=== PATIENT | female | born 1960 | race Caucasian/White ===

== ENCOUNTER 2020-05-12 14:31 | Outpatient (REF) | payer MEDICARE, MEDICAID, SELFPAY ==
[2020-05-12 16:39] LABS: Hematocrit 44.9 % (37-47); Hemoglobin 15.3 g/dl (12.0-16.0); Mean Corpuscular HGB Conc 34.1 g/dl (31.0-35.0); Mean Corpuscular Hemoglobin 32.1 pg (27.0-33.0); Mean Corpuscular Volume 94.1 fL (80-98); Mean Platelet Volume 10.4 fL (9.4-12.3); Platelet Count 352 X10*3/uL (160-400); Red Blood Count 4.77 X10*6/uL (4.20-5.50); Red Cell Distribution Width 11.6 % (11.0-16.0); White Blood Count 9.4 X10*3/uL (4.8-10.8)
[2020-05-12 17:06] LABS: Alanine Aminotransferase 19 U/L (0-31); Albumin Level 4.3 g/dL (3.5-5.0); Alkaline Phosphatase 66 U/L (39-117); Anion Gap 11 (12-20); Aspartate Amino Transferase 22 U/L (5-31); Bilirubin Total 0.7 mg/dL (0.0-1.0); Blood Urea Nitrogen 20 mg/dL (9-16); Calcium 9.2 mg/dL (8.4-10.2); Carbon Dioxide 36 mmol/L (22-29); Chloride 98 mmol/L (96-108); Estimated Glomerular Filt Rate 57; Glucose Random 78 mg/dL (60-115); Magnesium 2.2 mg/dL (1.6-2.6); Potassium 4.1 mmol/l (3.3-5.1); Sodium 141 mmol/L (135-145); Total Protein 6.9 g/dL (6.5-8.0)
[2020-05-12 17:29] LABS: Thyroid Stimulating Hormone 1.99 uIU/mL (0.32-4.0)
== END 2020-05-12 14:32 | disposition home or self-care (01) ==
LOC: HO.HMGCLDS 14:31
PROVIDERS: PCP Internal Medicine; Visit Provider Internal Medicine
DX: K58.2 Mixed irritable bowel syndrome (principal); R33.9 Retention of urine, unspecified; I10 Essential (primary) hypertension; R00.2 Palpitations
CPT/HCPCS: 36415; 80053; 83735; 84443; 85027

== ENCOUNTER → 2020-06-02 14:38 | Outpatient (REF) | payer MEDICARE, MEDICAID, SELFPAY ==
--- NOTE | 2020-06-02 14:43 | ECG_ITS ---
Hook-up date: 2020-06-02 14:51:00 Duration: 47:59:00 Test Indications: PALPITATIONS Medications: 94430 QRS complexes 343 Ventricular ectopics which represent <1 % of total QRS comp. 327 Supraventricular ectopics which represent <1 % of total QRS comp. * Paced QRS complexs which represent % of total QRS comp. VENTRICULAR ECTOPY 343 Isolated 3 Bigeminal Cycles 0 Couplets 0 Runs 0 Beats in Runs * Beats LONGEST at * BPM at :: -- * Beats FASTEST at * BPM at :: -- SUPRAVENTRICULAR ECTOPY 296 Isolated 7 Couplets 3 Runs 17 Beats in Runs 7 Beats LONGEST at 125 BPM at 08:55:06 2020-06-03 7 Beats FASTEST at 125 BPM at 08:55:06 2020-06-03 HEART RATES 41 MIN at 05:03:37 2020-06-03 64 AVG 105 MAX at 13:39:41 2020-06-03 LONGEST RR 1.5280 secs at 07:16:27 2020-06-03 S-T LEVELS Channel 1 - 128 mm at 14:51:00 2020-06-02 - 128 mm at 14:51:00 2020-06-02 Channel 2 - 128 mm at 14:51:00 2020-06-02 - 128 mm at 14:51:00 2020-06-02 Channel 3 - 128 mm at 03:41:01 -- - 128 mm at 03:41:01 Basic rhythm Normal sinus rhythm No long pause or profound bradycardia Occasional Premature ventricular complexes Occasional Premature atrial complexes No sustained arrhythmias Patient did not report any symptoms in the diary Referred By: Sharon Macario Overread By: CARRIE ALTAMIRANO MD
== END ==
LOC: HO.CARD 14:38
PROVIDERS: Visit Provider Internal Medicine
DX: R00.2 Palpitations (principal); I10 Essential (primary) hypertension; K58.2 Mixed irritable bowel syndrome; R33.9 Retention of urine, unspecified
CPT/HCPCS: 93225; 93226

== ENCOUNTER 2020-06-08 13:46 | Outpatient (REF) | payer MEDICARE, MEDICAID, SELFPAY | END 2020-06-08 13:47 | disposition home or self-care (01) | LOC: HO.LAB 13:46 | PROVIDERS: Visit Provider Internal Medicine | DX: Z20.828 Contact with and (suspected) exposure to other viral communicable diseases (principal) | CPT/HCPCS: C9803; U0003 ==

== ENCOUNTER 2020-11-01 11:36 | Outpatient (REF) | payer MEDICARE, MEDICAID, SELFPAY ==
[2020-11-01 14:36] LABS: Alanine Aminotransferase 16 U/L (0-31); Albumin Level 4.5 g/dL (3.5-5.0); Alkaline Phosphatase 68 U/L (39-117); Anion Gap 14 (12-20); Aspartate Amino Transferase 22 U/L (5-31); Bilirubin Direct 0.3 mg/dL (0.0-0.5); Bilirubin Total 0.9 mg/dL (0.0-1.0); Blood Urea Nitrogen 19 mg/dL (9-16); Calcium 9.7 mg/dL (8.4-10.2); Carbon Dioxide 33 mmol/L (22-29); Chloride 101 mmol/L (96-108); Cholesterol 208 mg/dL; Estimated Glomerular Filt Rate > 60; Glucose Fasting 87 mg/dL (60-99); HDL Cholesterol 53 mg/dL; LDL Cholesterol Calculated 127 mg/dl; Potassium 3.9 mmol/L (3.3-5.1); Sodium 144 mmol/L (135-145); Total Protein 7.1 g/dL (6.5-8.0); Triglycerides 140 mg/dL
== END 2020-11-01 11:37 | disposition home or self-care (01) ==
LOC: HO.HMGCLDS 11:36
PROVIDERS: PCP Internal Medicine; Visit Provider Internal Medicine
DX: E78.9 Disorder of lipoprotein metabolism, unspecified (principal); I10 Essential (primary) hypertension
CPT/HCPCS: 36415; 80048; 80061; 80076

== ENCOUNTER 2020-11-08 10:00 | Outpatient (REF) | payer MEDICARE, MEDICAID, SELFPAY ==
[2020-11-08 10:21] LABS: COVID-19 Test Negative (Negative)
== END 2020-11-08 10:01 | disposition home or self-care (01) ==
LOC: HO.LAB 10:00
PROVIDERS: Visit Provider Internal Medicine
DX: Z20.822 Contact with and (suspected) exposure to COVID-19 (principal)
CPT/HCPCS: 36415; 87635; C9803

== ENCOUNTER 2021-01-05 10:51 | Outpatient (REF) | payer MEDICARE, MEDICAID, SELFPAY | END 2021-01-05 10:52 | disposition home or self-care (01) | LOC: HO.HMGCLDS 10:51 | PROVIDERS: PCP Internal Medicine; Visit Provider Internal Medicine | DX: Z20.822 Contact with and (suspected) exposure to COVID-19 (principal) | CPT/HCPCS: C9803; U0003; U0005 ==

== ENCOUNTER 2021-04-04 10:59 | Outpatient (REF) | payer MEDICARE, MEDICAID, SELFPAY ==
[2021-04-04 14:02] LABS: Alanine Aminotransferase 24 U/L (0-31); Albumin Level 4.4 g/dL (3.5-5.0); Alkaline Phosphatase 59 U/L (39-117); Anion Gap 13 (12-20); Aspartate Amino Transferase 24 U/L (5-31); Bilirubin Total 0.8 mg/dL (0.0-1.0); Blood Urea Nitrogen 24 mg/dL (9-16); Calcium 9.7 mg/dL (8.4-10.2); Carbon Dioxide 33 mmol/L (22-29); Chloride 101 mmol/L (96-108); Estimated Glomerular Filt Rate 52; Glucose Random 94 mg/dL (60-115); Potassium 4.2 mmol/L (3.3-5.1); Sodium 143 mmol/L (135-145); Total Protein 7.2 g/dL (6.5-8.0)
== END 2021-04-04 11:00 | disposition home or self-care (01) ==
LOC: HO.HMGCLDS 10:59
PROVIDERS: PCP Internal Medicine; Visit Provider Internal Medicine
DX: E66.09 Other obesity due to excess calories (principal); E78.9 Disorder of lipoprotein metabolism, unspecified; I10 Essential (primary) hypertension
CPT/HCPCS: 36415; 80053

== ENCOUNTER 2021-05-08 08:53 | Outpatient (REF) | payer MEDICARE, MEDICAID, SELFPAY ==
--- NOTE | ~2021-05-08 | MM_ITS ---
EXAMINATION: MM SCREENING DIGITAL BREAST TOMOSYNTHESIS, BILATERAL CLINICAL INFORMATION: Screening. Asymptomatic. The lifetime risk of breast cancer based on the Tyrer-Cuzick Model is 6%. COMPARISON: Mammography: 05/25/2019, 04/01/2018, 11/13/2016 TECHNIQUE: Digital breast tomosynthesis is performed in both the craniocaudal and mediolateral oblique views along with computer-aided detection (CAD). Synthesized 2D images are generated from the tomosynthesis. Additional right MLO view is provided. FINDINGS: The breasts are almost entirely fatty (ACR BI-RADS breast composition Category a). There are no significant masses, abnormal calcifications, or other abnormalities. Background stromal densities are stable. No developing density or architectural abnormality. The axilla are unremarkable. No significant changes. MM/MM tomosynthesis screening BI IMPRESSION: No mammographic evidence of malignancy. ASSESSMENT: BI-RADS 1: Negative RECOMMENDATION: Routine annual mammography screening. This patient's information was entered into a reminder system with a target due date for their next mammogram.
== END 2021-05-08 08:54 | disposition home or self-care (01) ==
LOC: HO.MAMMO 08:53
PROVIDERS: Visit Provider Internal Medicine
DX: Z12.31 Encounter for screening mammogram for malignant neoplasm of breast (principal)
CPT/HCPCS: 77063; 77067

== ENCOUNTER 2021-05-30 14:22 | Outpatient (REF) | payer MEDICARE, MEDICAID, SELFPAY ==
[2021-05-30 17:49] LABS: Urine Cytology See Pathology rpt
== END 2021-05-30 14:23 | disposition home or self-care (01) ==
LOC: HO.LNP 14:22
PROVIDERS: PCP Internal Medicine
DX: R31.9 Hematuria, unspecified (principal)
CPT/HCPCS: 88112; 99212

== ENCOUNTER 2021-07-05 15:19 | Outpatient (REF) | payer MEDICARE, MEDICAID, SELFPAY ==
--- NOTE | ~2021-07-05 | US_ITS ---
EXAMINATION: US RETROPERITONEAL LIMITED (RENAL ONLY) CLINICAL INFORMATION: Hematuria, unspecified. COMPARISON: None TECHNIQUE: Real-time imaging of the kidneys. FINDINGS: RIGHT KIDNEY: 11.0 x 6.1 x 7.2 cm (SAG x AP x TRV). The kidney is normal in size, contour, and echogenicity. Renal cortical thickness is normal. No renal calculi or hydronephrosis. There is an anechoic cyst in the midpole measuring 3.7 x 3.8 x 3.4 cm. LEFT KIDNEY: 10.3 x 6.4 x 6.7 cm (SAG x AP x TRV). The kidney is normal in size, contour, and echogenicity. Renal cortical thickness is normal. No calculi or focal parenchymal lesions. No hydronephrosis. US/US renal BI IMPRESSION: There is an anechoic cyst midpole right kidney measuring 3.7 x 3.8 x 3.4 cm. The left kidney is unremarkable.
== END 2021-07-05 15:20 | disposition home or self-care (01) ==
LOC: HO.HMGCX 15:19
DX: R31.9 Hematuria, unspecified (principal)
CPT/HCPCS: 76775

== ENCOUNTER → 2021-09-18 10:10 | Outpatient (BNVA) | payer MEDICARE, MEDICAID, SELFPAY | PROVIDERS: PCP Internal Medicine | DX: R31.9 Hematuria, unspecified (principal); R35.0 Frequency of micturition; I10 Essential (primary) hypertension; E78.5 Hyperlipidemia, unspecified; F17.210 Nicotine dependence, cigarettes, uncomplicated; Z88.1 Allergy status to other antibiotic agents; Z88.0 Allergy status to penicillin; Z88.8 Allergy status to other drugs, medicaments and biological substances | CPT/HCPCS: 51798; 99212 ==

== ENCOUNTER → 2021-10-30 10:45 | Outpatient (BNVA) | payer MEDICARE, MEDICAID, SELFPAY | PROVIDERS: Visit Provider Advanced Practice Midwife | DX: Z01.419 Encounter for gynecological examination (general) (routine) without abnormal findings (principal) ==

== ENCOUNTER → 2021-11-16 09:49 | Outpatient (BNVA) | payer MEDICARE, MEDICAID, SELFPAY | PROVIDERS: PCP Internal Medicine; Visit Provider Urology | DX: N95.8 Other specified menopausal and perimenopausal disorders (principal); R31.9 Hematuria, unspecified; N36.2 Urethral caruncle; N95.2 Postmenopausal atrophic vaginitis | CPT/HCPCS: 52000; Q3014 ==

== ENCOUNTER 2022-02-22 13:18 | Outpatient (REF) | payer MEDICARE, MEDICAID, SELFPAY ==
[2022-02-22 14:08] LABS: MANUAL DIFF FLAG NO
[2022-02-22 14:21] LABS: Basophils Absolute Auto 0.1 X10*3/uL (0.0-0.2); Basophils Percent Auto 0.5 % (0-2); Eosinophils Absolute Auto 0.1 X10*3/uL (0.0-0.4); Eosinophils Percent Auto 0.5 % (0-4); Hematocrit 42.2 % (37.0-47.0); Hemoglobin 14.7 g/dl (12.0-16.0); Imm Gran Abs Auto 0.04 X10*3/uL (0.00-0.03); Imm Gran Pct Auto 0.4 % (0.0-0.4); Lymphocytes Absolute Auto 3.3 X10*3/uL (1.2-4.9); Mean Corpuscular HGB Conc 34.8 g/dl (31.0-35.0); Mean Corpuscular Hemoglobin 31.8 pg (27.0-33.0); Mean Corpuscular Volume 91.3 fL (80.0-98.0); Mean Platelet Volume 10.5 fL (9.4-12.3); Monocytes Absolute Auto 0.7 X10*3/uL (0.1-1.2); Monocytes Percent Auto 6.4 % (2-11); Neutrophils Absolute Auto 6.8 x10*3/uL (2.0-8.3); Neutrophils Percent Auto 62.2 % (45-73); Platelet Count 325 X10*3/uL (160-400); Red Blood Count 4.62 X10*6/uL (4.20-5.50); White Blood Count 10.9 X10*3/uL (4.8-10.8)
[2022-02-22 14:50] LABS: Alanine Aminotransferase 28 U/L (0-31); Albumin Level 4.5 g/dL (3.5-5.0); Alkaline Phosphatase 65 U/L (39-117); Anion Gap 17 (12-20); Aspartate Amino Transferase 31 U/L (5-31); Bilirubin Total 1.3 mg/dL (0.0-1.0); Blood Urea Nitrogen 17 mg/dL (9-16); Calcium 9.8 mg/dL (8.4-10.2); Carbon Dioxide 32 mmol/L (22-29); Chloride 98 mmol/L (96-108); Estimated Glomerular Filt Rate > 60; Glucose Random 92 mg/dL (60-115); Potassium 3.9 mmol/L (3.3-5.1); Sodium 143 mmol/L (135-145); Total Protein 7.2 g/dL (6.5-8.0)
[2022-02-23 22:07] LABS: LDL Cholesterol Direct 124 mg/dL (<100)
== END 2022-02-22 13:19 | disposition home or self-care (01) ==
LOC: HO.HMGCLDS 13:18
PROVIDERS: Visit Provider Internal Medicine
DX: E78.9 Disorder of lipoprotein metabolism, unspecified (principal); I10 Essential (primary) hypertension
CPT/HCPCS: 36415; 80053; 83721; 85025

== ENCOUNTER 2022-09-12 11:42 | Outpatient (REF) | payer MEDICARE, MEDICAID, SELFPAY ==
[2022-09-12 13:53] LABS: MANUAL DIFF FLAG NO
[2022-09-12 14:03] LABS: Basophils Absolute Auto 0.1 X10*3/uL (0.0-0.2); Basophils Percent Auto 0.7 % (0-2); Eosinophils Absolute Auto 0.1 X10*3/uL (0.0-0.4); Eosinophils Percent Auto 1.2 % (0-4); Hematocrit 42.9 % (37.0-47.0); Hemoglobin 14.7 g/dl (12.0-16.0); Imm Gran Abs Auto 0.03 X10*3/uL (0.00-0.03); Imm Gran Pct Auto 0.3 % (0.0-0.4); Lymphocytes Absolute Auto 3.1 X10*3/uL (1.2-4.9); Lymphocytes Percent Auto 34.8 % (20-40); Mean Corpuscular HGB Conc 34.3 g/dl (31.0-35.0); Mean Corpuscular Hemoglobin 31.2 pg (27.0-33.0); Mean Corpuscular Volume 91.1 fL (80.0-98.0); Mean Platelet Volume 9.9 fL (9.4-12.3); Monocytes Absolute Auto 0.7 X10*3/uL (0.1-1.2); Monocytes Percent Auto 7.7 % (2-11); Neutrophils Percent Auto 55.3 % (45-73); Platelet Count 328 X10*3/uL (160-400); Red Blood Count 4.71 X10*6/uL (4.20-5.50); Red Cell Distribution Width 11.9 % (11.0-16.0)
[2022-09-12 14:21] LABS: Alanine Aminotransferase 25 U/L (0-31); Albumin Level 4.3 g/dL (3.5-5.0); Alkaline Phosphatase 56 U/L (39-117); Anion Gap 16 (12-20); Aspartate Amino Transferase 21 U/L (5-31); Bilirubin Total 0.9 mg/dL (0.0-1.0); Blood Urea Nitrogen 26 mg/dL (9-16); Calcium 9.8 mg/dL (8.4-10.2); Carbon Dioxide 31 mmol/L (22-29); Chloride 101 mmol/L (96-108); Estimated Glomerular Filt Rate > 60; Glucose Random 99 mg/dL (60-115); Potassium 3.8 mmol/L (3.3-5.1); Sodium 144 mmol/L (135-145); Total Protein 6.9 g/dL (6.5-8.0)
[2022-09-13 19:43] LABS: LDL Cholesterol Direct 137 mg/dL (<100)
== END 2022-09-12 11:43 | disposition home or self-care (01) ==
LOC: HO.HMGCLDS 11:42
PROVIDERS: PCP Internal Medicine; Visit Provider Internal Medicine
DX: I10 Essential (primary) hypertension (principal); E78.9 Disorder of lipoprotein metabolism, unspecified
CPT/HCPCS: 36415; 80053; 83721; 85025

== ENCOUNTER 2022-12-01 13:03 | Emergency (ER) | payer MEDICARE, MEDICAID, SELFPAY ==
--- NOTE | ~2022-12-01 | XR_ITS ---
EXAMINATION: XR HAND, LEFT CLINICAL INFORMATION: Dorsal pain status post dog bite COMPARISON: December 26, 2015 TECHNIQUE: PA, lateral, and oblique views of the left hand. FINDINGS: There is no evidence of acute fracture or dislocation of the left hand. No radiopaque foreign bodies identified. There is edema seen about the dorsum of the carpal metacarpal joints with a few foci of air being present. There is degenerative change with spurring about the proximal and distal interphalangeal joints as well as the first carpal metacarpal joint with some subchondral cysts about the first metacarpal head there is mild spurring about the first carpal metacarpal joint. XR/XR hand LT min 3V IMPRESSION: Edema about the dorsum of the hand in region of a few gas densities. No radiopaque foreign body. Changes of osteoarthritis.
[2022-12-01 14:09] VITALS: BP 130/89; PULSE 82; RESP 18; TEMP 37.1; O2SAT 97; BMI 28.4
--- NOTE | 2022-12-01 14:14 | PC.NURSE ---
pt left hand placed in solution of equal parts iodine, NS, and Hydrogen peroxide- tetanus to be updated, and analgesia to be provided
[2022-12-01] MEDS: Acetaminophen 325 MG TABLET 975 MG PO (14:21)
[2022-12-01] MEDS: Diphth,Pertus(ACell),Tet Adult 0.5 ML SYRINGE IM (14:21)
[2022-12-01] MEDS: Ibuprofen 600 MG TABLET PO (14:21)
--- NOTE | 2022-12-01 14:25 | PC.NURSE ---
pt medicated per MAR
--- NOTE | 2022-12-01 14:27 | ED.ANIMALBIT ---
HPI - Animal Bite General Chief Complaint: Animal Bite Stated Complaint: animal bite Time Seen by Provider: 12/01/22 13:39 Source: patient Mode of arrival: ambulatory Limitations: no limitations History of Present Illness HPI narrative: 62-year-old female with history of HTN, HLD, obesity, hypertensive nephropathy, deafness, sciatica who presents to the ER for evaluation of a dog bite to her left hand that happened 09:00 this morning. She reports that it is unknown dog, it is up-to-date on his vaccinations. The dog 0 bit down on her left hand, puncturing the dorsal aspect, she feels like it got down to the bone. She also has some bruising to the palm but no open wounds. No active bleeding on arrival. She states she has pain and limited motion of her digits 2 through 5. She feels like her hand is stiff. She reports severe pain. She is not up-to-date on her tetanus shot. MD complaint: animal bite Onset (ago): hour(s) Animal: dog Description of animal: household pet Mechanism: bite Location - Extremities: left: hand Pain description: sharp Severity scale (1-10): 9 Context: playing with animal Associated symptoms: weakness Treatments prior to arrival: wound dressing(s) Related Data Patient tetanus UTD: No Previous Rx's Medication Instructions Recorded diltiazem HCl 240 mg 240 mg PO DAILY #90 caps 07/11/22 capsule,extended release 24 hr hydrochlorothiazide 12.5 mg capsule 12.5 mg PO DAILY #90 caps 07/11/22 losartan 50 mg tablet 50 mg PO DAILY #90 caps 07/11/22 simvastatin 10 mg tablet 10 mg PO BEDTIME #90 caps 07/11/22 meloxicam 15 mg tablet 15 mg PO DAILY 14 days #14 tabs 07/12/22 cefuroxime axetil 500 mg tablet 500 mg PO BID #14 tabs 12/01/22 hydrocodone 5 mg-acetaminophen 325 1 tab PO Q8H PRN severe pain 12/01/22 mg tablet (scale score 7-10) #6 tabs metronidazole 500 mg tablet 500 mg PO Q8H 7 days #21 tabs 12/01/22 Allergies Allergy/AdvReac Type Severity Reaction Status Date / Time penicillin V Allergy Unknown N/V Verified 07/12/22 10:25 Penicillins [PENICILLINS] Allergy Unknown IN HISTORY Verified 07/12/22 10:25 AND DOESN'T REMEMBER carisoprodol [From [facility]] AdvReac Intermediate VOMITED Verified 07/12/22 10:25 amoxicillin Allergy Unknown GI upset Uncoded 07/12/22 10:25 Review of Systems Review of Systems: Yes all other systems are reviewed and are negative [facility], [facility] Past Medical History Medical History Abscess of breast, right Back pain COPD (chronic obstructive pulmonary disease) Deafness Generalized arthritis Hyperlipidemia Hypertension, essential IBS (irritable bowel syndrome) Incomplete emptying of bladder Lipid disorder Palpitations Thoracic disc herniation Urinary urgency Surgical History History of colonoscopy History of removal of cyst History of surgery Family History Family History Father Dementia Mother No problems noted. Other Mental health disorder Social History Social History Housing: Apartment Alcohol intake: current Alcohol intake frequency: a few times a month Patient Tobacco Use Status: Current everyday Tobacco user Tobacco use type: Cigarette Cigarettes Per Day: 10 e-Cigarette/Vaping Use: Never Used Advance Directives: No Current occupational status: unemployed and retired Sexual orientation: Straight/Heterosexual Gender identity: Female Cognitive needs: No Hearing needs: Yes Vision needs: Yes Physical Exam ED Vital Signs: Vital Signs - 24 hr 12/01/22 14:09 Temperature 98.7 F Pulse Rate 82 Respiratory Rate 18 Blood Pressure 130/89 Pulse Oximetry 97 Oxygen Delivery Method Room Air BMI result Body Mass Index 28.4 Appearance: Alert. Oriented X3. No acute distress. HEENT: normal inspection CVS: Normal heart rate and rhythm. Pulses normal. Respiratory: No respiratory distress. Skin: Skin warm and dry. Normal skin color. Normal skin turgor. No rashes. Extremities: left dorsal hand with 2 small <1 cm superficial abrasions/ Skin tears with mild surrounding edema and early ecchymosis. Pain with hand grasp. Neurovascularly intact distally. 2+ radial pulse. No snuffbox tenderness. The thenar eminence without open wounds but has areas of ecchymosis. Neuro: Oriented X 3. No motor deficit. No sensory deficit. Medications Administered Discontinued Medications Generic Name Dose Route Start Last Admin Trade Name Althea PRN Reason Stop Dose Admin Acetaminophen 975 mg 12/01/22 14:09 12/01/22 14:21 Acetaminophen 325 Mg Tablet PO 12/01/22 14:10 975 mg ONCE ONE Administration Cefuroxime Axetil 500 mg 12/01/22 14:40 12/01/22 14:50 Cefuroxime Axetil 500 Mg Tablet PO 12/01/22 14:41 500 mg ONCE ONE Administration Diphtheria/Tetanus/Acell Pertussis 0.5 ml 12/01/22 14:07 12/01/22 14:21 Diphth,Pertus(Acell),Tet Adult 0.5 Ml Syringe IM 12/01/22 14:08 0.5 ml .ONCE ONE Administration Ibuprofen 600 mg 12/01/22 14:09 12/01/22 14:21 Ibuprofen 600 Mg Tablet PO 12/01/22 14:10 600 mg ONCE ONE Administration Metronidazole 500 mg 12/01/22 14:40 12/01/22 14:51 Metronidazole 500 Mg Tablet PO 12/01/22 14:41 500 mg ONCE ONE Administration Medical Decision Making Medical Decision Making MDM Narrative: 62-year-old female presents to the ER for evaluation of a dog bite to her left hand that occurred this morning. Dog in the household patent is up-to-date on shots. She was given her tetanus shot today. She was started on oral antibiotics, cefuroxime and Flagyl given her penicillin allergy. She has puncture santos on the dorsal aspect of the left hand. X-ray does not seem to have any bony involvement. Area was soaked in solution of saline, Hydrea peroxide, iodine. Area was cleansed and irrigated. Antibiotic ointment was applied and a clean sterile dressing along with a Ken wrap for compression and support. Discussed wound care. She is stable for discharge home. Return precautions were discussed. Differential Diagnosis Differential Diagnoses: The differential diagnosis associated with the presentation includes Dog bite, open fracture, contaminated wound, tetanus, rabies exposure Independent Interpretation I performed an independent interpretation of an: Plain X-Ray Interpretation: No appreciated fracture, agrees radiologist read Radiology Impression Discussion of test interpretation with radiology: I have reviewed the radiologist's reading. Radiologist Impression: ?XR/XR hand LT min 3V IMPRESSION: Edema about the dorsum of the hand in region of a few gas densities. No radiopaque foreign body. ? Changes of osteoarthritis. External Record Review External record reviewed: Prior outpatient labs and Prior outpatient radiology Prescription Management I considered prescription management with: Pain Medication and Antibiotic Chronic Conditions Patient?s care impacted by: Hypertension Critical Care Time Critical Care Time Critical Care Time: No Discharge Plan Discharge Clinical Impression: Dog bite Patient Disposition: Home, Self-Care Instructions: Animal Bite (ED) Additional Instructions: Your x-ray today did not show any evidence of bone involvement from the dog bite. Recommend daily dressing changes. Recommend bacitracin or Neosporin to the cuts once per day. Allow opened air for several hours per day. Use ice to the area to help with pain and swelling. Wear the compression/ Ken wrap as needed for pain and swelling. Take the prescribed antibiotics to help prevent infection. It is important you take the entire course and do not miss any doses. Recommend Tylenol and Motrin for [id number] pain. Take the prescribed narcotic pain medication for severe pain only. Do not drive after taking this medication. Follow-up with your doctor. If you develop signs of infection such as increased pain, swelling, redness, drainage or any other concerning sign or symptom call 911 or come back to the ER for further evaluation. Prescriptions: New cefuroxime axetil 500 mg tablet 500 mg PO BID Qty: 14 0RF metronidazole 500 mg tablet 500 mg PO Q8H 7 Days Qty: 21 0RF hydrocodone-acetaminophen 5-325 mg tablet 1 tab PO Q8H PRN (Reason: severe pain (scale score 7-10)) Qty: 6 0RF Rx Instructions: Partial Fill upon patient request. No Action simvastatin 10 mg tablet 10 mg PO BEDTIME Qty: 90 0RF diltiazem HCl 240 mg capsule,extended release 24hr 240 mg PO DAILY Qty: 90 0RF hydrochlorothiazide 12.5 mg capsule 12.5 mg PO DAILY Qty: 90 0RF losartan 50 mg tablet 50 mg PO DAILY Qty: 90 0RF meloxicam 15 mg tablet 15 mg PO DAILY 14 Days Qty: 14 0RF Referrals: Lupillo Vázquez MD [Primary Care Provider] - (dog bite) Interventions: ED Discharge Assessment Last Done: 12/01/22 15:59 Discharge Date/Time: 12/01/22 16:00
[2022-12-01] MEDS: metroNIDAZOLE 500 MG TABLET PO (14:51)
--- NOTE | 2022-12-01 14:54 | PC.NURSE ---
Pt medicated per AUG- pt given flagyl and vantin, XR pending
== END 2022-12-01 16:00 | disposition home or self-care (01) ==
PROVIDERS: Emergency Provider Emergency Medicine; PCP Internal Medicine
DX: S61.452A Open bite of left hand, initial encounter (principal); S60.512A Abrasion of left hand, initial encounter; F17.210 Nicotine dependence, cigarettes, uncomplicated; W54.0XXA Bitten by dog, initial encounter; Y93.9 Activity, unspecified; Y92.9 Unspecified place or not applicable; Y99.9 Unspecified external cause status; Z79.899 Other long term (current) drug therapy; Z71.6 Tobacco abuse counseling; Z23 Encounter for immunization
CPT/HCPCS: 73130; 90471; 90715; 99283; 99284

== ENCOUNTER 2023-02-27 11:42 | Outpatient (AMB) | payer MEDICARE, MEDICAID, SELFPAY ==
--- NOTE | 2023-02-27 11:45 | MHC.PC.OV ---
Vital Signs 02/27/23 11:48 Height 5 ft 4 in Weight 222 lb BMI 38.1 BP 122/80 Blood Pressure Location Lt brachial Position Sitting Pulse 64 Pulse Source Pulse Oximeter Temp 98.2 F Temp Source Oral Pulse Oximetry (%) 98 Oxygen Delivery Method Room Air Intake Visit Reasons: follow up labs, continuation of care Allergies penicillin V Allergy (Unknown, Verified 02/27/23 11:49) N/V Penicillins [PENICILLINS] Allergy (Unknown, Verified 02/27/23 11:49) IN HISTORY AND DOESN'T REMEMBER carisoprodol [From [facility]] Adverse Reaction (Intermediate, Verified 02/27/23 11:49) VOMITED amoxicillin Allergy (Unknown, Uncoded 02/27/23 11:49) GI upset Medication List - Last Reconciled 02/27/23 by Lupillo Vázquez MD cefuroxime axetil 500 mg PO BID diltiazem HCl 240 mg PO DAILY hydrochlorothiazide 12.5 mg PO DAILY losartan 50 mg PO DAILY metronidazole 500 mg PO Q8H 7 days simvastatin 10 mg PO BEDTIME Tobacco use date assessed: 02/27/23 HPI follow up labs, continuation of care HPI Details Patient is a 63-year-old female who is hearing impaired came in today for a follow-up appointment Patient is able to read lips and is able to communicate Tells me that she has been having pain left lower quadrant for few days now finally she got through with 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 She is also in need of other refills which I have sent for her. She look non toxic and is comfortable, we talked about diet restrictions in diverticulitis as patient is hungry and was going to get something to eat. Due for labs to be done today Blood pressure is stable with diltiazem 240 mg once a day hydrochlorothiazide 12.5 mg once a day and losartan 50 mg once a day, patient is tolerating medications no side effects Lipids controlled with simvastatin 10 mg once a day, Showing me a skin growth on left shoulder which looks like a wart, I offered her a dermatology appointment she said that she is going to treated herself. BMI is elevated patient need to lose weight Follow-up 3 months [facility] Medical History Abscess of breast, right Back pain COPD (chronic obstructive pulmonary disease) Deafness Generalized arthritis Hyperlipidemia Hypertension, essential IBS (irritable bowel syndrome) Incomplete emptying of bladder Lipid disorder Palpitations Thoracic disc herniation Urinary urgency Surgical History History of colonoscopy History of removal of cyst History of surgery Family History Father Dementia Mother No problems noted. Other Mental health disorder Social History Housing: Apartment Alcohol intake: current Alcohol intake frequency: a few times a month Patient Tobacco Use Status: Current everyday Tobacco user Tobacco use type: Cigarette Cigarettes Per Day: 10 e-Cigarette/Vaping Use: Never Used Current occupational status: unemployed and retired Sexual orientation: Straight/Heterosexual Gender identity: Female Cognitive needs: No Hearing needs: Yes Vision needs: Yes Questionnaire PHQ-9 Over the last 2 weeks, how often have you been bothered by any of the following problems? 1. Little interest or pleasure in doing things: not at all 2. Feeling down, depressed, or hopeless: not at all 3. Trouble falling or staying asleep, or sleeping too much: not at all 4. Feeling tired or having little energy: several days 5. Poor appetite or overeating: not at all 6. Feeling bad about yourself - or that you are a failure or have let yourself or your family down: not at all 7. Trouble concentrating on things, such as reading the newspaper or watching television: not at all 8. Moving or speaking so slowly that other people could have noticed. Or the opposite - being so fidgety or restless that you have been moving around a lot more than usual: not at all 9. Thoughts that you would be better off or of hurting yourself in some way: not at all Total score: 1 Depression Screening Interpretation: Negative 63298 - PHQ-9 Billing: Yes Source: Developed by Drs. Dejan Cruz, Louise Gomez, Leodan Harrison and colleagues, with an educational maria eugenia from [employer]. Thrive Questionnaire Date Thrive assessed: 02/28/22 MARK ANTHONY-7 AMB Questionnaire MARK ANTHONY-7 Date MARK ANTHONY - 7 assessed: 02/28/22 Source: Developed by Drs. Dejan Cruz, Louise Gomez, Leodan Harrison and colleagues, with an educational maria eugenia from [employer]. Review of Systems Const Denies chills and Denies fever(s) ENT Denies epistaxis and Denies nasal discharge Card Denies chest pain Resp Denies chest congestion, Denies cough and Denies hemoptysis Skin/Breast Denies rash Neuro Reports no additional complaints Psych Reports no additional complaints Endo Reports no additional complaints Physical exam (Primary Care) Vital Signs: Last Vital Signs Temp 98.2 F 02/27/23 11:48 Pulse 64 02/27/23 11:48 BP 122/80 02/27/23 11:48 Pulse Ox 98 02/27/23 11:48 Oxygen Delivery Method Room Air 02/27/23 11:48 BMI result Body Mass Index 38.1 Tobacco/Smoking Status: Tobacco use Status Tobacco use date assessed 02/27/23 02/27/23 11:52 Patient Tobacco Use Status Current everyday Tobacco 02/27/23 11:52 Tobacco use type Cigarette 02/27/23 11:52 e-Cigarette/Vaping Use Never Used 02/27/23 11:52 Depression Screening Interpretation: Negative Thrive Assessment: Date of Thrive Assessment Date Thrive assessed 02/28/22 02/27/23 11:52 Const General: cooperative, comfortable and no acute distress Orientation/consciousness: patient oriented x3 HENMT Head: Yes normocephalic Eyes General: appearance normal, both eyes and all related structures Neck Neck: Yes supple Resp Effort & Inspection: normal respiratory effort, no cough and no stridor Cardio Rhythm: regular rhythm Heart sounds: S1 normal heart sound present and S2 normal heart sound present Skin General skin exam: turgor normal Neuro General: patient oriented x3, tone normal and moves all extremities Extrem Right lower extremity: no edema Left lower extremity: no edema Assessment and Plan Assessment & Plan (1) Hypertension, essential: Code(s): I10 - Essential (primary) hypertension (2) Lipid disorder: Code(s): E78.9 - Disorder of lipoprotein metabolism, unspecified (3) Obesity due to excess calories: Code(s): E66.09 - Other obesity due to excess calories Qualifiers: Obesity classification: adult class 2 (BMI 35 - 39.9) Serious obesity comorbidity presence: with serious comorbidity Body mass index: BMI 38.0-38.9 Qualified Code(s): E66.01 - Morbid (severe) obesity due to excess calories; Z68.38 - Body mass index [BMI] 38.0-38.9, adult (4) Hypertensive nephropathy: Code(s): I12.9 - Hypertensive chronic kidney disease with stage 1 through stage 4 chronic kidney disease, or unspecified chronic kidney disease (5) Acute diverticulitis: Code(s): K57.92 - Diverticulitis of intestine, part unspecified, without perforation or abscess without bleeding (6) Abnormal skin growth: Code(s): D49.2 - Neoplasm of unspecified behavior of bone, soft tissue, and skin Plan Patient is a 63-year-old female who is hearing impaired came in today for a follow-up appointment Patient is able to read lips and is able to communicate Tells me that she has been having pain left lower quadrant for few days now finally she got through with 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 She is also in need of other refills which I have sent for her. She look non toxic and is comfortable, we talked about diet restrictions in diverticulitis as patient is hungry and was going to get something to eat. Due for labs to be done today Blood pressure is stable with diltiazem 240 mg once a day hydrochlorothiazide 12.5 mg once a day and losartan 50 mg once a day, patient is tolerating medications no side effects Lipids controlled with simvastatin 10 mg once a day, Showing me a skin growth on left shoulder which looks like a wart, I offered her a dermatology appointment she said that she is going to treated herself. Nephropathy: Kidney functions are stable BMI is elevated patient need to lose weight Follow-up 3 months Orders: Orders Comprehensive Met. Panel Today E66.09 - Other obesity due to excess calories, E78.9 - Disorder of lipoprotein metabolism, unspecified, I10 - Essential (primary) hypertension, K58.9 - Irritable bowel syndrome without diarrhea LDL Cholesterol Direct Today E66.09 - Other obesity due to excess calories, E78.9 - Disorder of lipoprotein metabolism, unspecified, I10 - Essential (primary) hypertension, K58.9 - Irritable bowel syndrome without diarrhea Complete Blood Count Auto Diff Today E66.09 - Other obesity due to excess calories, E78.9 - Disorder of lipoprotein metabolism, unspecified, I10 - Essential (primary) hypertension, K58.9 - Irritable bowel syndrome without diarrhea Medications: Refilled diltiazem HCl 240 mg PO DAILY 90 caps 0RF hydrochlorothiazide 12.5 mg PO DAILY 90 caps 0RF losartan 50 mg PO DAILY 90 caps 0RF simvastatin 10 mg PO BEDTIME 90 caps 0RF Coding Level of Care Code Est Pt Level 4 (39975) Diagnoses Hypertension, essential I10 Lipid disorder E78.9 Obesity due to excess calories E66.01; Z68.38 Obesity classification: adult class 2 (BMI 35 - 39.9) Serious obesity comorbidity presence: with serious comorbidity Body mass index: BMI 38.0-38.9 Hypertensive nephropathy I12.9 Acute diverticulitis K57.92 Abnormal skin growth D49.2
[2023-02-27 11:48] VITALS: BP 122/80; PULSE 64; TEMP 36.8; O2SAT 98; BMI 38.1
== END 2023-02-27 12:20 | disposition home or self-care (01) ==
PROVIDERS: PCP Internal Medicine; Visit Provider Internal Medicine
DX: I10 Essential (primary) hypertension (principal); E66.01 Morbid (severe) obesity due to excess calories; Z68.38 Body mass index [BMI] 38.0-38.9, adult; K57.92 Diverticulitis of intestine, part unspecified, without perforation or abscess without bleeding; E78.9 Disorder of lipoprotein metabolism, unspecified; I12.9 Hypertensive chronic kidney disease with stage 1 through stage 4 chronic kidney disease, or unspecified chronic kidney disease; D49.2 Neoplasm of unspecified behavior of bone, soft tissue, and skin
CPT/HCPCS: 99214

== ENCOUNTER 2023-02-27 12:08 | Outpatient (REF) | payer MEDICARE, MEDICAID, SELFPAY ==
[2023-02-27 13:32] LABS: MANUAL DIFF FLAG NO
[2023-02-27 13:45] LABS: Basophils Percent Auto 0.4 % (0-2); Eosinophils Absolute Auto 0.1 X10*3/uL (0.0-0.4); Eosinophils Percent Auto 0.7 % (0-4); Hematocrit 42.2 % (37.0-47.0); Hemoglobin 14.6 g/dl (12.0-16.0); Imm Gran Abs Auto 0.04 X10*3/uL (0.00-0.03); Imm Gran Pct Auto 0.4 % (0.0-0.4); Lymphocytes Absolute Auto 2.7 X10*3/uL (1.2-4.9); Lymphocytes Percent Auto 28.5 % (20-40); Mean Corpuscular HGB Conc 34.6 g/dl (31.0-35.0); Mean Corpuscular Hemoglobin 32.2 pg (27.0-33.0); Mean Platelet Volume 10.1 fL (9.4-12.3); Monocytes Absolute Auto 0.6 X10*3/uL (0.1-1.2); Monocytes Percent Auto 6.4 % (2-11); Neutrophils Absolute Auto 5.9 x10*3/uL (2.0-8.3); Neutrophils Percent Auto 63.6 % (45-73); Platelet Count 335 X10*3/uL (160-400); Red Blood Count 4.54 X10*6/uL (4.20-5.50); Red Cell Distribution Width 11.9 % (11.0-16.0); White Blood Count 9.3 X10*3/uL (4.8-10.8)
[2023-02-27 14:24] LABS: Alanine Aminotransferase 25 U/L (0-31); Albumin Level 4.3 g/dL (3.5-5.0); Alkaline Phosphatase 59 U/L (39-117); Anion Gap 15 (12-20); Aspartate Amino Transferase 26 U/L (5-31); Bilirubin Total 0.8 mg/dL (0.0-1.0); Blood Urea Nitrogen 17 mg/dL (9-16); Calcium 9.5 mg/dL (8.4-10.2); Carbon Dioxide 32 mmol/L (22-29); Chloride 99 mmol/L (96-108); Estimated Glomerular Filt Rate > 60; Glucose Random 84 mg/dL (60-115); Potassium 3.1 mmol/L (3.3-5.1); Sodium 143 mmol/L (135-145); Total Protein 7.2 g/dL (6.5-8.0)
[2023-02-28 15:47] LABS: LDL Cholesterol Direct 113 mg/dL (<100)
== END 2023-02-27 12:09 | disposition home or self-care (01) ==
LOC: HO.HMGCLDS 12:08
PROVIDERS: PCP Internal Medicine; Visit Provider Internal Medicine
DX: E66.09 Other obesity due to excess calories (principal); I10 Essential (primary) hypertension; K58.9 Irritable bowel syndrome, unspecified; E78.9 Disorder of lipoprotein metabolism, unspecified
CPT/HCPCS: 36415; 80053; 83721; 85025

== ENCOUNTER 2023-03-06 10:47 | Outpatient (REF) | payer MEDICARE, MEDICAID, SELFPAY ==
[2023-03-06 13:36] LABS: Anion Gap 13 (12-20); Carbon Dioxide 32 mmol/L (22-29); Chloride 101 mmol/L (96-108); Potassium 3.1 mmol/L (3.3-5.1); Sodium 143 mmol/L (135-145)
== END 2023-03-06 10:48 | disposition home or self-care (01) ==
LOC: HO.HMGCLDS 10:47
PROVIDERS: PCP Internal Medicine; Visit Provider Internal Medicine
DX: E87.6 Hypokalemia (principal)
CPT/HCPCS: 36415; 80051

== ENCOUNTER 2023-03-28 12:53 | Emergency (ER) | payer MEDICARE, MEDICAID, SELFPAY ==
--- NOTE | ~2023-03-28 | CT_ITS ---
EXAMINATION: CT ABDOMEN AND PELVIS WITHOUT CONTRAST CLINICAL INFORMATION: Left-sided abdominal pain. COMPARISON: No similar priors. TECHNIQUE: Multidetector volumetric imaging was performed from the superior aspect of the liver through the pubic symphysis. Sagittal and coronal reformatted images were obtained on the technologist's workstation. This CT examination was performed using dose optimization techniques as appropriate, variously including the following: *Automated exposure control *Adjustment of mA and/or kV according to patient size (this includes techniques or standardized protocols for targeted exams where dose is matched to indication/reason for exam; i.e. extremities or head) *Use of iterative reconstruction technique DLP: 881 mGy-cm FINDINGS: The lack of intravenous contrast limits evaluation of the solid visceral organs including the liver, spleen, pancreas, and kidneys. LUNG BASES: No focal consolidation or pleural effusion. Solid 3 mm nodule in the left lower lobe. LIVER, GALLBLADDER, AND BILIARY TREE: Decreased attenuation liver parenchyma suggesting hepatic steatosis, otherwise the liver is normal in size and shape. Too small to characterize hypodensity adjacent to the gallbladder in the inferior liver, image 34 series 3. No biliary ductal dilatation. The gallbladder is unremarkable with no evidence of radiopaque gallstones, gallbladder wall thickening, or obvious pericholecystic inflammatory changes. PANCREAS: No significant peripancreatic fat stranding or free fluid. SPLEEN: Unremarkable. ADRENAL GLANDS: Unremarkable. KIDNEYS AND URETERS: No hydronephrosis or nephrolithiasis. No perinephric fat stranding. There is a 3.5 cm cystic appearing lesion in the upper pole of the right kidney with suggestion of some minimal heterogeneity and hyperdensity along the anterior margin (coronal image 64 series 6). BLADDER: Unremarkable. GASTROINTESTINAL TRACT: The stomach and the small bowel are nondilated. Normal appendix. Colonic diverticulosis with some pericolonic fat stranding in the sigmoid on image 64 series 3. No bowel obstruction. ABDOMINAL WALL: No significant hernia is appreciated. LYMPH NODES: No lymphadenopathy. VASCULAR: Atherosclerotic disease. Abdominal aorta is normal in caliber. PELVIC VISCERA: Unremarkable. OSSEOUS STRUCTURES: No aggressive appearing osseous abnormalities. Degenerative changes of the spine. CT/CT abdomen pelvis wo IV con IMPRESSION: 1. Findings are most suggestive of mild acute uncomplicated sigmoid diverticulitis. 2. Hepatic steatosis. 3. A 3.5 cm cystic appearing observation in the upper right kidney, likely represents a simple cyst, however there is some questionable minimal heterogeneity along the anterior surface of this cyst. Therefore, further evaluation with an outpatient renal ultrasound or abdominal MRI is recommended to ensure the absence of solid components. 4. A too small to characterize hypodensity in the right hepatic lobe is statistically favored to represent a simple cyst.
[2023-03-28 14:24] VITALS: BP 136/70; PULSE 60; RESP 18; TEMP 36.6; O2SAT 95; BMI 37.5
--- NOTE | 2023-03-28 14:28 | ED.GENADULT ---
HPI - General Adult General Chief complaint: Abdominal Pain Stated complaint: diverticulitis Time Seen by Provider: 03/28/23 17:37 Source: patient, RN notes reviewed and old records reviewed Mode of arrival: ambulatory Limitations: language barrier (Patient is deaf but reads lips. Declined video interpreting services) History of Present Illness HPI narrative: 63-year-old female presents for evaluation of left-sided abdominal pain. Patient reports that she has a long history of diverticulitis. She reports that she had an episode about 3 weeks ago. She was treated with which she believes was level floxacillin and metronidazole. She states her symptoms improved for about a week. Five days ago her pain returned. She has associated nausea and diarrhea. Denies any black or bloody stool. Denies any fevers, chills Patient denies any history abdominal surgeries. She describes her pain as 10/10 and stabbing Related Data Previous Rx's Medication Instructions Recorded cefuroxime axetil 500 mg tablet 500 mg PO BID #14 tabs 12/01/22 metronidazole 500 mg tablet 500 mg PO Q8H 7 days #21 tabs 12/01/22 potassium chloride 40 mEq/15 mL 40 meq (15 mL) PO ONCE Potassium 02/27/23 oral liquid supplement 5 days #75 mL diltiazem HCl 240 mg 240 mg PO DAILY #90 caps 03/18/23 capsule,extended release 24 hr hydrochlorothiazide 12.5 mg capsule 12.5 mg PO DAILY #90 caps 03/18/23 losartan 50 mg tablet 50 mg PO DAILY #90 caps 03/18/23 simvastatin 10 mg tablet 10 mg PO BEDTIME #90 caps 03/18/23 levofloxacin 750 mg tablet 750 mg PO DAILY #14 tabs 03/28/23 metronidazole 500 mg tablet 500 mg PO BID #28 tabs 03/28/23 tramadol 50 mg tablet 50 mg PO TID PRN severe pain 03/28/23 (scale score 7-10) #12 tabs Allergies Allergy/AdvReac Type Severity Reaction Status Date / Time penicillin V Allergy Unknown N/V Verified 03/28/23 14:24 Penicillins [PENICILLINS] Allergy Unknown IN HISTORY Verified 03/28/23 14:24 AND DOESN'T REMEMBER carisoprodol [From [facility]] AdvReac Intermediate VOMITED Verified 03/28/23 14:24 amoxicillin Allergy Unknown GI upset Uncoded 02/27/23 11:49 Review of Systems Constitutional: Constitutional: Denies chills and Denies fever(s) Eyes: Eyes: Denies blurry vision Cardiovascular: Cardiovascular: Denies chest pain and Denies dyspnea Respiratory: Respiratory: Denies cough and Denies dyspnea Gastrointestinal: Gastrointestinal: Reports abdominal pain, Denies melena, Denies hematochezia, Reports diarrhea, Reports loose stools, Reports nausea and Reports vomiting Musculoskeletal: Musculoskeletal: Denies back pain Integumentary/Breasts: Skin/Breast: Denies rash PMFSH Past Medical History Medical History Abscess of breast, right Back pain COPD (chronic obstructive pulmonary disease) Deafness Generalized arthritis Hyperlipidemia Hypertension, essential IBS (irritable bowel syndrome) Incomplete emptying of bladder Lipid disorder Palpitations Thoracic disc herniation Urinary urgency Surgical History History of colonoscopy History of removal of cyst History of surgery Family History Family History Father Dementia Mother No problems noted. Other Mental health disorder Social History Social History Housing: Apartment Alcohol intake: current Alcohol intake frequency: 0-2 drinks per day Patient Tobacco Use Status: Current everyday Tobacco user Tobacco use type: Cigarette Cigarettes Per Day: 10 e-Cigarette/Vaping Use: Never Used Substance Use Type: Marijuana Advance Directives Date on File: 09/13/22 Current occupational status: unemployed and retired Sexual orientation: Straight/Heterosexual Gender identity: Female Cognitive needs: No Hearing needs: Yes Vision needs: Yes Physical Exam ED Vital Signs: Vital Signs - 24 hr 03/28/23 14:24 03/28/23 19:14 Temperature 97.8 F 98.1 F Pulse Rate 60 58 Respiratory Rate 18 18 Blood Pressure 136/70 115/97 H Pulse Oximetry 95 97 Oxygen Delivery Method Room Air BMI result Body Mass Index 37.5 Const General: healthy appearing, comfortable, no acute distress, alert and awake Nutritional Appearance: well nourished Orientation/consciousness: patient oriented x3 HENMT Head: Yes normocephalic and Yes atraumatic Eyes Eyelids: Yes eyelids normal Conjunctivae: conjunctivae normal Sclerae: sclerae normal Corneas: corneas normal Pupils: Equal, round and reactive pupils present EOM: EOMs intact bilaterally Neck Neck: Yes full ROM Resp Effort & Inspection: normal respiratory effort, able to speak in complete sentences and not labored GI Inspection: No distended Palpation (GI): Soft to palpation, not firm, Tenderness to palpation present (GI) in the LLQ and in the LUQ, Guarding due to palpation present (GI) in the LLQ and not rigid Auscultation: normoactive bowel sounds Skin General skin exam: elasticity normal Neuro General: patient oriented x3 Cranial nerves: Yes Equal, round and reactive pupils present and Yes Bilaterally intact EOM present Cognition (Neuro): normal cognition Extrem Other: Moving all extremities well without any obvious deformities Course Course Course Narrative: RME: 63 yold female presents to the ED for left lower quadrant abdominal pain. patient recently diagnosed with diverticulitis 3 weeks ago and finished antiboitcs ( levquin and lovenonx) and still having pain. Repeat labs ordered. patient to be evaluated Reevaluation(s) Reevaluation #1: CT scan shows mild, acute, uncomplicated diverticulitis. The patient has a penicillin allergy so will avoid Augmentin. She will be treated with Levaquin and metronidazole. She will be referred to a general surgeon as she reports this is her 6th episode of diverticulitis Medications Administered Discontinued Medications Generic Name Dose Route Start Last Admin Trade Name Freq PRN Reason Stop Dose Admin Sodium Chloride 1,000 mls @ 999 mls/hr 03/28/23 17:45 03/28/23 18:51 Ns IV 03/28/23 18:45 999 mls/hr .Q1H1M IVETTE Administration Ketorolac Tromethamine 30 mg 03/28/23 17:45 03/28/23 18:58 Ketorolac Tromethamine 30 Mg/Ml Vial IVPUSH 03/28/23 17:46 30 mg ONCE ONE Administration Levofloxacin 750 mg 03/28/23 19:20 03/28/23 19:42 Levofloxacin 750 Mg Tablet PO 03/28/23 19:21 750 mg ONCE ONE Administration Metronidazole 500 mg 03/28/23 19:20 03/28/23 19:42 Metronidazole 500 Mg Tablet PO 03/28/23 19:21 500 mg ONCE ONE Administration Ondansetron HCl 4 mg 03/28/23 17:45 03/28/23 18:58 Ondansetron Hcl 4 Mg/2 Ml Vial IVPUSH 03/28/23 17:46 4 mg ONCE ONE Administration Potassium Chloride 40 meq 03/28/23 18:05 03/28/23 18:58 Potassium Chloride Er 20 Meq Tab.Er.Prt PO 03/28/23 18:06 40 meq ONCE ONE Administration Medical Decision Making Medical Decision Making [facility] Narrative: 63-year-old female presents for evaluation abdominal pain with diarrhea and vomiting. She reports a long history of diverticulitis and this is the most likely diagnosis at this time. She reports that she was recently treated for similar about 3 weeks ago. She has an allergy to penicillin therefore was given Levaquin and metronidazole. Given the recurrent symptoms will get a CT scan to rule out perforation versus diverticular abscess. Patient has no evidence of sepsis. Differential Diagnosis Differential Diagnoses: The differential diagnosis associated with the presentation includes Acute diverticulitis Diverticular abscess Microperforation Pancreatitis Peptic ulcer disease Colitis Lab Data MDM Lab Attestation statement: I reviewed the patient's lab results. No leukocytosis, no anemia, normal platelet count. Patient's potassium is just below normal at 3.2. This could be replaced orally and she is not actively vomiting. No other significant electrolyte abnormalities. Total bilirubin is just barely above normal at 1.2, otherwise no significant liver enzyme changes 03/28/23 14:36 03/28/23 14:36 Labs: Lab Results 03/28/23 03/28/23 Range/Units 14:36 14:44 WBC 10.3 (4.8-10.8) X10*3/uL RBC 4.92 (4.20-5.50) X10*6/uL Hgb 15.7 (12.0-16.0) g/dl Hct 45.1 (37.0-47.0) % MCV 91.7 (80.0-98.0) fL MCH 31.9 (27.0-33.0) pg MCHC 34.8 (31.0-35.0) g/dl RDW 11.9 (11.0-16.0) % Plt Count 335 (160-400) X10*3/uL MPV 9.9 (9.4-12.3) fL Immature Gran % (Auto) 0.3 (0.0-0.4) % Neut % (Auto) 60.9 (45-73) % Lymph % (Auto) 31.7 (20-40) % [place] % (Auto) 6.0 (2-11) % Eos % (Auto) 0.7 (0-4) % Baso % (Auto) 0.4 (0-2) % Lymph # (Auto) 3.3 (1.2-4.9) X10*3/uL [place] # (Auto) 0.6 (0.1-1.2) X10*3/uL Eos # (Auto) 0.1 (0.0-0.4) X10*3/uL Baso # (Auto) 0.0 (0.0-0.2) X10*3/uL Abs Immat Gran (auto) 0.03 (0.00-0.03) X10*3/uL Absolute Neuts (auto) 6.3 (2.0-8.3) x10*3/uL Absolute Nucleated RBC 0.000 (0.0-0.012) X10*3/uL Nucleated RBC % (auto) 0.0 (0.0-0.2) /100WBC Sodium 142 (135-145) mmol/L Potassium 3.2 L (3.3-5.1) mmol/L Chloride 99 (96-108) mmol/L Carbon Dioxide 29 (22-29) mmol/L Anion Gap 17 (12-20) BUN 14 (9-16) mg/dL Creatinine 0.87 (0.5-1.4) mg/dL Estim Creat Clear Calc 75.9 Estimated GFR > 60 Random Glucose 96 (60-115) mg/dL Calcium 10.4 H D (8.4-10.2) mg/dL Total Bilirubin 1.2 H (0.0-1.0) mg/dL AST 27 (5-31) U/L ALT 23 (0-31) U/L Alkaline Phosphatase 64 (39-117) U/L Total Protein 7.8 (6.5-8.0) g/dL Albumin 4.5 (3.5-5.0) g/dL Lipase 18 (8-78) U/L Urine Color Yellow Urine Appearance Clear Urine pH 5.5 (5.0-9.0) Ur Specific [place] 1.010 (1.005-1.025) Urine Protein Negative (Neg-Trace) mg/dL Urine Glucose (UA) Negative (Negative) mg/dL Urine Ketones Negative (Negative) mg/dL Urine Blood Small (1+) H (Negative) Urine Nitrite Negative (Negative) Ur Leukocyte Esterase Moderate (2+) H (Negative) Urine RBC 0-2 (0-2) /HPF Urine WBC 11-20 H (0-5) /HPF Ur Squamous Epith Cells 6-10 (0-2) /HPF Urine Bacteria Trace (None Seen) Hyaline Casts 0-2 (0-2) /LPF Radiology Impression Discussion of test interpretation with radiology: I have reviewed the radiologist's reading. (Mild uncomplicated diverticulitis) Discharge Plan Discharge Clinical Impression: Acute diverticulitis, Acute hypokalemia Patient Disposition: Home, Self-Care Instructions: Diverticulitis (ED) Additional Instructions: Your CT scan shows another episode of diverticulitis. Take both antibiotics as prescribed Given that this is your 6 episode of diverticulitis, I think you should follow-up with a general surgeon. Occasionally patients with recurrent diverticulitis may have part of their colon removed to prevent further episodes Prescriptions: New levofloxacin 750 mg tablet 750 mg PO DAILY Qty: 14 0RF metronidazole 500 mg tablet 500 mg PO BID Qty: 28 0RF tramadol 50 mg tablet 50 mg PO TID PRN (Reason: severe pain (scale score 7-10)) Qty: 12 0RF No Action potassium chloride 40 mEq/15 mL liquid 40 meq PO ONCE 5 Days Qty: 75 0RF simvastatin 10 mg tablet 10 mg PO BEDTIME Qty: 90 0RF diltiazem HCl 240 mg capsule,extended release 24hr 240 mg PO DAILY Qty: 90 0RF hydrochlorothiazide 12.5 mg capsule 12.5 mg PO DAILY Qty: 90 0RF losartan 50 mg tablet 50 mg PO DAILY Qty: 90 0RF cefuroxime axetil 500 mg tablet 500 mg PO BID Qty: 14 0RF metronidazole 500 mg tablet 500 mg PO Q8H 7 Days Qty: 21 0RF Referrals: Kenny Coffey MD [Physician] - (recurrent diverticulitis) Interventions: ED Discharge Assessment Last Done: 03/28/23 20:35 Discharge Date/Time: 03/28/23 20:05
[2023-03-28 14:39] LABS: MANUAL DIFF FLAG NO
[2023-03-28 14:40] LABS: Basophils Percent Auto 0.4 % (0-2); Eosinophils Absolute Auto 0.1 X10*3/uL (0.0-0.4); Eosinophils Percent Auto 0.7 % (0-4); Hematocrit 45.1 % (37.0-47.0); Hemoglobin 15.7 g/dl (12.0-16.0); Imm Gran Abs Auto 0.03 X10*3/uL (0.00-0.03); Imm Gran Pct Auto 0.3 % (0.0-0.4); Lymphocytes Absolute Auto 3.3 X10*3/uL (1.2-4.9); Lymphocytes Percent Auto 31.7 % (20-40); Mean Corpuscular HGB Conc 34.8 g/dl (31.0-35.0); Mean Corpuscular Hemoglobin 31.9 pg (27.0-33.0); Mean Corpuscular Volume 91.7 fL (80.0-98.0); Mean Platelet Volume 9.9 fL (9.4-12.3); Monocytes Absolute Auto 0.6 X10*3/uL (0.1-1.2); Neutrophils Absolute Auto 6.3 x10*3/uL (2.0-8.3); Neutrophils Percent Auto 60.9 % (45-73); Platelet Count 335 X10*3/uL (160-400); Red Blood Count 4.92 X10*6/uL (4.20-5.50); Red Cell Distribution Width 11.9 % (11.0-16.0); White Blood Count 10.3 X10*3/uL (4.8-10.8)
[2023-03-28 14:53] LABS: Appearance Urine Clear; Color Urine Yellow; Glucose Urine UA Negative (Negative); Leukocyte Esterase Urine Moderate (2+) (Negative); Nitrite Urine Negative (Negative); PH 5.5 (5.0-9.0); UMIC TRIGGER UACC YES; Urine Blood Small (1+) (Negative); Urine Ketones Negative (Negative); Urine Protein Negative (Neg-Trace)
[2023-03-28 14:54] LABS: Alanine Aminotransferase 23 U/L (0-31); Albumin Level 4.5 g/dL (3.5-5.0); Alkaline Phosphatase 64 U/L (39-117); Anion Gap 17 (12-20); Aspartate Amino Transferase 27 U/L (5-31); Bilirubin Total 1.2 mg/dL (0.0-1.0); Blood Urea Nitrogen 14 mg/dL (9-16); Calcium 10.4 mg/dL (8.4-10.2); Carbon Dioxide 29 mmol/L (22-29); Chloride 99 mmol/L (96-108); Creatinine Clr Calc Pharmacy 75.9; Estimated Glomerular Filt Rate > 60; Glucose Random 96 mg/dL (60-115); Lipase 18 U/L (8-78); Potassium 3.2 mmol/L (3.3-5.1); Sodium 142 mmol/L (135-145); Total Protein 7.8 g/dL (6.5-8.0)
[2023-03-28 15:05] LABS: Bacteria Urine Trace (None Seen); Hyaline Casts Urine 0-2 /LPF (0-2); RBC Urine 0-2 /HPF (0-2); UACC Culture Trigger YES
[2023-03-28] MEDS: 0.9 % Sodium Chloride 1,000 ML 999 ML IV (18:51)
[2023-03-28] MEDS: Ketorolac Tromethamine 30 MG/ML VIAL IVPUSH (18:58)
[2023-03-28] MEDS: ondansetron HCL 4 MG/2 ML VIAL IVPUSH (18:58)
[2023-03-28] MEDS: Potassium Chloride ER 20 MEQ TAB.ER.PRT 40 MEQ PO (18:58)
[2023-03-28 19:14] VITALS: BP 115/97; PULSE 58; RESP 18; TEMP 36.7; O2SAT 97
[2023-03-28] MEDS: levoFLOXacin 750 MG TABLET PO (19:42)
[2023-03-28] MEDS: metroNIDAZOLE 500 MG TABLET PO (19:42)
== END 2023-03-28 20:05 | disposition home or self-care (01) ==
PROVIDERS: Physician Assistant; Emergency Provider Emergency Medicine; PCP Internal Medicine
DX: K57.32 Diverticulitis of large intestine without perforation or abscess without bleeding (principal); E87.6 Hypokalemia; I10 Essential (primary) hypertension; E78.5 Hyperlipidemia, unspecified; F17.210 Nicotine dependence, cigarettes, uncomplicated; Z79.899 Other long term (current) drug therapy
CPT/HCPCS: 36415; 74176; 80053; 81001; 83690; 85025; 87086; 96374; 96375; 99284; 99285; J1885; J2405

== ENCOUNTER 2023-04-10 12:51 | Outpatient (AMB) | payer MEDICARE, MEDICAID, SELFPAY ==
--- NOTE | 2023-04-10 13:03 | A.OFFPC_ITS ---
Vital Signs 04/10/23 13:08 Height 5 ft 4 in Weight 212 lb BMI 36.4 BP 118/82 Blood Pressure Location Lt brachial Position Sitting Pulse 65 Pulse Source Pulse Oximeter Pulse Oximetry (%) 98 Oxygen Delivery Method Room Air Intake Visit Reasons: ED Follow up diverticulitis Allergies penicillin V Allergy (Unknown, Verified 04/10/23 13:09) N/V Penicillins [PENICILLINS] Allergy (Unknown, Verified 04/10/23 13:09) IN HISTORY AND DOESN'T REMEMBER carisoprodol [From [facility]] Adverse Reaction (Intermediate, Verified 04/10/23 13:09) VOMITED amoxicillin Allergy (Unknown, Uncoded 02/27/23 11:49) GI upset Medication List - Last Reconciled 04/10/23 by Lupillo Vázquez MD cefuroxime axetil 500 mg PO BID diltiazem HCl 240 mg PO DAILY hydrochlorothiazide 12.5 mg PO DAILY levofloxacin 750 mg PO DAILY losartan 50 mg PO DAILY potassium chloride 40 mEq (15 mL) PO ONCE 5 days simvastatin 10 mg PO BEDTIME Tobacco use date assessed: 04/10/23 Dental Screening Dental Screen Date: 04/10/23 Did you have a dental visit in the last 12 months?: No Did you have a dental problem in the last 6 months where you did not have access to dental care?: No Was dental information given to patient?: Patient has dentist HPI ED Follow up diverticulitis HPI Details Patient is a 63-year-old female came in today for hospital discharge follow-up from 03/28/2023 [facility] Patient continued to have recurrent diverticulitis she has already had 6 episodes in a very short interval of time Patient had CT scan which showed a mild diverticulitis in emergency room She was started on antibiotics She has already seen a customer program manager Dr. Leblanc at [facility] and was given more antibiotics and instructed to eat liquid diet only until pain subsides. I am looking her appointment with the dietitian so we can further assist patient in for choices. She was also recommended to see a surgeon she will address that through her customer program manager. She does have a family history of Crohn's disease in sister. Patient is also having lower back pain and having difficulty walking she is requesting a cane with prongs Script sent to [facility]. She also had hypokalemia in emergency room with potassium was 3.2 I have ordered labs to recheck that today. Blood pressure is 118/82 patient is taking diltiazem 240 mg, hydrochlorothiazide 12.5 mg, losartan 50 mg blood pressure control. She has her regular follow-up appointment end of next month [facility] Medical History Thoracic disc herniation Generalized arthritis Back pain Urinary urgency Incomplete emptying of bladder Abscess of breast, right COPD (chronic obstructive pulmonary disease) Deafness Hyperlipidemia Palpitations IBS (irritable bowel syndrome) Lipid disorder Hypertension, essential Surgical History History of surgery History of removal of cyst History of colonoscopy Family History Father Dementia Mother No problems noted. Other Mental health disorder Social History Housing: Apartment Alcohol intake: current Alcohol intake frequency: 0-2 drinks per day Patient Tobacco Use Status: Current everyday Tobacco user Tobacco use type: Cigarette Cigarettes Per Day: 10 e-Cigarette/Vaping Use: Never Used Substance Use Type: Marijuana Advance Directives Date on File: 09/13/22 Current occupational status: unemployed and retired Sexual orientation: Straight/Heterosexual Gender identity: Female Cognitive needs: No Hearing needs: Yes Vision needs: Yes Questionnaire Thrive Questionnaire Date Thrive assessed: 02/28/22 AUDIT C Alcohol Use Questionnaire (AUDIT-C) 1. How often do you have a drink containing alcohol?: Never 3. How often do you have six or more drinks on one occasion?: Never Total Score: 0 Score Reviewed/Action Taken: Yes MARK ANTHONY-7 AMB Questionnaire MARK ANTHONY-7 Date MARK ANTHONY - 7 assessed: 02/28/22 Source: Developed by Drs. Dejan Cruz, Louise Gomez, Leodan Harrison and colleagues, with an educational maria eugenia from [employer]. Review of Systems Const Denies chills and Denies fever(s) ENT Denies epistaxis and Denies nasal discharge Card Denies chest pain Resp Denies chest congestion, Denies cough and Denies hemoptysis GI Denies diarrhea and Denies nausea Skin/Breast Denies rash Neuro Reports no additional complaints Psych Reports no additional complaints Endo Reports no additional complaints Physical exam (Primary Care) Vital Signs: Last Vital Signs Pulse 65 04/10/23 13:08 BP 118/82 04/10/23 13:08 Pulse Ox 98 04/10/23 13:08 Oxygen Delivery Method Room Air 04/10/23 13:08 BMI result Body Mass Index 36.4 Tobacco/Smoking Status: Tobacco use Status Tobacco use date assessed 04/10/23 04/10/23 13:12 Patient Tobacco Use Status Current everyday Tobacco 04/10/23 13:03 Tobacco use type Cigarette 04/10/23 13:03 e-Cigarette/Vaping Use Never Used 04/10/23 13:03 Thrive Assessment: Date of Thrive Assessment Date Thrive assessed 02/28/22 04/10/23 13:03 Const General: cooperative, comfortable and no acute distress Orientation/consciousness: patient oriented x3 HENMT Head: Yes normocephalic Eyes General: appearance normal, both eyes and all related structures Neck Neck: Yes supple Resp Effort & Inspection: normal respiratory effort, no cough and no stridor Cardio Rhythm: regular rhythm Heart sounds: S1 normal heart sound present and S2 normal heart sound present GI Other: Abdomen is soft mild discomfort left lower quadrant bowel sounds positive no guarding no rebound Skin General skin exam: turgor normal Neuro General: patient oriented x3, tone normal and moves all extremities Extrem Right lower extremity: no edema Left lower extremity: no edema Assessment and Plan Assessment & Plan (1) Hypokalemia: Code(s): E87.6 - Hypokalemia (2) Lower back pain: Code(s): M54.50 - Low back pain, unspecified Qualifiers: Back pain laterality: bilateral Chronicity: acute Sciatica presence: without sciatica Qualified Code(s): M54.50 - Low back pain, unspecified (3) Gait instability: Code(s): R26.81 - Unsteadiness on feet (4) Hospital discharge follow-up: Code(s): Z09 - Encounter for follow-up examination after completed treatment for conditions other than malignant neoplasm (5) Acute diverticulitis: Code(s): K57.92 - Diverticulitis of intestine, part unspecified, without perforation or abscess without bleeding (6) Hearing impaired: Code(s): H91.90 - Unspecified hearing loss, unspecified ear Plan Patient is a 63-year-old female came in today for hospital discharge follow-up from 03/28/2023 [facility] Patient continued to have recurrent diverticulitis she has already had 6 episodes in a very short interval of time Patient had CT scan which showed a mild diverticulitis in emergency room She was started on antibiotics She has already seen a customer program manager Dr. Leblanc at [facility] and was given more antibiotics and instructed to eat liquid diet only until pain subsides. I am looking her appointment with the dietitian so we can further assist patient in for choices. She was also recommended to see a surgeon she will address that through her customer program manager. She does have a family history of Crohn's disease in sister. Patient is also having lower back pain and having difficulty walking she is requesting a cane with prongs Script sent to [facility]. She also had hypokalemia in emergency room with potassium was 3.2 I have ordered labs to recheck that today. Blood pressure is 118/82 patient is taking diltiazem 240 mg, hydrochlorothiazide 12.5 mg, losartan 50 mg blood pressure control. She has her regular follow-up appointment end of next month Orders: Orders Comprehensive Met. Panel Today E87.6 - Hypokalemia Medications: New [Cane with 4 prongs] As directed 1 ea 0RF M54.50 - Low back pain, unspecified, R26.81 - Unsteadiness on feet Coding Level of Care Code Est Pt Level 4 (93285) Diagnoses Hypokalemia E87.6 Acute bilateral low back pain without sciatica M54.50 Back pain laterality: bilateral Chronicity: acute Sciatica presence: without sciatica Gait instability R26.81 Hospital discharge follow-up Z09 Acute diverticulitis K57.92 Hearing impaired H91.90
[2023-04-10 13:08] VITALS: BP 118/82; PULSE 65; O2SAT 98; BMI 36.4
== END 2023-04-10 13:34 | disposition home or self-care (01) ==
PROVIDERS: PCP Internal Medicine; Visit Provider Internal Medicine
DX: E87.6 Hypokalemia (principal); M54.50 Low back pain, unspecified; R26.81 Unsteadiness on feet; Z09 Encounter for follow-up examination after completed treatment for conditions other than malignant neoplasm; K57.92 Diverticulitis of intestine, part unspecified, without perforation or abscess without bleeding; H91.90 Unspecified hearing loss, unspecified ear
CPT/HCPCS: 99214

== ENCOUNTER 2023-04-10 13:32 | Outpatient (REF) | payer MEDICARE, MEDICAID, SELFPAY ==
[2023-04-10 17:37] LABS: Alanine Aminotransferase 29 U/L (0-31); Albumin Level 4.4 g/dL (3.5-5.0); Alkaline Phosphatase 54 U/L (39-117); Anion Gap 18 (12-20); Aspartate Amino Transferase 34 U/L (5-31); Blood Urea Nitrogen 11 mg/dL (9-16); Calcium 10.3 mg/dL (8.4-10.2); Carbon Dioxide 31 mmol/L (22-29); Chloride 94 mmol/L (96-108); Estimated Glomerular Filt Rate > 60; Glucose Random 95 mg/dL (60-115); Potassium 3.3 mmol/L (3.3-5.1); Sodium 140 mmol/L (135-145); Total Protein 7.8 g/dL (6.5-8.0)
== END 2023-04-10 13:33 | disposition home or self-care (01) ==
LOC: HO.HMGCLDS 13:32
PROVIDERS: PCP Internal Medicine; Visit Provider Internal Medicine
DX: E87.6 Hypokalemia (principal)
CPT/HCPCS: 36415; 80053

== ENCOUNTER 2023-07-24 13:57 | Outpatient (AMB) | payer MEDICARE, MEDICAID, SELFPAY ==
--- NOTE | 2023-07-24 14:03 | MHC.PC.OV ---
Vital Signs 07/24/23 14:05 Height 5 ft 4 in Weight 206 lb 8 oz BMI 35.4 BP 138/72 Blood Pressure Location Lt brachial Position Sitting Pulse 75 Pulse Source Pulse Oximeter Pulse Oximetry (%) 98 Oxygen Delivery Method Room Air Intake Visit Reasons: 3 month follow up Allergies penicillin V Allergy (Unknown, Verified 07/24/23 14:09) N/V Penicillins [PENICILLINS] Allergy (Unknown, Verified 07/24/23 14:09) IN HISTORY AND DOESN'T REMEMBER carisoprodol [From [facility]] Adverse Reaction (Intermediate, Verified 07/24/23 14:09) VOMITED amoxicillin Allergy (Unknown, Uncoded 02/27/23 11:49) GI upset Tobacco use date assessed: 07/24/23 Dental Screening Dental Screen Date: 07/24/23 Did you have a dental visit in the last 12 months?: No Did you have a dental problem in the last 6 months where you did not have access to dental care?: No Was dental information given to patient?: No HPI 3 month follow up HPI Details Patient is a 63-year-old female who is hearing impaired came in today for a follow-up appointment Patient is able to read lips and is able to communicate Patient have a history of recurrent diverticulitis She has been evaluated by Gastroenterology She has modified her diet and is doing much better now Tells me that it does hurt off and on but not as bad as before. Due for labs to be done today Blood pressure is stable with diltiazem 240 mg once a day hydrochlorothiazide 12.5 mg once a day and losartan 50 mg once a day, patient is tolerating medications no side effects Lipids controlled with simvastatin 10 mg once a day, Nephropathy: Kidney functions are stable BMI is elevated patient need to lose weight Follow-up 3 months [facility] Medical History (Updated 07/24/23 @ 14:31 by Lupillo Vázquez MD) Thoracic disc herniation Generalized arthritis Back pain Urinary urgency Incomplete emptying of bladder Abscess of breast, right COPD (chronic obstructive pulmonary disease) Deafness Hyperlipidemia Palpitations IBS (irritable bowel syndrome) Lipid disorder Hypertension, essential Surgical History History of surgery History of removal of cyst History of colonoscopy Family History Father Dementia Mother No problems noted. Other Mental health disorder Social History Housing: Apartment Alcohol intake: current Alcohol intake frequency: 0-2 drinks per day Patient Tobacco Use Status: Current everyday Tobacco user Tobacco use type: Cigarette Cigarettes Per Day: 10 e-Cigarette/Vaping Use: Never Used Substance Use Type: Marijuana Advance Directives Date on File: 09/13/22 Current occupational status: unemployed and retired Sexual orientation: Straight/Heterosexual Gender identity: Female Cognitive needs: No Hearing needs: Yes Vision needs: Yes Questionnaire PHQ-9 Over the last 2 weeks, how often have you been bothered by any of the following problems? 1. Little interest or pleasure in doing things: not at all 2. Feeling down, depressed, or hopeless: not at all 3. Trouble falling or staying asleep, or sleeping too much: not at all 4. Feeling tired or having little energy: several days 5. Poor appetite or overeating: not at all 6. Feeling bad about yourself - or that you are a failure or have let yourself or your family down: not at all 7. Trouble concentrating on things, such as reading the newspaper or watching television: not at all 8. Moving or speaking so slowly that other people could have noticed. Or the opposite - being so fidgety or restless that you have been moving around a lot more than usual: not at all 9. Thoughts that you would be better off or of hurting yourself in some way: not at all Total score: 1 Depression Screening Interpretation: Negative Depression Screening Done: Yes 31836 - PHQ-9 Billing: Yes Source: Developed by Drs. Dejan Cruz, Louise Gomez, Leodan Harrison and colleagues, with an educational maria eugenia from [employer] ([place]). Thrive Questionnaire Date Thrive assessed: 02/28/22 AUDIT C Alcohol Use Questionnaire (AUDIT-C) 1. How often do you have a drink containing alcohol?: Never 3. How often do you have six or more drinks on one occasion?: Never Total Score: 0 Score Reviewed/Action Taken: Yes MARK ANTHONY-7 AMB Questionnaire MARK ANTHONY-7 Date MARK ANTHONY - 7 assessed: 02/28/22 Source: Developed by Drs. Dejan Cruz, Leodan Rajan Kroenke and colleagues, with an educational maria eugenia from [employer] ([place]). Review of Systems Const Denies chills and Denies fever(s) ENT Denies epistaxis and Denies nasal discharge Card Denies chest pain Resp Denies chest congestion, Denies cough and Denies hemoptysis GI Denies diarrhea and Denies nausea Skin/Breast Denies rash Neuro Reports no additional complaints Psych Reports no additional complaints Endo Reports no additional complaints Physical exam (Primary Care) Vital Signs: Last Vital Signs Pulse 75 07/24/23 14:05 BP 138/72 07/24/23 14:05 Pulse Ox 98 07/24/23 14:05 Oxygen Delivery Method Room Air 07/24/23 14:05 BMI result Body Mass Index 35.4 Tobacco/Smoking Status: Tobacco use Status Tobacco use date assessed 07/24/23 07/24/23 14:09 Patient Tobacco Use Status Current everyday Tobacco 07/24/23 14:09 Tobacco use type Cigarette 07/24/23 14:09 e-Cigarette/Vaping Use Never Used 07/24/23 14:09 Depression Screening Interpretation: Negative Thrive Assessment: Date of Thrive Assessment Date Thrive assessed 02/28/22 07/24/23 14:09 Const General: cooperative, comfortable and no acute distress Orientation/consciousness: patient oriented x3 HENMT Head: Yes normocephalic Eyes General: appearance normal, both eyes and all related structures Neck Neck: Yes supple Resp Effort & Inspection: normal respiratory effort, no cough and no stridor Cardio Rhythm: regular rhythm Heart sounds: S1 normal heart sound present and S2 normal heart sound present Skin General skin exam: turgor normal Neuro General: patient oriented x3, tone normal and moves all extremities Extrem Right lower extremity: no edema Left lower extremity: no edema Assessment and Plan Assessment & Plan (1) Hypertension, essential: Code(s): I10 - Essential (primary) hypertension (2) Lipid disorder: Code(s): E78.9 - Disorder of lipoprotein metabolism, unspecified (3) Obesity due to excess calories: Code(s): E66.09 - Other obesity due to excess calories Qualifiers: Body mass index: BMI 38.0-38.9 Obesity classification: adult class 2 (BMI 35 - 39.9) Serious obesity comorbidity presence: with serious comorbidity Qualified Code(s): E66.01 - Morbid (severe) obesity due to excess calories; Z68.38 - Body mass index [BMI] 38.0-38.9, adult (4) Hypertensive nephropathy: Code(s): I12.9 - Hypertensive chronic kidney disease with stage 1 through stage 4 chronic kidney disease, or unspecified chronic kidney disease (5) COPD (chronic obstructive pulmonary disease): Code(s): J44.9 - Chronic obstructive pulmonary disease, unspecified Qualifiers: COPD type: emphysema Emphysema type: panlobular Qualified Code(s): J43.1 - Panlobular emphysema Plan Patient is a 63-year-old female who is hearing impaired came in today for a follow-up appointment, history of smoking for years, history of COPD, however doing well without any inhalers Patient is able to read lips and is able to communicate Patient have a history of recurrent diverticulitis She has been evaluated by Gastroenterology She has modified her diet and is doing much better now Tells me that it does hurt off and on but not as bad as before. Due for labs to be done today Blood pressure is stable with diltiazem 240 mg once a day hydrochlorothiazide 12.5 mg once a day and losartan 50 mg once a day, patient is tolerating medications no side effects Lipids controlled with simvastatin 10 mg once a day, Nephropathy: Kidney functions are stable BMI is elevated patient need to lose weight Follow-up 3 months Orders: Orders Comprehensive Met. Panel Today E78.9 - Disorder of lipoprotein metabolism, unspecified, I10 - Essential (primary) hypertension Complete Blood Count Auto Diff Today E78.9 - Disorder of lipoprotein metabolism, unspecified, I10 - Essential (primary) hypertension TSH reflex Free T4 Today E78.9 - Disorder of lipoprotein metabolism, unspecified, I10 - Essential (primary) hypertension Coding Level of Care Code Est Pt Level 4 (20657) Diagnoses Hypertension, essential I10 Lipid disorder E78.9 Class 2 severe obesity due to excess calories with serious comorbidity and body mass index (BMI) of 38.0 to 38.9 in adult E66.01; Z68.38 Body mass index: BMI 38.0-38.9 Obesity classification: adult class 2 (BMI 35 - 39.9) Serious obesity comorbidity presence: with serious comorbidity Hypertensive nephropathy I12.9 Panlobular emphysema J43.1 COPD type: emphysema Emphysema type: panlobular
[2023-07-24 14:05] VITALS: BP 138/72; PULSE 75; O2SAT 98; BMI 35.4
== END 2023-07-24 15:10 | disposition home or self-care (01) ==
PROVIDERS: PCP Internal Medicine; Visit Provider Internal Medicine
DX: J43.1 Panlobular emphysema (principal); E66.01 Morbid (severe) obesity due to excess calories; Z68.38 Body mass index [BMI] 38.0-38.9, adult; I10 Essential (primary) hypertension; E78.9 Disorder of lipoprotein metabolism, unspecified; I12.9 Hypertensive chronic kidney disease with stage 1 through stage 4 chronic kidney disease, or unspecified chronic kidney disease
CPT/HCPCS: 99214

== ENCOUNTER 2023-07-24 14:29 | Outpatient (REF) | payer MEDICARE, MEDICAID, SELFPAY ==
[2023-07-24 16:16] LABS: MANUAL DIFF FLAG NO
[2023-07-24 16:32] LABS: Basophils Absolute Auto 0.1 X10*3/uL (0.0-0.2); Basophils Percent Auto 0.7 % (0-2); Eosinophils Absolute Auto 0.1 X10*3/uL (0.0-0.4); Eosinophils Percent Auto 0.8 % (0-4); Hematocrit 40.7 % (37.0-47.0); Hemoglobin 14.2 g/dl (12.0-16.0); Imm Gran Abs Auto 0.02 X10*3/uL (0.00-0.03); Imm Gran Pct Auto 0.2 % (0.0-0.4); Lymphocytes Absolute Auto 2.8 X10*3/uL (1.2-4.9); Lymphocytes Percent Auto 32.3 % (20-40); Mean Corpuscular HGB Conc 34.9 g/dl (31.0-35.0); Mean Corpuscular Hemoglobin 32.5 pg (27.0-33.0); Mean Corpuscular Volume 93.1 fL (80.0-98.0); Mean Platelet Volume 10.7 fL (9.4-12.3); Monocytes Absolute Auto 0.6 X10*3/uL (0.1-1.2); Monocytes Percent Auto 6.5 % (2-11); Neutrophils Absolute Auto 5.2 x10*3/uL (2.0-8.3); Neutrophils Percent Auto 59.5 % (45-73); Platelet Count 304 X10*3/uL (160-400); Red Blood Count 4.37 X10*6/uL (4.20-5.50); Red Cell Distribution Width 12.2 % (11.0-16.0); White Blood Count 8.7 X10*3/uL (4.8-10.8)
[2023-07-24 17:17] LABS: Alanine Aminotransferase 23 U/L (0-31); Albumin Level 4.2 g/dL (3.5-5.0); Alkaline Phosphatase 53 U/L (39-117); Anion Gap 13 (12-20); Aspartate Amino Transferase 22 U/L (5-31); Bilirubin Total 0.5 mg/dL (0.0-1.0); Blood Urea Nitrogen 18 mg/dL (9-16); Calcium 9.8 mg/dL (8.4-10.2); Carbon Dioxide 31 mmol/L (22-29); Chloride 103 mmol/L (96-108); Estimated Glomerular Filt Rate > 60; Glucose Random 90 mg/dL (60-115); Potassium 3.7 mmol/L (3.3-5.1); Sodium 143 mmol/L (135-145); Total Protein 7.2 g/dL (6.5-8.0)
== END 2023-07-24 14:30 | disposition home or self-care (01) ==
LOC: HO.HMGCLDS 14:29
PROVIDERS: PCP Internal Medicine; Visit Provider Internal Medicine
DX: I10 Essential (primary) hypertension (principal); E78.9 Disorder of lipoprotein metabolism, unspecified
CPT/HCPCS: 36415; 80053; 84443; 85025

== ENCOUNTER 2024-01-14 10:08 | Outpatient (AMB) | payer MEDICARE, MEDICAID, SELFPAY ==
--- NOTE | 2024-01-14 10:13 | MHC.PC.OV ---
Vital Signs 01/14/24 10:14 Height 5 ft 4 in Weight 199 lb BMI 34.2 BP 128/82 Blood Pressure Location Lt brachial Position Sitting Pulse 49 L Pulse Source Pulse Oximeter Pulse Oximetry (%) 97 Oxygen Delivery Method Room Air Intake Visit Reasons: Office visit Allergies penicillin V Allergy (Unknown, Verified 01/14/24 10:13) N/V Penicillins [PENICILLINS] Allergy (Unknown, Verified 01/14/24 10:13) IN HISTORY AND DOESN'T REMEMBER carisoprodol [From [facility]] Adverse Reaction (Intermediate, Verified 01/14/24 10:13) VOMITED amoxicillin Allergy (Unknown, Uncoded 01/14/24 10:13) GI upset Medication List - Last Reconciled 01/14/24 by Lupillo Vázquez MD blood pressure monitor As directed [Cane with 4 prongs As directed] diltiazem HCl CD 240 mg PO DAILY hydrochlorothiazide 12.5 mg PO DAILY losartan 50 mg PO DAILY potassium chloride 40 mEq (15 mL) PO ONCE 5 days simvastatin 10 mg PO BEDTIME Tobacco use date assessed: 01/14/24 Dental Screening Dental Screen Date: 07/24/23 HPI Office visit HPI Details Patient is a 63-year-old female who is hearing impaired came in today for a follow-up appointment, Missed her regular follow-up appointment, she tells me that she was on vacation and could not cancel history of smoking for years, history of COPD, continued to smoke, once again patient was advised to stop as soon as possible Due for labs to be done today Blood pressure is stable with diltiazem 240 mg once a day hydrochlorothiazide 12.5 mg once a day and losartan 50 mg once a day, patient is tolerating medications no side effects Lipids controlled with simvastatin 10 mg once a day, Nephropathy: Kidney functions are stable BMI is elevated patient need to lose weight She has appointment in March as a preop for cataract surgery [facility] Medical History Thoracic disc herniation Generalized arthritis Back pain Urinary urgency Incomplete emptying of bladder Abscess of breast, right COPD (chronic obstructive pulmonary disease) Deafness Hyperlipidemia Palpitations IBS (irritable bowel syndrome) Lipid disorder Hypertension, essential Surgical History History of surgery History of removal of cyst History of colonoscopy Family History Father Dementia Mother No problems noted. Other Mental health disorder Social History Housing: Apartment Alcohol intake: current Alcohol intake frequency: 0-2 drinks per day Patient Tobacco Use Status: Current everyday Tobacco user Tobacco use type: Cigarette Cigarettes Per Day: 10 e-Cigarette/Vaping Use: Never Used Substance Use Type: Marijuana Advance Directives Date on File: 09/13/22 Current occupational status: unemployed and retired Sexual orientation: Straight/Heterosexual Gender identity: Female Cognitive needs: No Hearing needs: Yes Vision needs: Yes Questionnaire Thrive Questionnaire Date Thrive assessed: 01/14/24 I am a: Patient MARK ANTHONY-7 AMB Questionnaire MARK ANTHONY-7 Date MARK ANTHONY - 7 assessed: 02/28/22 Source: Developed by Drs. Dejan Cruz, Louise Gomez, Leodan Harrison and colleagues, with an educational maria eugenia from [employer]. Review of Systems Const Denies chills and Denies fever(s) ENT Denies epistaxis and Denies nasal discharge Card Denies chest pain Resp Denies chest congestion, Denies cough and Denies hemoptysis GI Denies diarrhea and Denies nausea Skin/Breast Denies rash Neuro Reports no additional complaints Psych Reports no additional complaints Endo Reports no additional complaints Physical exam (Primary Care) Vital Signs: Last Vital Signs Pulse 49 L 01/14/24 10:14 BP 128/82 01/14/24 10:14 Pulse Ox 97 01/14/24 10:14 Oxygen Delivery Method Room Air 01/14/24 10:14 BMI result Body Mass Index 34.2 Tobacco/Smoking Status: Tobacco use Status Tobacco use date assessed 01/14/24 01/14/24 10:18 Patient Tobacco Use Status Current everyday Tobacco 01/14/24 10:18 Tobacco use type Cigarette 01/14/24 10:18 e-Cigarette/Vaping Use Never Used 01/14/24 10:18 Thrive Assessment: Date of Thrive Assessment Date Thrive assessed 01/14/24 01/14/24 10:18 Const General: cooperative, comfortable and no acute distress Orientation/consciousness: patient oriented x3 HENMT Head: Yes normocephalic Eyes General: appearance normal, both eyes and all related structures Neck Neck: Yes supple Resp Effort & Inspection: normal respiratory effort, no cough and no stridor Cardio Rhythm: regular rhythm Heart sounds: S1 normal heart sound present and S2 normal heart sound present Skin General skin exam: turgor normal Neuro General: patient oriented x3, tone normal and moves all extremities Extrem Right lower extremity: no edema Left lower extremity: no edema Assessment and Plan Assessment & Plan (1) Hypertension, essential: Code(s): I10 - Essential (primary) hypertension (2) Lipid disorder: Code(s): E78.9 - Disorder of lipoprotein metabolism, unspecified (3) Obesity due to excess calories: Code(s): E66.09 - Other obesity due to excess calories Qualifiers: Body mass index: BMI 38.0-38.9 Obesity classification: adult class 2 (BMI 35 - 39.9) Serious obesity comorbidity presence: with serious comorbidity Qualified Code(s): E66.01 - Morbid (severe) obesity due to excess calories; Z68.38 - Body mass index [BMI] 38.0-38.9, adult (4) Hypertensive nephropathy: Code(s): I12.9 - Hypertensive chronic kidney disease with stage 1 through stage 4 chronic kidney disease, or unspecified chronic kidney disease (5) COPD (chronic obstructive pulmonary disease): Code(s): J44.9 - Chronic obstructive pulmonary disease, unspecified Qualifiers: COPD type: emphysema Emphysema type: panlobular Qualified Code(s): J43.1 - Panlobular emphysema Plan Patient is a 63-year-old female who is hearing impaired came in today for a follow-up appointment, Missed her regular follow-up appointment, she tells me that she was on vacation and could not cancel history of smoking for years, history of COPD, continued to smoke, once again patient was advised to stop as soon as possible Due for labs to be done today Blood pressure is stable with diltiazem 240 mg once a day hydrochlorothiazide 12.5 mg once a day and losartan 50 mg once a day, patient is tolerating medications no side effects Lipids controlled with simvastatin 10 mg once a day, Nephropathy: Kidney functions are stable BMI is elevated patient need to lose weight She has appointment in March as a preop for cataract surgery Orders: Orders Complete Blood Count Auto Diff Today E66.01 - Morbid (severe) obesity due to excess calories, E78.9 - Disorder of lipoprotein metabolism, unspecified, I10 - Essential (primary) hypertension, Z68.38 - Body mass index [BMI] 38.0-38.9, adult LDL Cholesterol Direct Today E66.01 - Morbid (severe) obesity due to excess calories, E78.9 - Disorder of lipoprotein metabolism, unspecified, I10 - Essential (primary) hypertension, Z68.38 - Body mass index [BMI] 38.0-38.9, adult Comprehensive Met. Panel Today E66.01 - Morbid (severe) obesity due to excess calories, E78.9 - Disorder of lipoprotein metabolism, unspecified, I10 - Essential (primary) hypertension, Z68.38 - Body mass index [BMI] 38.0-38.9, adult Coding Level of Care Code Est Pt Level 4 (15015) Complex EM visit Add On G2211 Diagnoses Hypertension, essential I10 Lipid disorder E78.9 Class 2 severe obesity due to excess calories with serious comorbidity and body mass index (BMI) of 38.0 to 38.9 in adult E66.01; Z68.38 Body mass index: BMI 38.0-38.9 Obesity classification: adult class 2 (BMI 35 - 39.9) Serious obesity comorbidity presence: with serious comorbidity Hypertensive nephropathy I12.9 Panlobular emphysema J43.1 COPD type: emphysema Emphysema type: panlobular
[2024-01-14 10:14] VITALS: BP 128/82; PULSE 49; O2SAT 97; BMI 34.2
== END 2024-01-14 10:47 | disposition home or self-care (01) ==
PROVIDERS: PCP Internal Medicine; Visit Provider Internal Medicine
DX: I10 Essential (primary) hypertension (principal); E66.01 Morbid (severe) obesity due to excess calories; J43.1 Panlobular emphysema; Z68.38 Body mass index [BMI] 38.0-38.9, adult; E78.9 Disorder of lipoprotein metabolism, unspecified
CPT/HCPCS: 99214; G2211

== ENCOUNTER 2024-01-14 10:37 | Outpatient (REF) | payer MEDICARE, MEDICAID, SELFPAY ==
[2024-01-14 12:59] LABS: MANUAL DIFF FLAG NO
[2024-01-14 13:08] LABS: Basophils Percent Auto 0.4 % (0-2); Eosinophils Absolute Auto 0.1 X10*3/uL (0.0-0.4); Eosinophils Percent Auto 1.1 % (0-4); Hematocrit 44.7 % (37.0-47.0); Hemoglobin 15.2 g/dl (12.0-16.0); Imm Gran Abs Auto 0.02 X10*3/uL (0.00-0.03); Imm Gran Pct Auto 0.2 % (0.0-0.4); Lymphocytes Absolute Auto 2.8 X10*3/uL (1.2-4.9); Lymphocytes Percent Auto 31.1 % (20-40); Mean Corpuscular Hemoglobin 32.5 pg (27.0-33.0); Mean Corpuscular Volume 95.7 fL (80.0-98.0); Mean Platelet Volume 10.1 fL (9.4-12.3); Monocytes Absolute Auto 0.6 X10*3/uL (0.1-1.2); Monocytes Percent Auto 6.7 % (2-11); Neutrophils Absolute Auto 5.5 x10*3/uL (2.0-8.3); Neutrophils Percent Auto 60.5 % (45-73); Platelet Count 288 X10*3/uL (160-400); Red Blood Count 4.67 X10*6/uL (4.20-5.50); Red Cell Distribution Width 12.6 % (11.0-16.0); White Blood Count 9.1 X10*3/uL (4.8-10.8)
[2024-01-14 13:23] LABS: Alanine Aminotransferase 20 U/L (0-31); Albumin Level 4.4 g/dL (3.5-5.0); Alkaline Phosphatase 57 U/L (39-117); Anion Gap 14 (12-20); Aspartate Amino Transferase 25 U/L (5-31); Blood Urea Nitrogen 18 mg/dL (9-16); Calcium 10.2 mg/dL (8.4-10.2); Carbon Dioxide 36 mmol/L (22-29); Chloride 98 mmol/L (96-108); Estimated Glomerular Filt Rate 56; Glucose Random 87 mg/dL (60-115); Potassium 3.9 mmol/L (3.3-5.1); Sodium 144 mmol/L (135-145); Total Protein 7.3 g/dL (6.5-8.0)
[2024-01-17 06:09] LABS: LDL Cholesterol Direct 115 mg/dL (<100)
== END 2024-01-14 10:38 | disposition home or self-care (01) ==
LOC: HO.HMGCLDS 10:37
PROVIDERS: PCP Internal Medicine; Visit Provider Internal Medicine
DX: I10 Essential (primary) hypertension (principal); E78.9 Disorder of lipoprotein metabolism, unspecified; E66.01 Morbid (severe) obesity due to excess calories; Z68.38 Body mass index [BMI] 38.0-38.9, adult
CPT/HCPCS: 36415; 80053; 83721; 85025

== ENCOUNTER 2024-03-11 12:35 | Outpatient (AMB) | payer MEDICARE, MEDICAID, SELFPAY ==
[2024-03-11 12:38] VITALS: BP 120/70; PULSE 62; O2SAT 97; BMI 35.2
--- NOTE | 2024-03-11 12:38 | A.OFFPC_ITS ---
Vital Signs 03/11/24 12:38 Height 5 ft 4 in Weight 205 lb BMI 35.2 BP 120/70 Blood Pressure Location Rt brachial Position Sitting Pulse 62 Pulse Source Pulse Oximeter Pulse Oximetry (%) 97 Intake Visit Reasons: Cataract surgery Rt Eye 03/31/24 Allergies penicillin V Allergy (Unknown, Verified 03/11/24 12:41) N/V Penicillins [PENICILLINS] Allergy (Unknown, Verified 03/11/24 12:41) IN HISTORY AND DOESN'T REMEMBER carisoprodol [From [facility]] Adverse Reaction (Intermediate, Verified 03/11/24 12:41) VOMITED amoxicillin Allergy (Unknown, Uncoded 01/14/24 10:13) GI upset Medication List - Last Reconciled 03/11/24 by Lupillo Vázquez MD blood pressure monitor As directed [Cane with 4 prongs As directed] diltiazem HCl CD 240 mg PO DAILY hydrochlorothiazide 12.5 mg PO DAILY losartan 50 mg PO DAILY potassium chloride 40 mEq (15 mL) PO ONCE 5 days simvastatin 10 mg PO BEDTIME Tobacco use date assessed: 01/14/24 Fall risk assessment: No Falls in past year Last assessed Fall Risk: 03/11/24 Dental Screening Dental Screen Date: 07/24/23 HPI Cataract surgery Rt Eye 03/31/24 HPI Details Patient is 64-year-old female who is hearing impaired, history of hypertension but controlled Labs were done December of this year, reviewed Patient is going in for cataract surgery right eye March 31 by [facility] Patient offer no complaints There are no signs of infection She also sees Dr. Jennings neurology for headaches Patient is stable for cataract surgery [facility] Medical History Thoracic disc herniation Generalized arthritis Back pain Urinary urgency Incomplete emptying of bladder Abscess of breast, right COPD (chronic obstructive pulmonary disease) Deafness Hyperlipidemia Palpitations IBS (irritable bowel syndrome) Lipid disorder Hypertension, essential Surgical History History of surgery History of removal of cyst History of colonoscopy Family History Father Dementia Mother No problems noted. Other Mental health disorder Social History Housing: Apartment Alcohol intake: current Alcohol intake frequency: 0-2 drinks per day Patient Tobacco Use Status: Current everyday Tobacco user Tobacco use type: Cigarette Cigarettes Per Day: 10 e-Cigarette/Vaping Use: Never Used Substance Use Type: Marijuana Advance Directives Date on File: 09/13/22 Current occupational status: unemployed and retired Sexual orientation: Straight/Heterosexual Gender identity: Female Cognitive needs: No Hearing needs: Yes Vision needs: Yes Questionnaire Thrive Questionnaire Date Thrive assessed: 01/14/24 I am a: Patient MARK ANTHONY-7 AMB Questionnaire MARK ANTHONY-7 Date MARK ANTHONY - 7 assessed: 02/28/22 Source: Developed by Drs. Dejan Cruz, Louise Gomez, Leodan Harrison and colleagues, with an educational maria eugenia from [employer]. Review of Systems Const Denies chills and Denies fever(s) ENT Denies epistaxis and Denies nasal discharge Card Denies chest pain Resp Denies chest congestion, Denies cough and Denies hemoptysis GI Denies diarrhea and Denies nausea Skin/Breast Denies rash Neuro Reports no additional complaints Psych Reports no additional complaints Endo Reports no additional complaints Physical exam (Primary Care) Vital Signs: Last Vital Signs Pulse 62 03/11/24 12:38 BP 120/70 03/11/24 12:38 Pulse Ox 97 03/11/24 12:38 BMI result Body Mass Index 35.2 Tobacco/Smoking Status: Tobacco use Status Tobacco use date assessed 01/14/24 03/11/24 12:41 Patient Tobacco Use Status Current everyday Tobacco 03/11/24 12:41 Tobacco use type Cigarette 03/11/24 12:41 e-Cigarette/Vaping Use Never Used 03/11/24 12:41 Thrive Assessment: Date of Thrive Assessment Date Thrive assessed 01/14/24 03/11/24 12:41 Const General: cooperative, comfortable and no acute distress Orientation/consciousness: patient oriented x3 HENMT Head: Yes normocephalic Eyes General: appearance normal, both eyes and all related structures Neck Neck: Yes supple Resp Effort & Inspection: normal respiratory effort, no cough and no stridor Cardio Rhythm: regular rhythm Heart sounds: S1 normal heart sound present and S2 normal heart sound present Skin General skin exam: turgor normal Neuro General: patient oriented x3, tone normal and moves all extremities Extrem Right lower extremity: no edema Left lower extremity: no edema Assessment and Plan Assessment & Plan (1) Pre-op evaluation: Code(s): Z01.818 - Encounter for other preprocedural examination (2) Hypertension, essential: Code(s): I10 - Essential (primary) hypertension (3) Cataract: Code(s): H26.9 - Unspecified cataract Qualifiers: Cataract type: age-related Age-related cataract type: other Laterality: bilateral Qualified Code(s): H25.89 - Other age-related cataract (4) Hearing impaired: Code(s): H91.90 - Unspecified hearing loss, unspecified ear Qualifiers: Hearing loss type: unspecified Laterality: bilateral Qualified Code(s): H91.93 - Unspecified hearing loss, bilateral Plan Patient is 64-year-old female who is hearing impaired, history of hypertension but controlled Labs were done December of this year, reviewed Patient is going in for cataract surgery right eye March 31 by [facility] Patient offer no complaints There are no signs of infection She also sees Dr. Jennings neurology for headaches Patient is stable for cataract surgery Orders: Orders XR DEXA axial skeleton Today Z78.0 - Asymptomatic menopausal state Coding Level of Care Code Est Pt Level 4 (00924) Diagnoses Pre-op evaluation Z01.818 Hypertension, essential I10 Other age-related cataract of both eyes H25.89 Cataract type: age-related Age-related cataract type: other Laterality: bilateral Bilateral hearing loss, unspecified hearing loss type H91.93 Hearing loss type: unspecified Laterality: bilateral
== END 2024-03-11 12:52 | disposition home or self-care (01) ==
PROVIDERS: PCP Internal Medicine; Visit Provider Internal Medicine
DX: Z01.818 Encounter for other preprocedural examination (principal); I10 Essential (primary) hypertension; H25.89 Other age-related cataract; H91.93 Unspecified hearing loss, bilateral
CPT/HCPCS: 99214

== ENCOUNTER 2024-05-05 13:11 | Outpatient (AMB) | payer MEDICARE, MEDICAID, SELFPAY ==
--- NOTE | 2024-05-05 13:13 | A.OFFPC_ITS ---
Vital Signs 05/05/24 13:17 Height 5 ft 4 in Weight 209 lb 8 oz BMI 36.0 BP 130/62 Blood Pressure Location Rt brachial Position Sitting Pulse 64 Pulse Source Pulse Oximeter Pulse Oximetry (%) 97 Oxygen Delivery Method Room Air Intake Visit Reasons: Follow up -Discharged 04/21- [facility] Allergies penicillin V Allergy (Unknown, Verified 05/05/24 13:13) N/V Penicillins [PENICILLINS] Allergy (Unknown, Verified 05/05/24 13:13) IN HISTORY AND DOESN'T REMEMBER carisoprodol [From [facility]] Adverse Reaction (Intermediate, Verified 05/05/24 13:13) VOMITED amoxicillin Allergy (Unknown, Uncoded 01/14/24 10:13) GI upset Medication List - Last Reconciled 05/05/24 by Lupillo Vázquez MD blood pressure monitor As directed [Cane with 4 prongs As directed] diltiazem HCl CD 240 mg PO DAILY hydrochlorothiazide 12.5 mg PO DAILY losartan 50 mg PO DAILY potassium chloride 40 mEq (15 mL) PO ONCE 5 days simvastatin 10 mg PO BEDTIME Tobacco use date assessed: 05/05/24 Fall risk assessment: No Falls in past year Last assessed Fall Risk: 05/05/24 Dental Screening Dental Screen Date: 05/05/24 Did you have a dental visit in the last 12 months?: Yes Did you have a dental problem in the last 6 months where you did not have access to dental care?: No Was dental information given to patient?: Patient has dentist HPI Follow up -Discharged 04[facility]21[facility] HPI Details Patient is 64-year-old female came in today after emergency room visit on 04/21/2024 [facility]. She presented with a chief complaint of headache Patient has a history of hypertension She tried taking Tylenol at home which did not work She did not take any NSAIDs as she was told not to take that because of side effect of nephropathy Potassium was low she was given repletion Patient had cataract surgery March 31 Patient was prescribed prochlorperazine 10 mg tablet Along with potassium supplement And then discharged home as her headache improved Patient came in today for follow-up appointment We will be repeating potassium level again I have refilled prochlorperazine tablets for her that did help her with headaches Blood pressure is controlled She is taking all her medications [facility]LY [facility] Medical History Thoracic disc herniation Generalized arthritis Back pain Urinary urgency Incomplete emptying of bladder Abscess of breast, right COPD (chronic obstructive pulmonary disease) Deafness Hyperlipidemia Palpitations IBS (irritable bowel syndrome) Lipid disorder Hypertension, essential Surgical History History of surgery History of removal of cyst History of colonoscopy Family History Father Dementia Mother No problems noted. Other Mental health disorder Social History Housing: Apartment Alcohol intake: current Alcohol intake frequency: 0-2 drinks per day Patient Tobacco Use Status: Current everyday Tobacco user Tobacco use type: Cigarette Cigarettes Per Day: 10 e-Cigarette/Vaping Use: Never Used Substance Use Type: Marijuana Advance Directives Date on File: 09/13/22 service: No Current occupational status: unemployed and retired Sexual orientation: Straight/Heterosexual Gender identity: Female Cognitive needs: No Hearing needs: Yes Vision needs: Yes Questionnaire Thrive Questionnaire Date Thrive assessed: 01/14/24 I am a: Patient MARK ANTHONY-7 AMB Questionnaire MARK ANTHONY-7 Date MARK ANTHONY - 7 assessed: 02/28/22 Source: Developed by Drs. Dejan Cruz, Louise Gomez, Leodan Harrison and colleagues, with an educational maria eugenia from [employer]. Review of Systems Const Denies chills and Denies fever(s) ENT Denies epistaxis and Denies nasal discharge Card Denies chest pain Resp Denies chest congestion, Denies cough and Denies hemoptysis GI Denies diarrhea Skin/Breast Denies rash Neuro Reports no additional complaints Psych Reports no additional complaints Endo Reports no additional complaints Physical exam (Primary Care) Vital Signs: Last Vital Signs Pulse 64 05/05/24 13:17 BP 130/62 05/05/24 13:17 Pulse Ox 97 05/05/24 13:17 Oxygen Delivery Method Room Air 05/05/24 13:17 BMI result Body Mass Index 36.0 Tobacco/Smoking Status: Tobacco use Status Tobacco use date assessed 05/05/24 05/05/24 13:16 Patient Tobacco Use Status Current everyday Tobacco 05/05/24 13:16 Tobacco use type Cigarette 05/05/24 13:16 e-Cigarette/Vaping Use Never Used 05/05/24 13:16 Thrive Assessment: Date of Thrive Assessment Date Thrive assessed 01/14/24 05/05/24 13:16 Const General: cooperative, comfortable and no acute distress Orientation/consciousness: patient oriented x3 HENMT Head: Yes normocephalic Eyes General: appearance normal, both eyes and all related structures Neck Neck: Yes supple Resp Effort & Inspection: normal respiratory effort, no cough and no stridor Cardio Rhythm: regular rhythm Heart sounds: S1 normal heart sound present and S2 normal heart sound present Skin General skin exam: turgor normal Neuro General: patient oriented x3, tone normal and moves all extremities Extrem Right lower extremity: no edema Left lower extremity: no edema Coding Level of Care Code Est Pt Level 4 (36260) Diagnoses Hypokalemia E87.6 Headache syndrome G44.89 Hypertensive nephropathy I12.9 Hypertension, essential I10 Assessment & Plan Assessment & Plan (1) Hypokalemia: Code(s): E87.6 - Hypokalemia Category: Medical (2) Headache syndrome: Code(s): G44.89 - Other headache syndrome Category: Medical (3) Hypertensive nephropathy: Code(s): I12.9 - Hypertensive chronic kidney disease with stage 1 through stage 4 chronic kidney disease, or unspecified chronic kidney disease Category: Medical (4) Hypertension, essential: Code(s): I10 - Essential (primary) hypertension Category: Medical Plan Patient is 64-year-old female came in today after emergency room visit on 04/21/2024 [facility]. She presented with a chief complaint of headache Patient has a history of hypertension She tried taking Tylenol at home which did not work She did not take any NSAIDs as she was told not to take that because of side effect of nephropathy Potassium was low she was given repletion Patient had cataract surgery March 31 Patient was prescribed prochlorperazine 10 mg tablet Along with potassium supplement And then discharged home as her headache improved Patient came in today for follow-up appointment We will be repeating potassium level again I have refilled prochlorperazine tablets for her that did help her with headaches Blood pressure is controlled She is taking all her medications Orders: Orders Complete Blood Count Auto Diff Today E87.6 - Hypokalemia, G44.89 - Other headache syndrome, I10 - Essential (primary) hypertension, I12.9 - Hypertensive chronic kidney disease with stage 1 through stage 4 chronic kidney disease, or unspecified chronic kidney disease Comprehensive Met. Panel Today E87.6 - Hypokalemia, G44.89 - Other headache syndrome, I10 - Essential (primary) hypertension, I12.9 - Hypertensive chronic kidney disease with stage 1 through stage 4 chronic kidney disease, or unspecified chronic kidney disease Medications: New prochlorperazine maleate 10 mg PO BID PRN 20 tabs 0RF migraine headache 10 days
[2024-05-05 13:17] VITALS: BP 130/62; PULSE 64; O2SAT 97; BMI 36.0
== END 2024-05-05 13:48 | disposition home or self-care (01) ==
LOC: HO.HMCC 13:11
PROVIDERS: PCP Internal Medicine; Visit Provider Internal Medicine
DX: E87.6 Hypokalemia (principal); G44.89 Other headache syndrome; I12.9 Hypertensive chronic kidney disease with stage 1 through stage 4 chronic kidney disease, or unspecified chronic kidney disease; I10 Essential (primary) hypertension

== ENCOUNTER 2024-05-05 13:11 | Outpatient (REF) | payer MEDICARE, MEDICAID, SELFPAY ==
[2024-05-05 16:16] LABS: MANUAL DIFF FLAG NO
[2024-05-05 16:20] LABS: Basophils Absolute Auto 0.1 X10*3/uL (0.0-0.2); Basophils Percent Auto 0.7 % (0-2); Eosinophils Absolute Auto 0.1 X10*3/uL (0.0-0.4); Eosinophils Percent Auto 0.7 % (0-4); Hematocrit 41.1 % (37.0-47.0); Hemoglobin 13.9 g/dl (12.0-16.0); Imm Gran Abs Auto 0.04 X10*3/uL (0.00-0.03); Imm Gran Pct Auto 0.4 % (0.0-0.4); Lymphocytes Absolute Auto 3.1 X10*3/uL (1.2-4.9); Lymphocytes Percent Auto 30.4 % (20-40); Mean Corpuscular HGB Conc 33.8 g/dl (31.0-35.0); Mean Corpuscular Hemoglobin 31.7 pg (27.0-33.0); Mean Corpuscular Volume 93.8 fL (80.0-98.0); Mean Platelet Volume 10.3 fL (9.4-12.3); Monocytes Absolute Auto 0.7 X10*3/uL (0.1-1.2); Monocytes Percent Auto 7.2 % (2-11); Neutrophils Absolute Auto 6.1 x10*3/uL (2.0-8.3); Neutrophils Percent Auto 60.6 % (45-73); Platelet Count 312 X10*3/uL (160-400); Red Blood Count 4.38 X10*6/uL (4.20-5.50); Red Cell Distribution Width 11.9 % (11.0-16.0); White Blood Count 10.1 X10*3/uL (4.8-10.8)
[2024-05-05 16:36] LABS: Alanine Aminotransferase 20 U/L (0-31); Albumin Level 4.1 g/dL (3.5-5.0); Alkaline Phosphatase 59 U/L (39-117); Anion Gap 15 (12-20); Aspartate Amino Transferase 30 U/L (5-31); Bilirubin Total 0.8 mg/dL (0.0-1.0); Blood Urea Nitrogen 18 mg/dL (9-16); Calcium 9.8 mg/dL (8.4-10.2); Carbon Dioxide 30 mmol/L (22-29); Chloride 100 mmol/L (96-108); Estimated Glomerular Filt Rate 60; Glucose Random 92 mg/dL (60-115); Potassium 3.4 mmol/L (3.3-5.1); Sodium 142 mmol/L (135-145); Total Protein 6.8 g/dL (6.5-8.0)
== END 2024-05-05 13:12 | disposition home or self-care (01) ==
LOC: HO.HMGCLDS 13:11
PROVIDERS: PCP Internal Medicine; Visit Provider Internal Medicine
DX: E87.6 Hypokalemia (principal); G44.89 Other headache syndrome; I12.9 Hypertensive chronic kidney disease with stage 1 through stage 4 chronic kidney disease, or unspecified chronic kidney disease; N18.9 Chronic kidney disease, unspecified
CPT/HCPCS: 36415; 80053; 85025; 99212

== ENCOUNTER 2024-06-10 10:58 | Outpatient (AMB) | payer MEDICARE, MEDICAID, SELFPAY ==
[2024-06-10 10:59] VITALS: BP 126/64; PULSE 49; O2SAT 95; BMI 35.6
--- NOTE | 2024-06-10 10:59 | A.OFFVIS_ITS ---
Intake Vital Signs 06/10/24 10:59 Height 5 ft 4 in Weight 207 lb 6 oz BMI 35.6 BP 126/64 Blood Pressure Location Lt brachial Position Sitting Pulse 49 L Pulse Source Pulse Oximeter Pulse Oximetry (%) 95 Oxygen Delivery Method Room Air Intake Visit Reasons: SWV G0439 Allergies penicillin V Allergy (Unknown, Verified 06/10/24 10:59) N/V Penicillins [PENICILLINS] Allergy (Unknown, Verified 06/10/24 10:59) IN HISTORY AND DOESN'T REMEMBER carisoprodol [From [facility]] Adverse Reaction (Intermediate, Verified 06/10/24 10:59) VOMITED amoxicillin Allergy (Unknown, Uncoded 01/14/24 10:13) GI upset Medication List - Last Reconciled 06/10/24 by Lupillo Vázquez MD blood pressure monitor As directed [Cane with 4 prongs As directed] diltiazem HCl CD 240 mg PO DAILY hydrochlorothiazide 12.5 mg PO DAILY losartan 50 mg PO DAILY potassium chloride 40 mEq (15 mL) PO ONCE 5 days prochlorperazine maleate 10 mg PO BID PRN 10 days simvastatin 10 mg PO BEDTIME HPI SWV G0439 HPI Details Patient is 64-year-old female with a history of hypertension, hearing impaired, IBS, lipid disorder. Currently recovering from cold still have cough productive of green phlegm, but tells me that she is feeling much better compared to before There is no shortness a breath no chest pain She came in for her regular follow-up and Medicare wellness visit Labs were done January of this year reviewed with the patient Due for mammogram order placed She has not seen OBGYN since 2021, patient says that she will call in book her o wn appointment Colonoscopies up-to-date Patient is hearing impaired but still hold a driving license and has been driving since the age of 18 Her lungs are clear today She will return in 4 months labs are needed before visit BMI is elevated need to lose weight which has been difficult for the patient HPI Comments History of Present Illness Details AWV Medical/social history reviewed Past medical history reviewed Carson of care / care team list updated Surgical/ hospitalization history reviewed Current medications including OTC and supplements reviewed Family history reviewed Tobacco controlled form updated Alcohol use form updated Illicit drug use in social history reviewed Current diagnosis of depression ?screening updated Appropriate PHQ 2/PHQ-9 completed . Vital signs reviewed Alcohol tobacco drug use reviewed and discussed . MMSE completed . ? Fall risk: ?Assessed Fall history: ?None Have you had any falls with injury in the past year?? No Have you had 2 or more falls in the past year?? No Fall risk assessment completed Home safety discussed with the patient Functional ability assessed and discussed and documented Activities of daily living reviewed and appropriate actions taken . HRA filled out by the patient and reviewed by provider and scanned . Appropriate written screening schedule established . Any health advise needed provided . Advance care planning discussed with the patient she will take healthcare proxy paperwork along, MOLST forms filled Examination IPPE/AWE: Balance intact Romberg intact Tandem walk intact walk-in turn intact rise from sit to stand intact . ?Hearing ?Patient is hearing impaired . Medication list reviewed, patient is stable on medications All other providers patient is seeing discussed and noted . [facility] Medical History Thoracic disc herniation Generalized arthritis Back pain Urinary urgency Incomplete emptying of bladder Abscess of breast, right COPD (chronic obstructive pulmonary disease) Deafness Hyperlipidemia Palpitations IBS (irritable bowel syndrome) Lipid disorder Hypertension, essential Surgical History History of surgery History of removal of cyst History of colonoscopy Family History Father Dementia Mother No problems noted. Other Mental health disorder Social History Housing: Apartment Alcohol intake: current Alcohol intake frequency: 0-2 drinks per day Patient Tobacco Use Status: Current everyday Tobacco user Tobacco use type: Cigarette Cigarettes Per Day: 10 e-Cigarette/Vaping Use: Never Used Substance Use Type: Marijuana Advance Directives Date on File: 09/13/22 service: No Current occupational status: unemployed and retired Sexual orientation: Straight/Heterosexual Gender identity: Female Cognitive needs: No Hearing needs: Yes Vision needs: Yes Questionnaire Medicare Wellness Checkup [age] 65-69 What gender do you identify with?: female During the past 4 weeks, how much have you been bothered by emotional problems such as feeling anxious, depressed, irritable, sad or downhearted, and blue?: slightly During the past 4 weeks, has your physical & emotional health limited your social activities with family, friends, neighbors, or groups?: slightly During the past 4 weeks, how much bodily pain have you generally had?: mild pain During the past 4 weeks, was someone available to help you if you needed & wanted help?: no, not at all During the past 4 weeks, what was the hardest physical activity you could do for at least 2 minutes?: heavy Can you get to places out of walking distance without help? (For eg., can you travel alone on buses, taxis or drive your car?): Yes Can you go shopping for groceries or clothes without someone's help?: Yes Can you prepare your own meals?: Yes Can you do your housework without help?: Yes Because of any health problems, do you need the help of another person with your personal care needs such as eating, bathing, dressing or getting around the house?: No Can you handle your own money without help?: Yes During the past 4 weeks, how would you rate your health in general?: good During the past 4 weeks how have things been going for you?: good & bad parts about equal Are you having difficulties driving your car?: no Do you always fasten your seat belt when you are in a car?: yes, sometimes During past 4 weeks, have you been bothered by the following: never: Trouble eating well?, seldom: Falling or dizzy when standing up, Sexual problems?, Teeth or denture problems? and Problems using the telephone? and sometimes: Tiredness or fatigue? Have you fallen 2 or more times in the past year?: No Are you afraid of falling?: Yes Are you a smoker?: yes, but I'm not ready to quit During the past 4 weeks, how many drinks of wine, beer, or other alcoholic beverages did you have?: 2-5 drinks per week Do you exercise for about 20 minutes 3 or more times a week?: yes, some of the time Have you been given information to help with the following?: yes: Hazards in your house that might hurt you? and yes: Keeping track of your medications? How often do you have trouble taking medicines the way you have been told to take them?: I always take medicine as prescribed How confident are you that you can control & manage most of your health problems?: somewhat confident What is your race?: White Mini Mental State Exam (MMSE) Orientation What is the (year) (season) (date) (day) (month)?: year, season, date, day and month Where are we (state) (county) (town or city) (hospital) (floor)?: state, county, town or city, hospital/clinic and floor Score Score: 10 Activity of Daily Living Bathing - sponge bath, tub bath or shower: receives no assistance (gets in/out by self, if usual bathing means Dressing - getting clothes from closets & drawers, including inner/outer garments & fasteners.: gets clothes & gets completely dressed without help Toileting - going to the 'toilet room' for urine/bowel elimination & cleaning self/arranging clothes: goes to toilet room, cleans self, arranges clothes without help Transfer: moves in & out of bed and chair without help (may use support object) Continence: controls urination/bowel movements completely by self Feeding: feeds self without help Total Score: 0 Information obtained from: patient Using telephone: independent Traveling: independent Shopping: independent Preparing meals: independent Housework: independent Taking medicine: independent Managing money: independent PHQ-9 Over the last 2 weeks, how often have you been bothered by any of the following problems? 1. Little interest or pleasure in doing things: not at all 2. Feeling down, depressed, or hopeless: not at all 3. Trouble falling or staying asleep, or sleeping too much: not at all 4. Feeling tired or having little energy: several days 5. Poor appetite or overeating: not at all 6. Feeling bad about yourself - or that you are a failure or have let yourself or your family down: not at all 7. Trouble concentrating on things, such as reading the newspaper or watching television: not at all 8. Moving or speaking so slowly that other people could have noticed. Or the opposite - being so fidgety or restless that you have been moving around a lot more than usual: not at all 9. Thoughts that you would be better off or of hurting yourself in some way: not at all Total score: 1 Depression Screening Interpretation: Negative Depression Screening Done: Yes 36726 - PHQ-9 Billing: Yes Source: Developed by Drs. Dejan Cruz, Louise Gomez, Leodan Harrison and colleagues, with an educational maria eugenia from [employer]. Review of Systems Const Denies chills and Denies fever(s) ENT Denies epistaxis and Denies nasal discharge Card Denies chest pain Resp Denies hemoptysis GI Denies diarrhea and Denies nausea Skin/Breast Denies rash Neuro Reports no additional complaints Psych Reports no additional complaints Endo Reports no additional complaints Physical Exam Vital Signs: Last Vital Signs Pulse 49 L 06/10/24 10:59 BP 126/64 06/10/24 10:59 Pulse Ox 95 06/10/24 10:59 Oxygen Delivery Method Room Air 06/10/24 10:59 BMI result Body Mass Index 35.6 Const General: cooperative, comfortable and no acute distress Orientation/consciousness: patient oriented x3 HEENT Head: Yes normocephalic Eyes General: appearance normal, both eyes and all related structures Neck Other: Supple Neck: Yes supple Resp Effort & Inspection: normal respiratory effort, no cough and no stridor Cardio Rhythm: regular rhythm Heart sounds: S1 normal heart sound present and S2 normal heart sound present Skin General skin exam: turgor normal Neuro Other: Motor sensory intact General: patient oriented x3, tone normal and moves all extremities Extrem Other: No lower extremity swelling. Right lower extremity: no edema Left lower extremity: no edema Psych Other: Normal effect, speech clear Assessment & Plan Assessment & Plan (1) Medicare annual wellness visit, subsequent: Code(s): Z00.00 - Encounter for general adult medical examination without abnormal findings (2) Obesity due to excess calories: Code(s): E66.09 - Other obesity due to excess calories Qualifiers: Body mass index: BMI 38.0-38.9 Obesity classification: adult class 2 (BMI 35 - 39.9) Serious obesity comorbidity presence: with serious comorbidity Qualified Code(s): E66.01 - Morbid (severe) obesity due to excess calories; Z68.38 - Body mass index [BMI] 38.0-38.9, adult (3) Daytime somnolence: Code(s): R40.0 - Somnolence (4) Snoring: Code(s): R06.83 - Snoring (5) Tired: Code(s): R53.83 - Other fatigue (6) Hypertension, essential: Code(s): I10 - Essential (primary) hypertension (7) Lipid disorder: Code(s): E78.9 - Disorder of lipoprotein metabolism, unspecified (8) IBS (irritable bowel syndrome): Code(s): K58.9 - Irritable bowel syndrome, unspecified Qualifiers: Irritable bowel syndrome type: with both diarrhea and constipation Qualified Code(s): K58.2 - Mixed irritable bowel syndrome Plan Patient is 64-year-old female with a history of hypertension, hearing impaired, IBS, lipid disorder. Currently recovering from cold still have cough productive of green phlegm, but tells me that she is feeling much better compared to before There is no shortness a breath no chest pain She came in for her regular follow-up and Medicare wellness visit Labs were done January of this year reviewed with the patient Complaining of feeling tired all the time, patient does snore at night And has not sleep study, I have placed an order for that to further evaluate why she is feeling tired and sleepy during the day Due for mammogram order placed She has not seen OBGYN since 2021, patient says that she will call in book her own appointment Colonoscopies up-to-date Patient is hearing impaired but still hold a driving license and has been driv ing since the age of 18 Her lungs are clear today She will return in 4 months labs are needed before visit BMI is elevated need to lose weight which has been difficult for the patient Orders: Orders RT home sleep study Today E66.01 - Morbid (severe) obesity due to excess calories, R06.83 - Snoring, R40.0 - Somnolence, R53.83 - Other fatigue, Z68.38 - Body mass index [BMI] 38.0-38.9, adult LDL Cholesterol Direct 3 Months E66.01 - Morbid (severe) obesity due to excess calories, E78.9 - Disorder of lipoprotein metabolism, unspecified, I10 - Essential (primary) hypertension, K58.2 - Mixed irritable bowel syndrome, R06.83 - Snoring, R40.0 - Somnolence, R53.83 - Other fatigue, Z68.38 - Body mass index [BMI] 38.0-38.9, adult MM tomosynthesis screening BI Today Z12.31 - Encounter for screening mammogram for malignant neoplasm of breast Complete Blood Count Auto Diff 3 Months E66.01 - Morbid (severe) obesity due to excess calories, E78.9 - Disorder of lipoprotein metabolism, unspecified, I10 - Essential (primary) hypertension, K58.2 - Mixed irritable bowel syndrome, R06.83 - Snoring, R40.0 - Somnolence, R53.83 - Other fatigue, Z68.38 - Body mass index [BMI] 38.0-38.9, adult Comprehensive Met. Panel 3 Months E66.01 - Morbid (severe) obesity due to excess calories, E78.9 - Disorder of lipoprotein metabolism, unspecified, I10 - Essential (primary) hypertension, K58.2 - Mixed irritable bowel syndrome, R06.83 - Snoring, R40.0 - Somnolence, R53.83 - Other fatigue, Z68.38 - Body mass index [BMI] 38.0-38.9, adult Quality Reporting (2020) Depression/Bipolar (159/160/161/177) PHQ-9: Total score: 1 Coding Level of Care Code Medicare Subsequent (G0439) Est Pt Level 4 (61030) Diagnoses Medicare annual wellness visit, subsequent Z00.00 Class 2 severe obesity due to excess calories with serious comorbidity and body mass index (BMI) of 38.0 to 38.9 in adult E66.01; Z68.38 Body mass index: BMI 38.0-38.9 Obesity classification: adult class 2 (BMI 35 - 39.9) Serious obesity comorbidity presence: with serious comorbidity Daytime somnolence R40.0 Snoring R06.83 Tired R53.83 Hypertension, essential I10 Lipid disorder E78.9 Irritable bowel syndrome with both constipation and diarrhea K58.2 Irritable bowel syndrome type: with both diarrhea and constipation CPT Codes Advance Care Planning - Advance Care Planning discussion: On file, no changes ([id number]) Additional Codes PHQ-9 - 03670 - PHQ-9 Billing: Yes ([id number]) Advance Care Planning Advance Care Planning discussion: On file, no changes Forms completed: BRANDON
== END 2024-06-10 11:28 | disposition home or self-care (01) ==
PROVIDERS: PCP Internal Medicine; Visit Provider Internal Medicine
DX: Z00.00 Encounter for general adult medical examination without abnormal findings (principal); R40.0 Somnolence; E66.01 Morbid (severe) obesity due to excess calories; Z68.38 Body mass index [BMI] 38.0-38.9, adult; R06.83 Snoring; R53.83 Other fatigue; I10 Essential (primary) hypertension; E78.9 Disorder of lipoprotein metabolism, unspecified; K58.2 Mixed irritable bowel syndrome

== ENCOUNTER → 2024-06-10 10:58 | Outpatient (BNVA) | payer MEDICARE, MEDICAID, SELFPAY | PROVIDERS: PCP Internal Medicine; Visit Provider Internal Medicine | DX: Z00.00 Encounter for general adult medical examination without abnormal findings (principal); E66.01 Morbid (severe) obesity due to excess calories; Z68.38 Body mass index [BMI] 38.0-38.9, adult; R40.0 Somnolence; R06.83 Snoring; R53.83 Other fatigue; I10 Essential (primary) hypertension; E78.9 Disorder of lipoprotein metabolism, unspecified; K58.2 Mixed irritable bowel syndrome; Z71.3 Dietary counseling and surveillance | CPT/HCPCS: 96127; 99212 ==

== ENCOUNTER 2024-07-29 11:21 | Outpatient (REF) | payer MEDICARE, MEDICAID, SELFPAY | END 2024-07-29 11:22 | disposition home or self-care (01) | LOC: HO.MAMMO 11:21 | PROVIDERS: PCP Internal Medicine; Visit Provider Internal Medicine | DX: Z12.31 Encounter for screening mammogram for malignant neoplasm of breast (principal) | CPT/HCPCS: 77063; 77067 ==

== ENCOUNTER → 2024-07-29 11:30 | Outpatient (BNV) | payer MEDICARE, MEDICAID, SELFPAY | PROVIDERS: PCP Internal Medicine; Visit Provider Internal Medicine | DX: Z12.31 Encounter for screening mammogram for malignant neoplasm of breast (principal) | CPT/HCPCS: 77063; 77067 ==

== ENCOUNTER → 2024-10-05 10:38 | Outpatient (REF) | payer MEDICARE, MEDICAID, SELFPAY ==
--- OUTSIDE RECORDS SUMMARY | 2024-10-05 12:34 | XMS_ITS | Clinical Summary ---
Author Organization [facility] it Address [address] [place] [phone] Care Team Providers Care Felt Pad Cutter Name Role Phone Unavailable Primary Care Provider Unavailabl e Social History Tobacco Use Types Packs/Day Years Used Date Smoking Tobacco: Never Assessed Comments Unknown Sex and Gender Information Value Date Recorded Sex Assigned at Not on file Legal Sex Female 9:47 PM EST Gender Identity Not on file Sexual Orientation Not on file Plan of Treatment Upcoming Encounters Date Type Department Care Team (Late st Contact Info) Description 11/02/2024 2:40 PM EDT Consult [facility] [address] [place] [address] Richard Osullivan MD [address] [facility] [address] [place] [address] Health Maintenance Due Date Last Done Comments Breast Cancer Screening 1960 Cervical Cancer Screening: P ap Smear 02/06/1981 Pneumococcal Vaccine: 50+ Ye ars (1 of 1 - PCV) 02/06/2010 Zoster Vaccines (1 of 2) 02/06/2010 DTaP,Tdap,and Td Vaccines (2 - Td or Tdap) 12/26/2017 12/27/2007 Colorectal Cancer Screening: Colonoscopy 06/02/2022 Depression Screening 06/02/2022 HIV Screening 06/02/2022 Hepatitis C Screening 06/02/2022 Social Influencers of Health Screening 06/02/2022 COVID-19 Vaccine (1 - 2023-2 5 season) 2024 Influenza Vaccine (Season Ended) 2025 RSV Immunization Adult Patie nts (1 - 1-dose 75+ series) 02/06/2035 HIB Vaccines Aged Out No longer eligi ble based on patient's age to complete this topic HPV Vaccines Aged Out No longer eligi ble based on patient's age to complete this topic Hepatitis A Vaccines Aged Out No long er eligible based on patient's age to complete this topic Hepatitis B Vaccines Aged Out No long er eligible based on patient's age to complete this topic IPV Vaccines Aged Out No longer eligi ble based on patient's age to complete this topic MMR Vaccines Aged Out No longer eligi ble based on patient's age to complete this topic Meningococcal ACWY Vaccine Aged Out N o longer eligible based on patient's age to complete this topic Meningococcal B Vacine Aged Out No lo nger eligible based on patient's age to complete this topic Pneumococcal Vaccine: Pediat rics (0 to 5 Years) and At-Risk Patients (6 to 64 Years) Aged Out No longer eligi ble based on patient's age to complete this topic RSV Immunization Patients Un alex 20 months Aged Out No longer eligible b ased on patient's age to complete this topic Varicella Vaccines Aged Out No longer eligible based on patient's age to complete this topic Insurance MEDICARE MEDICAID - [place]
== END ==
LOC: HO.SL 10:38
PROVIDERS: PCP Internal Medicine; Visit Provider Internal Medicine
DX: G47.10 Hypersomnia, unspecified (principal); R40.0 Somnolence; E66.01 Morbid (severe) obesity due to excess calories; Z68.38 Body mass index [BMI] 38.0-38.9, adult; R06.83 Snoring; R53.83 Other fatigue
CPT/HCPCS: 95806

== ENCOUNTER → 2024-10-05 11:00 | Outpatient (BNV) | payer MEDICARE, MEDICAID, SELFPAY | PROVIDERS: PCP Internal Medicine; Visit Provider Internal Medicine | DX: G47.33 Obstructive sleep apnea (adult) (pediatric) (principal) | CPT/HCPCS: 95806 ==

== ENCOUNTER 2024-10-13 08:56 | Outpatient (REF) | payer MEDICARE, MEDICAID, SELFPAY ==
--- OUTSIDE RECORDS SUMMARY | 2024-10-13 10:20 | XMS_ITS | Clinical Summary ---
Author Organization [facility] Address [address] [place] [phone] Care Team Providers Care Government Affairs Fellow Name Role Phone Unavailable Primary Care Provider [...] Info) Description 11/02/2024 2:40 PM EDT Consult [facility] [address] [place] [address] Richard Osullivan MD [address] [place] [address] Health Maintenance Due Date Last [...]
[2024-10-13 13:27] LABS: MANUAL DIFF FLAG NO
[2024-10-13 13:41] LABS: Basophils Absolute Auto 0.1 X10*3/uL (0.0-0.2); Basophils Percent Auto 0.6 % (0-2); Eosinophils Absolute Auto 0.1 X10*3/uL (0.0-0.4); Eosinophils Percent Auto 0.8 % (0-4); Hematocrit 42.7 % (37.0-47.0); Hemoglobin 14.8 g/dl (12.0-16.0); Imm Gran Abs Auto 0.02 X10*3/uL (0.00-0.03); Imm Gran Pct Auto 0.2 % (0.0-0.4); Lymphocytes Absolute Auto 2.4 X10*3/uL (1.2-4.9); Lymphocytes Percent Auto 27.5 % (20-40); Mean Corpuscular HGB Conc 34.7 g/dl (31.0-35.0); Mean Corpuscular Hemoglobin 31.8 pg (27.0-33.0); Mean Corpuscular Volume 91.6 fL (80.0-98.0); Mean Platelet Volume 10.1 fL (9.4-12.3); Monocytes Absolute Auto 0.6 X10*3/uL (0.1-1.2); Monocytes Percent Auto 6.9 % (2-11); Neutrophils Absolute Auto 5.5 x10*3/uL (2.0-8.3); Platelet Count 316 X10*3/uL (160-400); Red Blood Count 4.66 X10*6/uL (4.20-5.50); Red Cell Distribution Width 12.1 % (11.0-16.0); White Blood Count 8.7 X10*3/uL (4.8-10.8)
[2024-10-13 14:05] LABS: Alanine Aminotransferase 22 U/L (0-31); Albumin Level 4.2 g/dL (3.5-5.0); Anion Gap 11 (12-20); Aspartate Amino Transferase 29 U/L (5-31); Bilirubin Total 0.9 mg/dL (0.0-1.0); Blood Urea Nitrogen 20 mg/dL (9-16); Calcium 9.7 mg/dL (8.4-10.2); Carbon Dioxide 33 mmol/L (22-29); Chloride 101 mmol/L (96-108); Estimated Glomerular Filt Rate > 60; Glucose Random 94 mg/dL (60-115); Potassium 3.3 mmol/L (3.3-5.1); Sodium 142 mmol/L (135-145); Total Protein 7.1 g/dL (6.5-8.0)
[2024-10-13 17:22] LABS: Alkaline Phosphatase 58 U/L (39-117)
[2024-10-14 07:59] LABS: LDL Cholesterol Direct 105 mg/dL (<100)
== END 2024-10-13 08:57 | disposition home or self-care (01) ==
LOC: HO.HMGCLDS 08:56
PROVIDERS: PCP Internal Medicine; Visit Provider Internal Medicine
DX: G47.30 Sleep apnea, unspecified (principal); E78.9 Disorder of lipoprotein metabolism, unspecified; R00.2 Palpitations; I12.9 Hypertensive chronic kidney disease with stage 1 through stage 4 chronic kidney disease, or unspecified chronic kidney disease; N18.9 Chronic kidney disease, unspecified; G44.89 Other headache syndrome; H91.93 Unspecified hearing loss, bilateral; E66.01 Morbid (severe) obesity due to excess calories; Z68.38 Body mass index [BMI] 38.0-38.9, adult; K58.2 Mixed irritable bowel syndrome; R53.83 Other fatigue; R06.83 Snoring; R40.0 Somnolence
CPT/HCPCS: 36415; 80053; 83721; 85025; 99212

== ENCOUNTER 2024-10-13 08:56 | Outpatient (AMB) | payer MEDICARE, MEDICAID, SELFPAY ==
--- NOTE | 2024-10-13 09:06 | A.OFFPC_ITS ---
Vital Signs 10/13/24 09:07 Height 5 ft 4 in Weight 215 lb BMI 36.9 BP 132/76 Blood Pressure Location Rt brachial Position Sitting Pulse 62 Pulse Source Pulse Oximeter Pulse Oximetry (%) 96 Oxygen Delivery Method Room Air Intake Visit Reasons: 4 months follow up Allergies penicillin V Allergy (Unknown, Verified 10/13/24 09:10) N/V Penicillins [PENICILLINS] Allergy (Unknown, Verified 10/13/24 09:10) IN HISTORY AND DOESN'T REMEMBER carisoprodol [From [facility]] Adverse Reaction (Intermediate, Verified 10/13/24 09:10) VOMITED amoxicillin Allergy (Unknown, Uncoded 10/13/24 09:10) GI upset Medication List - Last Reconciled 10/13/24 by Lupillo Vázquez MD blood pressure monitor As directed [Cane with 4 prongs As directed] diltiazem HCl CD 240 mg PO DAILY hydrochlorothiazide 12.5 mg PO DAILY losartan 50 mg PO DAILY potassium chloride 40 mEq (15 mL) PO ONCE 5 days prochlorperazine maleate 10 mg PO BID PRN 10 days simvastatin 10 mg PO BEDTIME Tobacco use date assessed: 10/13/24 Fall risk assessment: No Falls in past year Last assessed Fall Risk: 10/13/24 Dental Screening Dental Screen Date: 10/13/24 Did you have a dental visit in the last 12 months?: No Did you have a dental problem in the last 6 months where you did not have access to dental care?: No Was dental information given to patient?: Patient declined HPI 4 months follow up HPI Details History - The patient is a 64-year-old female pr esenting for regular follow-up appointment - The patient experienced palpitations a pproximately a month ago, which lasted for about two weeks and then resolved. - She denied coffee intake and instead c onsumes tea regularly. - Family history is notable for sleep ap molina, with both her father and brother affected. - The patient has a known diagnosis of s leep apnea and has completed part of a sleep study; she is awaiting the second part, to be conducted in a hospital setting. - The patient continues to smoke approxi mately one pack of cigarettes a week, with a history of smoking one to two packs. - She has indicated that she intends to have a blood test in six months, with the last one being in May. Patient has a history of hypertension, taking all her medications blood pressure stable BMI is elevated patient is having difficulty losing weight Problem List - Palpitations - Sleep Apnea - Tobacco Use Disorder -hypertension - obesity - hearing impaired - migraine headaches - disorder Patient Instructions - Proceed with the ordered blood test sc heduled within six months. - Await contact for scheduling the secon d part of the sleep study, which will be conducted in a hospital. - Continue efforts to reduce smoking or seek guidance on cessation. - Return for follow-up in January or soon er if symptoms reoccur or worsen. - Report for lab tests at specified loca tions as instructed. - continue medications for blood pressur e and cholesterol Review of Systems - General: No fever no chills - Neurological: no dizziness - Ear nose throat: No sore throat no hearing difficulty no ear pain - Cardiovascular: No syncope, no chest pain, no palpitations - Gastrointestinal: No nausea vomiting or diarrhea - Endocrine: No polyuria polydipsia no heat intolerance - Genitourinary: No dysuria , no blood in urine Physical Exam General: No acute distress HEENT: No acute findings Neck: Supple Respiratory system: Able to talk in full sentences, no audible wheeze Cardiovascular: S1-S2 regular in rate and rhythm Gastrointestinal: No pain Extremities: No new findings FLATWORK FOLDER: Alert awake oriented x3 motor sensory intact Skin: Normal turgor PFSH Medical History Thoracic disc herniation Generalized arthritis Back pain Urinary urgency Incomplete emptying of bladder Abscess of breast, right COPD (chronic obstructive pulmonary disease) Deafness Hyperlipidemia Palpitations IBS (irritable bowel syndrome) Lipid disorder Hypertension, essential Surgical History History of surgery History of removal of cyst History of colonoscopy Family History Father Dementia Mother No problems noted. Other Mental health disorder Social History Housing: Apartment Alcohol intake: current Alcohol intake frequency: 0-2 drinks per day Patient Tobacco Use Status: Current everyday Tobacco user Tobacco use type: Cigarette Cigarettes Per Day: 10 e-Cigarette/Vaping Use: Never Used Substance Use Type: Marijuana Advance Directives Date on File: 09/13/22 service: No Current occupational status: unemployed and retired Sexual orientation: Straight/Heterosexual Gender identity: Female Cognitive needs: No Hearing needs: Yes Vision needs: Yes Questionnaire PHQ-9 Over the last 2 weeks, how often have you been bothered by any of the following problems? 51837 - PHQ-9 Billing: Patient declined-do not bill Source: Developed by Drs. Dejan Cruz, Louise Gomez, Leodan Harrison and colleagues, with an educational maria eugenia from [employer]. Thrive Questionnaire Date Thrive assessed: 10/13/24 I am a: Patient What is your living situation today?: I have a steady place to live Within the past 12 months, did the food you bought not last and you didn't have the money to get more?: Never true Within the past 12 months, did you worry whether your food would run out before you got money to buy more?: Never true Do you have trouble paying for medicines?: No Do you have trouble getting transportation to medical appointments?: No Do you have trouble paying your heating and electricity bill?: No Do you have trouble taking care of your child, family member or friend?: No Do you have trouble with day-to-day activities such as bathing, preparing meals, shopping, managing finances, etc.?: No Are you currently unemployed and looking for a job?: No Are you interested in more education?: No Please select the resources that you would like help with: None Currently or been in a relationship where the following occur: No concerns reported THRIVE Score: 0 AUDIT C Alcohol Use Questionnaire (AUDIT-C) 1. How often do you have a drink containing alcohol?: Never 3. How often do you have six or more drinks on one occasion?: Never Total Score: 0 Score Reviewed/Action Taken: Yes MARK ANTHONY-7 AMB Questionnaire MARK ANTHONY-7 Date MARK ANTHONY - 7 assessed: 10/13/24 Source: Developed by Drs. Dejan Cruz, Louise Gomez, Leodan Harrison and colleagues, with an educational maria eugenia from [employer]. Physical exam (Primary Care) Vital Signs: Last Vital Signs Pulse 62 10/13/24 09:07 BP 132/76 10/13/24 09:07 Pulse Ox 96 10/13/24 09:07 Oxygen Delivery Method Room Air 10/13/24 09:07 BMI result Body Mass Index 36.9 Tobacco/Smoking Status: Tobacco use Status Tobacco use date assessed 10/13/24 10/13/24 09:10 Patient Tobacco Use Status Current everyday Tobacco 10/13/24 09:07 Tobacco use type Cigarette 10/13/24 09:07 e-Cigarette/Vaping Use Never Used 10/13/24 09:07 Thrive Assessment: Date of Thrive Assessment Date Thrive assessed 10/13/24 10/13/24 09:10 Currently or been in a relationship where the following occur: No concerns reported Coding Level of Care Code Est Pt Level 4 (81878) Complex EM visit Add On G2211 Diagnoses Hypertension, essential I10 Sleep apnea in adult G47.30 Lipid disorder E78.9 Palpitations R00.2 Hypertensive nephropathy I12.9 Headache syndrome G44.89 Bilateral hearing loss, unspecified hearing loss type H91.93 Hearing loss type: unspecified Laterality: bilateral Class 2 severe obesity due to excess calories with serious comorbidity and body mass index (BMI) of 38.0 to 38.9 in adult E66.01; Z68.38 Obesity classification: adult class 2 (BMI 35 - 39.9) Serious obesity comorbidity presence: with serious comorbidity Body mass index: BMI 38.0-38.9 Irritable bowel syndrome with both constipation and diarrhea K58.2 Irritable bowel syndrome type: with both diarrhea and constipation Assessment & Plan Assessment & Plan (1) Hypertension, essential: Code(s): I10 - Essential (primary) hypertension Category: Medical (2) Sleep apnea in adult: Code(s): G47.30 - Sleep apnea, unspecified Category: Medical (3) Lipid disorder: Code(s): E78.9 - Disorder of lipoprotein metabolism, unspecified Category: Medical (4) Palpitations: Code(s): R00.2 - Palpitations Category: Medical (5) Hypertensive nephropathy: Code(s): I12.9 - Hypertensive chronic kidney disease with stage 1 through stage 4 chronic kidney disease, or unspecified chronic kidney disease Category: Medical (6) Headache syndrome: Code(s): G44.89 - Other headache syndrome Category: Medical (7) Hearing impaired: Code(s): H91.90 - Unspecified hearing loss, unspecified ear Category: Medical Qualifiers: Hearing loss type: unspecified Laterality: bilateral Qualified Code(s) : H91.93 - Unspecified hearing loss, bilateral (8) Obesity due to excess calories: Code(s): E66.09 - Other obesity due to excess calories Category: Medical Qualifiers: Obesity classification: adult class 2 (BMI 35 - 39.9) Serious obesity comorbidity presence: with serious comorbidity Body mass index: BMI 38.0-38.9 Qualified Code(s): E66.01 - Morbid (severe) obesity due to excess calories; Z68.38 - Body mass index [BMI] 38.0-38.9, adult (9) IBS (irritable bowel syndrome): Code(s): K58.9 - Irritable bowel syndrome, unspecified Category: Medical Qualifiers: Irritable bowel syndrome type: with both diarrhea and constipation Qualified Code(s): K58.2 - Mixed irritable bowel syndrome Plan History - The patient is a 64-year-old female presenting for regular follow-up appointment - The patient experienced palpitations approximately a month ago, which lasted for about two weeks and then resolved. - She denied coffee intake and instead consumes tea regularly. - Family history is notable for sleep apnea, with both her father and brother affected. - The patient has a known diagnosis of sleep apnea and has completed part of a sleep study; she is awaiting the second part, to be conducted in a hospital setting. - The patient continues to smoke approximately one pack of cigarettes a week, with a history of smoking one to two packs. - She has indicated that she intends to have a blood test in six months, with the last one being in May. Patient has a history of hypertension, taking all her medications blood pressure stable BMI is elevated patient is having difficulty losing weight Problem List - Palpitations - Sleep Apnea - Tobacco Use Disorder -hypertension - obesity - hearing impaired - migraine headaches - disorder Patient Instructions - Proceed with the ordered blood test scheduled within six months. - Await contact for scheduling the second part of the sleep study, which will be conducted in a hospital. - Continue efforts to reduce smoking or seek guidance on cessation. - Return for follow-up in January or sooner if symptoms reoccur or worsen. - Report for lab tests at specified locations as instructed. - continue medications for blood pressure and cholesterol Orders: Orders RT PSG in-lab sleep titration Today G47.30 - Sleep apnea, unspecified
[2024-10-13 09:07] VITALS: BP 132/76; PULSE 62; O2SAT 96; BMI 36.9
--- OUTSIDE RECORDS SUMMARY | 2024-10-13 09:31 | XMS_ITS | Clinical Summary ---
Author Organization [facility] [[email or web address]] Address [address] [place] [id number] Care Team Providers Care Telex Operator Name Role Phone Unavailable Primary Care Provider [...] Info) Description 11/02/2024 2:40 PM EDT Consult [facility] [address] [place] [address] Richard Osullivan MD [address] [place] [address] Health Maintenance Due Date Last Done Comments Breast Cancer Screening 1960 Cervical Cancer Screening: P ap Smear 02/06/1981 Pneumococcal Vaccine: 50+ Ye ars (1 of 1 - PCV) 02/06/2010 Zoster Vaccines (1 of 2) 02/06/2010 DTaP,Tdap,and Td Vaccines (2 - Td or Tdap) 12/26/2017 12/27/2007 Colorectal Cancer Screening: Colonoscopy 06/02/2022 Depression Screening 06/02/2022 HIV Screening 06/02/2022 Hepatitis C Screening 06/02/2022 Medicare Annual Wellness Visit 06/02/2022 Social Influencers of Health Screening 06/02/2022 COVID-19 Vaccine ( - 2023-2 5 season) 2024 Influenza Vaccine [...] age to complete this topic Meningococcal B Vaccine Aged Out No l onger eligible based on patient's age to complete [...]
== END 2024-10-13 11:31 | disposition home or self-care (01) ==
LOC: HO.HMCC 08:59
PROVIDERS: PCP Internal Medicine; Visit Provider Internal Medicine
DX: I10 Essential (primary) hypertension (principal); G47.30 Sleep apnea, unspecified; E66.01 Morbid (severe) obesity due to excess calories; Z68.38 Body mass index [BMI] 38.0-38.9, adult; E78.9 Disorder of lipoprotein metabolism, unspecified; R00.2 Palpitations; G44.89 Other headache syndrome; H91.93 Unspecified hearing loss, bilateral; K58.2 Mixed irritable bowel syndrome

== ENCOUNTER → 2024-11-16 20:30 | Outpatient (BNV) | payer MEDICARE, MEDICAID, SELFPAY | PROVIDERS: PCP Internal Medicine; Visit Provider Internal Medicine | DX: G47.33 Obstructive sleep apnea (adult) (pediatric) (principal); R09.02 Hypoxemia | CPT/HCPCS: 95811 ==

== ENCOUNTER → 2024-11-16 20:30 | Outpatient (REF) | payer MEDICARE, MEDICAID, SELFPAY ==
--- OUTSIDE RECORDS SUMMARY | 2024-11-16 21:21 | XMS_ITS | Clinical Summary ---
Author Organization 175 [facility] Address [address] [place] [address] Phone Care Team Providers Care Log Inspector Name Role Phone Unavailable Primary Care Provider Unavailabl e Allergies Active Allergy Reactions Criticality Noted Date Comments Carisoprodol 11/02/2024 Penicillin 11/02/2024 Medications losartan (COZAAR) 50 mg tablet Take 1 tablet (50 mg total) by mouth 1 (one) time each day. Active hydroCHLOROthia zide (MICROZIDE) 12.5 mg capsule Take 1 capsule (12.5 mg total) by mouth 1 (one) time each day. Active simvastatin (ZOCOR) 10 mg tablet Take 1 tablet (10 mg total) by mouth at bedtime. at bedtime Active potassium chloride 20 mEq tablet extended release TAKE ONE TABLET BY MOUTH TWICE A DAY FOR 7 DAYS WITH FOOD 04/22/2024 Active dilTIAZem CD (CARDIZEM CD) 240 mg 24 hr capsule Take 1 capsule (240 mg total) by mouth 1 (one) time each day. 09/22/2024 Active prochlorperazin e (COMPAZINE) 10 mg tablet Take 1 tablet (10 mg total) by mouth every 6 (six) hours if needed for nausea. 08/22/2024 Active aspirin 81 mg EC tablet Take 1 tablet (81 mg total) by mouth 1 (one) time each day. 30 tablet 2 11/02/2024 Active Encounters Date Type Department Care Team Description 11/02/2024 2:40 PM EDT Consult [facility] [address] [address] Richard Osullivan MD Chronic migraine without aura without status migrainosus, not intractable (Primary Dx); Vitamin D deficiency; Cerebrovascular accident (CVA), unspecified mechanism (CMS/HCC V24, CMS/HCC V28) from Last 3 Months Social History Tobacco Use Types Packs/Day Years Used Date Smoking Tobacco: Never Assessed Comments Unknown Sex and Gender Information Value Date Recorded Sex Assigned at Not on file Legal Sex Female 9:47 PM EST Gender Identity Not on file Sexual Orientation Not on file Last Filed Vital Signs Vital Sign Reading Time Taken Comments Blood Pressure 122/72 11/02/2024 2:40 PM EDT Pulse 71 11/02/2024 2:40 PM EDT Temperature - - Respiratory Rate - - Oxygen Saturation 99% 11/02/2024 2:40 PM EDT Inhaled Oxygen Concentration - - Weight 95.3 kg (210 lb) 11/02/2024 2:40 PM EDT Height 162.6 cm (5' 4 ) 11/02/2024 2:40 PM EDT Body Mass Index 36.05 11/02/2024 2:40 PM EDT Plan of Treatment Upcoming Encounters Date Type Department Care Team (Late st Contact Info) Description 11/18/2024 10:00 AM EDT Procedure visit [facility] [address] [facility] [address] [place] [phone] Richard Osullivan MD 175 [facility] [address] [place] [address] 12/29/2024 10:00 AM EDT Office Visit [facility] [address] [facility] [address] [place] [phone] Paige Charles PA [address] [facility] [address] [place] [address] Health Maintenance Due Date Last Done Comments Breast Cancer Screening 1960 Cervical Cancer Screening: P ap Smear 02/06/1981 Pneumococcal Vaccine: 50+ Years (1 of 1 - PCV) 02/06/2010 Zoster Vaccines (1 of 2) 02/06/2010 Depression Screening 06/02/2022 HIV Screening 06/02/2022 Hepatitis C Screening 06/02/2022 Medicare Annual Wellness Visit 06/02/2022 Social Influencers of Health Screening 06/02/2022 COVID-19 Vaccine (4 - 2023-2 5 season) 2024 08/16/2021, 01/21/2021, 12/20/2020 Influenza Vaccine (Season Ended) 2025 DTaP,Tdap,and Td Vaccines (3 - Td or Tdap) 12/01/2032 12/01/2022, 12/27/2007 Colorectal Cancer Screening: Colonoscopy 10/27/2034 10/27/2024 RSV Immunization Adult Patients (1 - 1-dose 75+ series) 02/06/2035 HIB [...] age to complete this topic Pneumococcal Vaccine: Pediatrics (0 to 5 Years) and At-Risk Patients (6 to 64 Years) Aged Out No longer eligible b ased on patient's age to complete this topic RSV Immunization Patients Under 20 months Aged Out No longer eligible b ased on patient's age to complete this topic Varicella Vaccines Aged Out No longer eligible based on patient's age to complete this topic Procedures Procedure Name Priority Date/Time Associated Diagnosis Comments EXTERNAL COLONOSCOPY REPORT Routine 10/27/2024 1:56 PM EDT from Last 3 Months Results * External Colonoscopy Report (10/27/2024 1:56 PM EDT) Anatomical Region Laterality Modality Endoscopy us Historical Provider GI~PROCEDURE ORDERABLES F inal Result from Last 3 Months Insurance MEDICARE [place] - [place]
== END ==
LOC: HO.SL 20:30
PROVIDERS: PCP Internal Medicine; Visit Provider Internal Medicine
DX: G47.30 Sleep apnea, unspecified (principal)
CPT/HCPCS: 95811

== ENCOUNTER 2025-02-24 10:58 | Outpatient (AMB) | payer MEDICARE, MEDICAID, SELFPAY ==
[2025-02-24 11:07] VITALS: BP 134/78; PULSE 64; RESP 18; O2SAT 97; BMI 37.2
--- NOTE | 2025-02-24 11:07 | MHC.PC.OV ---
Vital Signs 02/24/25 11:07 Height 5 ft 4 in Weight 217 lb BMI 37.2 BP 134/78 Blood Pressure Location Lt brachial Position Sitting Respiration 18 Pulse 64 Pulse Source Pulse Oximeter Pulse Oximetry (%) 97 Intake Visit Reasons: 4 months Follow up RE Allergies penicillin V Allergy (Unknown, Verified 02/24/25 11:10) N/V Penicillins (PENICILLINS) Allergy (Unknown, Verified 02/24/25 11:10) IN HISTORY AND DOESN'T REMEMBER carisoprodol (From [facility]) Adverse Reaction (Intermediate, Verified 02/24/25 11:10) VOMITED amoxicillin Allergy (Unknown, Uncoded 02/24/25 11:10) GI upset Medication List - Last Reconciled 02/24/25 by Lupillo Vázquez MD aspirin 81 mg PO DAILY blood pressure monitor As directed [Cane with 4 prongs As directed] [Cpap machine Use As directed] diltiazem HCl CD 240 mg PO DAILY hydrochlorothiazide 12.5 mg PO DAILY losartan 50 mg PO DAILY potassium chloride 40 mEq (15 mL) PO ONCE 5 days prochlorperazine maleate 10 mg PO BID PRN 10 days simvastatin 10 mg PO BEDTIME Tobacco use date assessed: 02/24/25 Fall risk assessment: No Falls in past year Last assessed Fall Risk: 02/24/25 Dental Screening Dental Screen Date: 10/13/24 HPI 4 months Follow up RE HPI Details Longitudinal care visit History of Present Illness The patient is a 65-year-old female presenting with dermatological concerns on the right leg. Dermatological Issue on Right Leg: - The patient reported a dermatological issue on her right leg. - Initially consulted a cocktail lounge manager who attempted treatment by removing a layer and sending it for examination. - Subsequent treatments included burning the lesion, but the patient insisted on full removal due to discomfort. - Concerns expressed by the patient include the discomfort experienced when walking. - The patient is seeking a new cocktail lounge manager at [facility] for further evaluation and treatment. Weight Management: - The patient's weight has increased from 207.6 pounds in May to 217 pounds during this visit. - Expressed concerns about weight gain and is actively monitoring it. Medical History: - Essential Hypertension Medications: - Diltiazem 240 mg for blood pressure management - Hydrochlorothiazide 12.5 mg for blood pressure management - Losartan 50 mg for blood pressure management - Simvastatin 10 mg for cholesterol management Social History: - The patient has a hearing impairment but is able to read lips. - Expresses interest in physical activity as she plans to visit the park after her appointment. Diagnostic Results: - Labs: Mentioned a prior blood test in September, with the next scheduled for today. Problem List - Dermatological Lesion on Right Leg - Essential Hypertension - Obesity - lipid disorder - hearing impaired Patient Instructions - Contact [facility] for further evaluation and potential removal of the skin lesion. - Follow up with blood tests as scheduled. - Maintain monitoring of blood pressure and manage weight as discussed. - Return for a follow-up appointment in May. Review of Systems - General: No fever no chills - Neurological: No headaches no dizziness - Ear nose throat: No sore throat no hearing difficulty no ear pain - Cardiovascular: No syncope, no chest pain, no palpitations - Gastrointestinal: No nausea vomiting or diarrhea - Endocrine: No polyuria polydipsia no heat intolerance - Genitourinary: No dysuria , no blood in urine Physical Exam General: No acute distress HEENT: No acute findings Neck: Supple Respiratory system: Clear to auscultation Cardiovascular: S1-S2 regular in rate and rhythm Gastrointestinal: No pain Extremities: No new findings, no swelling SCIENTIST: Alert awake oriented x3 motor sensory intact Skin: Dermatological issue on right leg, skin growth nodular hard single medial upper thigh [facility] Medical History Thoracic disc herniation Generalized arthritis Back pain Urinary urgency Incomplete emptying of bladder Abscess of breast, right COPD (chronic obstructive pulmonary disease) Deafness Hyperlipidemia Palpitations IBS (irritable bowel syndrome) Lipid disorder Hypertension, essential Surgical History History of surgery History of removal of cyst History of colonoscopy Family History Father Dementia Mother No problems noted. Other Mental health disorder Social History Housing: Apartment Alcohol intake: current Alcohol intake frequency: 0-2 drinks per day Patient Tobacco Use Status: Current everyday Tobacco user Tobacco use type: Cigarette Cigarettes Per Day: 10 e-Cigarette/Vaping Use: Never Used Substance Use Type: Marijuana Advance Directives Date on File: 09/13/22 service: No Current occupational status: unemployed and retired Sexual orientation: Straight/Heterosexual Gender identity: Female Cognitive needs: No Hearing needs: Yes Vision needs: Yes Questionnaire Thrive Questionnaire Date Thrive assessed: 01/14/24 I am a: Patient MARK ANTHONY-7 AMB Questionnaire MARK ANTHONY-7 Date MARK ANTHONY - 7 assessed: 10/13/24 Source: Developed by Drs. Dejan Cruz, Louise Gomez, Leodan Harrison and colleagues, with an educational maria eugenia from [employer]. Physical exam (Primary Care) Vital Signs: Last Vital Signs Pulse 64 02/24/25 11:07 Resp 18 02/24/25 11:07 BP 134/78 02/24/25 11:07 Pulse Ox 97 02/24/25 11:07 BMI result Body Mass Index 37.2 Tobacco/Smoking Status: Tobacco use Status Tobacco use date assessed 02/24/25 02/24/25 11:12 Patient Tobacco Use Status Current everyday Tobacco 02/24/25 11:12 Tobacco use type Cigarette 02/24/25 11:12 e-Cigarette/Vaping Use Never Used 02/24/25 11:12 Thrive Assessment: Date of Thrive Assessment Date Thrive assessed 01/14/24 02/24/25 11:12 Coding Level of Care Code Est Pt Level 4 (78593) Complex EM visit Add On G2211 Diagnoses Skin growth D49.2 Hypertension, essential I10 Lipid disorder E78.9 Class 2 severe obesity due to excess calories with serious comorbidity and body mass index (BMI) of 38.0 to 38.9 in adult E66.01; Z68.38 Body mass index: BMI 38.0-38.9 Obesity classification: adult class 2 (BMI 35 - 39.9) Serious obesity comorbidity presence: with serious comorbidity Bilateral hearing loss, unspecified hearing loss type H91.93 Hearing loss type: unspecified Laterality: bilateral Irritable bowel syndrome with both constipation and diarrhea K58.2 Irritable bowel syndrome type: with both diarrhea and constipation Assessment & Plan Assessment & Plan (1) Skin growth: Code(s): D49.2 - Neoplasm of unspecified behavior of bone, soft tissue, and skin Category: Medical (2) Hypertension, essential: Code(s): I10 - Essential (primary) hypertension Category: Medical (3) Lipid disorder: Code(s): E78.9 - Disorder of lipoprotein metabolism, unspecified Category: Medical (4) Obesity due to excess calories: Code(s): E66.09 - Other obesity due to excess calories Category: Medical Qualifiers: Body mass index: BMI 38.0-38.9 Obesity classification: adult class 2 (BMI 35 - 39.9) Serious obesity comorbidity presence: with serious comorbidity Qualified Code(s): E66.01 - Morbid (severe) obesity due to excess calories; Z68.38 - Body mass index [BMI] 38.0-38.9, adult (5) Hearing impaired: Code(s): H91.90 - Unspecified hearing loss, unspecified ear Category: Medical Qualifiers: Hearing loss type: unspecified Laterality: bilateral Qualified Code(s): H91.93 - Unspecified hearing loss, bilateral (6) IBS (irritable bowel syndrome): Code(s): K58.9 - Irritable bowel syndrome, unspecified Category: Medical Qualifiers: Irritable bowel syndrome type: with both diarrhea and constipation Qualified Code(s): K58.2 - Mixed irritable bowel syndrome Plan Longitudinal care visit History of Present Illness The patient is a 65-year-old female presenting with dermatological concerns on the right leg. Dermatological Issue on Right Leg: - The patient reported a dermatological issue on her right leg. - Initially consulted a cocktail lounge manager who attempted treatment by removing a layer and sending it for examination. - Subsequent treatments included burning the lesion, but the patient insisted on full removal due to discomfort. - Concerns expressed by the patient include the discomfort experienced when walking. - The patient is seeking a new cocktail lounge manager at [facility] for further evaluation and treatment. Weight Management: - The patient's weight has increased from 207.6 pounds in May to 217 pounds during this visit. - Expressed concerns about weight gain and is actively monitoring it. Medical History: - Essential Hypertension Medications: - Diltiazem 240 mg for blood pressure management - Hydrochlorothiazide 12.5 mg for blood pressure management - Losartan 50 mg for blood pressure management - Simvastatin 10 mg for cholesterol management Social History: - The patient has a hearing impairment but is able to read lips. - Expresses interest in physical activity as she plans to visit the park after her appointment. Diagnostic Results: - Labs: Mentioned a prior blood test in September, with the next scheduled for today. Problem List - Dermatological Lesion on Right Leg - Essential Hypertension - Obesity - lipid disorder - hearing impaired Patient Instructions - Contact [facility] for further evaluation and potential removal of the skin lesion. - Follow up with blood tests as scheduled. - Maintain monitoring of blood pressure and manage weight as discussed. - Return for a follow-up appointment in May. Orders: Orders Complete Blood Count Auto Diff Today E66.01 - Morbid (severe) obesity due to excess calories, E78.9 - Disorder of lipoprotein metabolism, unspecified, H91.93 - Unspecified hearing loss, bilateral, I10 - Essential (primary) hypertension, K58.2 - Mixed irritable bowel syndrome, Z68.38 - Body mass index [BMI] 38.0-38.9, adult Comprehensive [place]. Panel Fast Today E66.01 - Morbid (severe) obesity due to excess calories, E78.9 - Disorder of lipoprotein metabolism, unspecified, H91.93 - Unspecified hearing loss, bilateral, I10 - Essential (primary) hypertension, K58.2 - Mixed irritable bowel syndrome, Z68.38 - Body mass index [BMI] 38.0-38.9, adult Lipid Panel Today E66.01 - Morbid (severe) obesity due to excess calories, E78.9 - Disorder of lipoprotein metabolism, unspecified, H91.93 - Unspecified hearing loss, bilateral, I10 - Essential (primary) hypertension, K58.2 - Mixed irritable bowel syndrome, Z68.38 - Body mass index [BMI] 38.0-38.9, adult TSH reflex Free T4 Today E66.01 - Morbid (severe) obesity due to excess calories, E78.9 - Disorder of lipoprotein metabolism, unspecified, H91.93 - Unspecified hearing loss, bilateral, I10 - Essential (primary) hypertension, K58.2 - Mixed irritable bowel syndrome, Z68.38 - Body mass index [BMI] 38.0-38.9, adult Referrals Dermatology Referral D49.2 - Neoplasm of unspecified behavior of bone, soft tissue, and skin
--- OUTSIDE RECORDS SUMMARY | 2025-02-24 11:55 | XMS_ITS | Clinical Summary ---
Author Organization [facility] Address [address] [place] [address] Phone Care Team Providers Care [place] Production Supervisor Name Role Phone Unavailable Primary Care Provider Unavailabl e Allergies Active Allergy Reactions Criticality Noted Date Comments Carisoprodol 11/02/2024 Penicillin 11/02/2024 Medications losartan (COZAAR) 50 mg tablet Take 1 tablet (50 mg total) by mouth 1 (one) time each day. Active hydroCHLOROthiaz lan (MICROZIDE) 12.5 mg capsule Take 1 capsule (12.5 mg total) by mouth 1 (one) time each day. Active simvastatin (ZOCOR) 10 mg tablet Take 1 tablet (10 mg total) by mouth at bedtime. at bedtime Active potassium chloride 20 mEq tablet extended release TAKE ONE TABLET BY MOUTH TWICE A DAY FOR 7 DAYS WITH FOOD 4 Active dilTIAZem CD (CARDIZEM CD) 240 mg 24 hr capsule Take 1 capsule (240 mg total) by mouth 1 (one) time each day. 5 Active prochlorperazine (COMPAZINE) 10 mg tablet Take 1 tablet (10 mg total) by mouth every 6 (six) hours if needed for nausea. 5 Active aspirin 81 mg EC tablet Take 1 tablet (81 mg total) by mouth 1 (one) time each day. 30 tablet 2 5 11/03/19 26 Active ondansetron (ZOFRAN) 4 mg tabletIndication s:Chronic migraine without aura without status migrainosus, not intractable 1 p.o. daily as needed for nausea associated with migraine 20 tablet 1 5 Active Encounters Date Type Department Care Team Description 01/06/2025 12:03 PM EDT - 01/06/2025 11:59 PM EDT Hospital Encounter [facility] MRI [address] [place] [id number] Chronic migraine without aura without status migrainosus, not intractable Discharge Disposition: Home or Self Care 12/29/2024 10:00 AM EDT Office Visit [facility] [address] [place] [address] Paige Charles PA Chronic migraine without aura without status migrainosus, not intractable (Primary Dx) 12/02/2024 Telephone [facility] [address] [phone] Richard Osullivan MD from Last 3 Months Social History Tobacco Use Types Packs/Day Years Used Date Smoking Tobacco: Never Assessed Comments Unknown Sex and Gender Information Value Date Recorded Sex Assigned at Not on file Legal Sex Female 9:47 PM EST Gender Identity Not on file Sexual Orientation Not on file Last Filed Vital Signs Vital Sign Reading Time Taken Comments Blood Pressure 102/59 12/29/2024 9:42 AM EDT Pulse 71 12/29/2024 9:42 AM EDT Temperature 36.3 C (97.4 F) 12/29/2024 9:42 AM EDT Respiratory Rate - - Oxygen Saturation 97% 12/29/2024 9:42 AM EDT Inhaled Oxygen Concentration - - Weight 97.5 kg (215 lb) 12/29/2024 9:42 AM EDT Height 162.6 cm (5' 4 ) 12/29/2024 9:42 AM EDT Body Mass Index 36.9 12/29/2024 9:42 AM EDT Plan of Treatment Upcoming Encounters Date Type Department Care Team (Late st Contact Info) Description 03/03/2025 10:00 AM EDT Procedure visit [facility] [address] [phone] Richard Osullivan MD [address] [place] [phone] 04/07/2025 11:00 AM EDT Office Visit [facility] [address] [phone] Paige Charles, SOHEILA [address] [place] [address] Health Maintenance Due Date Last Done Comments Breast Cancer Screening 1960 Cervical Cancer Screening: P ap Smear 02/06/1981 Pneumococcal Vaccine: 50+ Years (1 of 1 - PCV) 02/06/2010 Zoster Vaccines (1 of 2) 02/06/2010 Hepatitis C Screening 06/02/2022 Medicare Annual Wellness Visit 06/02/2022 Osteoporosis Screening (Bone Density Screening) 06/02/2022 Social Influencers of Health Screening 06/02/2022 COVID-19 Vaccine (4 - 2023-2 5 season) 2024 08/16/2021, 01/21/2021, 12/20/2020 Depression Screening 07/01/2024 Falls Risk Assessment 02/06/2025 Influenza Vaccine (#1) 2025 DTaP,Tdap,and Td Vaccines (3 - Td [...] Procedure Name Priority Date/Time Associated Diagnosis Comments MR BRAIN WO CONTRAST Routine 01/06/2025 1:44 PM EDT Chronic migraine without aura without status migrainosus, not intractable EXTERNAL COLONOSCOPY REPORT Routine 10/27/2024 1:56 PM EDT from Last 3 Months or Most Recently Relevant to Health Maintenance Results * MR Brain wo Contrast (01/06/2025 1:44 PM EDT) Anatomical Region Laterality Modality Head and Neck Magnetic Resonan ce 01/07/2025 4:45 PM EDT Impressions 01/08/2025 8:33 AM EDT 1. Nonspecific juxtacortical and periventricular supratentorial white matter lesions and patchy signal abnormality in the scooter. There is a reported history of multiple sclerosis, and these could be demyelinating lesions, but they could also be secondary to chronic microvascular ischemic disease. 2. Elongated of encephalomalacia in the high left basal ganglia and left joseph radiata suggestive of a previous hypertensive hemorrhage. -------- FINAL REPORT -------- Dictated By: Ryan Astudillo Dictated Date: 01/07/2025 16:45 ET Assigned Physician: Ryan Astudillo Reviewed and Electronically Signed By: Ryan Astudillo Signed Date: 01/08/2025 08:33 ET Workstation ID: [id number] Transcribed By: Self Edit Transcribed Date: 01/07/2025 16:49 ET Narrative 01/08/2025 8:33 AM EDT PROCEDURE: Noncontrast MRI of the brain. HISTORY: Headache, chronic, no new features Multiple sclerosis, monitor. COMPARISON: No prior study available for comparison. TECHNIQUE: Multiplanar multisequence MRI of the brain without intravenous contrast administration. FINDINGS: BRAIN: Multiple juxtacortical and periventricular T2 hyperintense lesions in the supratentorial white matter. Patchy T2 signal abnormality in the scooter. No diffusion abnormality. No mass or extra-axial fluid collection. No hydrocephalus. The major intracranial flow voids are preserved. Age commensurate ventricles and sulci. There is an elongated area of encephalomalacia in the high left basal ganglia and joseph radiata, with mild ex vacuo dilatation of the adjacent lateral ventricle. The area of encephalomalacia is lined by hemosiderin and is suspected to represent sequela of a remote hypertensive hemorrhage. ORBITS: Right lens implant. Normal appearance of the optic nerves. SINUSES/MASTOIDS: Small mucous retention cyst in the anteromedial right maxillary antrum. Minimal mucosal thickening in the ethmoids. Mild rightward bowing of the nasal septum. CALVARIUM: Normal. OTHER: The visualized skull base soft tissues are normal. Partially visible degenerative changes of the cervical spine. Procedure Note Ryan Astudillo MD - 01/08/2025 PROCEDURE: Noncontrast MRI of the brain. HISTORY: Headache, chronic, no new features Multiple sclerosis, monitor. COMPARISON: No prior study available for comparison. TECHNIQUE: Multiplanar multisequence MRI of the brain without intravenouscontrast administration. FINDINGS: BRAIN: Multiple juxtacortical and periventricular T2 hyperintense lesionsin the supratentorial white matter. Patchy T2 signal abnormality in thepons. No diffusion abnormality. No mass or extra-axial fluid collection.No hydrocephalus. The major intracranial flow voids are preserved. Agecommensurate ventricles and sulci. There is an elongated area ofencephalomalacia in the high left basal ganglia and joseph radiata, withmild ex vacuo dilatation of the adjacent lateral ventricle. The area ofencephalomalacia is lined by hemosiderin and is suspected to representsequela of a remote hypertensive hemorrhage. ORBITS: Right lens implant. Normal appearance of the optic nerves. SINUSES/MASTOIDS: Small mucous retention cyst in the anteromedial rightmaxillary antrum. Minimal mucosal thickening in the ethmoids. Mildrightward bowing of the nasal septum. CALVARIUM: Normal. OTHER: The visualized skull base soft tissues are normal. Partiallyvisible degenerative changes of the cervical spine. IMPRESSION: 1. Nonspecific juxtacortical and periventricular supratentorial whitematter lesions and patchy signal abnormality in the scooter. There is areported history of multiple sclerosis, and these could be demyelinatinglesions, but they could also be secondary to chronic microvascularischemic disease. 2. Elongated of encephalomalacia in the high left basal ganglia and leftcorona radiata suggestive of a previous hypertensive hemorrhage. -------- FINAL REPORT -------- Dictated By: Ryan Astudillo Dictated Date: 01/07/2025 16:45 ET Assigned Physician: Ryan Astudillo Reviewed and Electronically Signed By: Ryan Astudillo Signed Date: 01/08/2025 08:33 ET Workstation ID: [id number] Transcribed By: Self Edit Transcribed Date: 01/07/2025 16:49 ET [facility] IM[facility] MRI PROCEDURES Final Res ult * External Colonoscopy Report (10/27/2024 1:56 PM EDT) Anatomical Region Laterality Modality Endoscopy Historical Provider GI~PROCEDURE ORDERABLES F inal Result from Last 3 Months or Most Recently Relevant to Health Maintenance Insurance [place]
== END 2025-02-24 12:59 | disposition home or self-care (01) ==
LOC: HO.HMCC 10:59
PROVIDERS: PCP Internal Medicine; Visit Provider Internal Medicine
DX: D49.2 Neoplasm of unspecified behavior of bone, soft tissue, and skin (principal); I10 Essential (primary) hypertension; E78.9 Disorder of lipoprotein metabolism, unspecified; E66.01 Morbid (severe) obesity due to excess calories; Z68.38 Body mass index [BMI] 38.0-38.9, adult; H91.93 Unspecified hearing loss, bilateral; K58.2 Mixed irritable bowel syndrome

== ENCOUNTER 2025-02-24 10:58 | Outpatient (REF) | payer MEDICARE, MEDICAID, SELFPAY ==
[2025-02-24 13:20] LABS: MANUAL DIFF FLAG NO
[2025-02-24 14:02] LABS: Hematocrit 42.7 % (37.0-47.0); Hemoglobin 14.7 g/dl (12.0-16.0); Imm Gran Abs Auto 0.05 X10*3/uL (0.00-0.03); Imm Gran Pct Auto 0.5 % (0.0-0.4); Lymphocytes Absolute Auto 2.8 X10*3/uL (1.2-4.9); Mean Corpuscular HGB Conc 34.4 g/dl (31.0-35.0); Mean Corpuscular Hemoglobin 32.1 pg (27.0-33.0); Mean Corpuscular Volume 93.2 fL (80.0-98.0); NRBC Abs Auto 0.000 X10*3/uL (0.0-0.012); NRBC Pct Auto 0.0 /100WBC (0.0-0.2); Platelet Count 309 X10*3/uL (160-400); Red Blood Count 4.58 X10*6/uL (4.20-5.50); White Blood Count 9.5 X10*3/uL (4.8-10.8)
[2025-02-24 14:47] LABS: Alanine Aminotransferase 30 U/L (0-31); Albumin Level 4.4 g/dL (3.5-5.0); Alkaline Phosphatase 64 U/L (39-117); Anion Gap 13 (12-20); Aspartate Amino Transferase 32 U/L (5-31); Blood Urea Nitrogen 16 mg/dL (9-16); Calcium 9.5 mg/dL (8.4-10.2); Carbon Dioxide 32 mmol/L (22-29); Chloride 102 mmol/L (96-108); Cholesterol 179 mg/dL (<200); Estimated Glomerular Filt Rate > 60; HDL Cholesterol 42 mg/dL (>40); Potassium 3.2 mmol/L (3.3-5.1); Sodium 144 mmol/L (135-145); Total Protein 7.0 g/dL (6.5-8.0); Triglycerides 147 mg/dL (<150)
== END 2025-02-24 10:59 | disposition home or self-care (01) ==
LOC: HO.HMGCLDS 10:58
PROVIDERS: PCP Internal Medicine; Visit Provider Internal Medicine
DX: I10 Essential (primary) hypertension (principal); E78.9 Disorder of lipoprotein metabolism, unspecified; E66.01 Morbid (severe) obesity due to excess calories; H91.93 Unspecified hearing loss, bilateral; K58.2 Mixed irritable bowel syndrome; D49.2 Neoplasm of unspecified behavior of bone, soft tissue, and skin; Z79.82 Long term (current) use of aspirin; Z79.899 Other long term (current) drug therapy; Z68.37 Body mass index [BMI] 37.0-37.9, adult
CPT/HCPCS: 36415; 80053; 80061; 84443; 85025; 99212

== ENCOUNTER 2025-04-09 09:20 | Outpatient (AMB) | payer MEDICARE, MEDICAID, SELFPAY ==
--- NOTE | 2025-04-09 09:22 | A.OFFPC_ITS ---
Vital Signs 04/09/25 09:38 Height 5 ft 4 in Weight 217 lb BMI 37.2 BP 122/74 Blood Pressure Location Lt brachial Position Sitting Pulse 85 Pulse Source Pulse Oximeter Pulse Oximetry (%) 98 Intake Visit Reasons: Discharge follow up Validation Scientist Required: Yes Validation Scientist Language: Analytical Scientist Name: Laith Villafuerte ID# [id number] Allergies penicillin V Allergy (Unknown, Verified 04/09/25 09:39) N/V Penicillins (PENICILLINS) Allergy (Unknown, Verified 04/09/25 09:39) IN HISTORY AND DOESN'T REMEMBER carisoprodol (From [facility]) Adverse Reaction (Intermediate, Verified 04/09/25 09:39) VOMITED amoxicillin Allergy (Unknown, Uncoded 02/24/25 11:10) GI upset Medication List - Last Reconciled 04/09/25 by Lupillo Vázquez MD aspirin 81 mg PO DAILY blood pressure monitor As directed [Cane with 4 prongs As directed] [Cpap machine Use As directed] diltiazem HCl CD 240 mg PO DAILY hydrochlorothiazide 12.5 mg PO DAILY losartan 50 mg PO DAILY potassium chloride 40 mEq (15 mL) PO ONCE 5 days prochlorperazine maleate 10 mg PO BID PRN 10 days simvastatin 10 mg PO BEDTIME Tobacco use date assessed: 02/24/25 Fall risk assessment: No Falls in past year Last assessed Fall Risk: 04/09/25 Dental Screening Dental Screen Date: 10/13/24 HPI Discharge follow up HPI Details History The patient is a 65-year-old female with H/o HTN, Lipid disorder, presenting for follow up after visiting [facility] on 03/30/25, with abdominal pain and nausea. Patient is hearing and speach impaired, we used sign language interpretor for this visit [facility] didnt send us any documents inspite of us requesting them so info is limited and take from patient Abdominal Pain: - Patient reports generlized abdominal pain. and since she has H/o recurrent diverticulitis she went to ER as she was also vomiting - Noted a flare-up four days before hosp ital admission on March 30, 2025. - Pain was intense enough to prompt a ho spital visit. - Previous imaging (CT scan of the abdom en in 2022) confirmed the presence of diverticulitis. - Pain described as all over during th is visit, which differs from typical diverticulitis. Problem List - Recurrent diverticulitis - Nausea - Hearing impairment - Essential hypertension - Urinary tract infection (recent) - Hyperlipidemia Diagnostic results - CT scan of the abdomen in 2022 confirm ed diverticulitis. - Urine test repeated during the visit s howed a small amount of blood, consistent with previous tests. [place] [facility] - Seen by gastroenterology at [facility]. - Previously consulted a urologist for s imilar symptoms of blood in urine, work up was Negative Plan - A urine test was conducted to confirm the resolution of the urinary tract infection. - No immediate evidence of urinary tract infection, though a small amount of blood was noted in the urine, consistent with prior findings. - Blood tests are ordered to check kidne y function. - Patient advised to observe dietary mod ifications: light, bland meals to manage nausea. - Prescribed a topical cream for itching and irritation as patient complained of vaginal itching - Recommend follow-up in 7 to 10 days to reassess symptoms and review test results. - decline to go to [facility] Review of Systems. General: No fever no chills neurological: No headaches no dizziness ear nose throat: No sore throat cardiovascular: No syncope, no chest pain, no palpitations gastrointestinal: No vomiting anymore or diarrhea endocrine: No polyuria polydipsia no heat intolerance Physical Exam general: No acute distress HEENT: No acute findings neck: Supple respiratory system: no audible wheeze no stridor, clear to auscultation cardiovascular: S1-S2 RRR gastrointestinal: Generalized abdominal pain, no pain in the left lower quadrant extremities: No new findings STRATEGY DIRECTOR: Alert awake oriented x3 motor sensory intact skin: Normal turgor, itching present [facility] Medical History Thoracic disc herniation Generalized arthritis Back pain Urinary urgency Incomplete emptying of bladder Abscess of breast, right COPD (chronic obstructive pulmonary disease) Deafness Hyperlipidemia Palpitations IBS (irritable bowel syndrome) Lipid disorder Hypertension, essential Surgical History History of surgery History of removal of cyst History of colonoscopy Family History Father Dementia Mother No problems noted. Other Mental health disorder Social History Housing: Apartment Alcohol intake: current Alcohol intake frequency: 0-2 drinks per day Patient Tobacco Use Status: Current everyday Tobacco user Tobacco use type: Cigarette Cigarettes Per Day: 10 e-Cigarette/Vaping Use: Never Used Substance Use Type: Marijuana Advance Directives Date on File: 09/13/22 service: No Current occupational status: unemployed and retired Sexual orientation: Straight/Heterosexual Gender identity: Female Cognitive needs: No Hearing needs: Yes Vision needs: Yes Questionnaire PHQ-9 Over the last 2 weeks, how often have you been bothered by any of the following problems? 1. Little interest or pleasure in doing things: nearly every day 2. Feeling down, depressed, or hopeless: several days 3. Trouble falling or staying asleep, or sleeping too much: several days 4. Feeling tired or having little energy: several days 5. Poor appetite or overeating: several days 6. Feeling bad about yourself - or that you are a failure or have let yourself or your family down: several days 7. Trouble concentrating on things, such as reading the newspaper or watching television: not at all 8. Moving or speaking so slowly that other people could have noticed. Or the opposite - being so fidgety or restless that you have been moving around a lot more than usual: not at all 9. Thoughts that you would be better off or of hurting yourself in some way: not at all Total score: 8 Depression Screening Interpretation: Positive Depression Screening Follow-up: Declines treatment Depression Screening Done: Yes 64019 - PHQ-9 Billing: Yes Source: Developed by Drs. Dejan Cruz, Leodan Rajan and colleagues, with an educational maria eugenia from [employer]. Thrive Questionnaire Date Thrive assessed: 04/09/25 I am a: Patient What is your living situation today?: I have a steady place to live Within the past 12 months, did the food you bought not last and you didn't have the money to get more?: Sometimes True THRIVE Score: 1 MARK ANTHONY-7 AMB Questionnaire MARK ANTHONY-7 Date MARK ANTHONY - 7 assessed: 10/13/24 Source: Developed by Drs. Dejan Cruz, Leodan Rajan and colleagues, with an educational maria eugenia from [employer]. Physical exam (Primary Care) Vital Signs: Last Vital Signs Pulse 85 04/09/25 09:38 BP 122/74 04/09/25 09:38 Pulse Ox 98 04/09/25 09:38 BMI result Body Mass Index 37.2 Tobacco/Smoking Status: Tobacco use Status Tobacco use date assessed 02/24/25 04/09/25 09:23 Patient Tobacco Use Status Current everyday Tobacco 04/09/25 09:23 Tobacco use type Cigarette 04/09/25 09:23 e-Cigarette/Vaping Use Never Used 04/09/25 09:23 PHQ-9: PHQ-9 Score PHQ-9: Total score 8 04/09/25 09:58 Depression Screening Interpretation: Positive Depression Screening Follow-up: Declines treatment Thrive Assessment: Date of Thrive Assessment Date Thrive assessed 04/09/25 04/09/25 09:23 Results AMB Urinalysis, Automated UA Leukoctes 0 Ayo/uL Last Edit by Nba Johnson CMA on 04/09/25 09:43 UA Nitrite Negative Last Edit by Nba Johnson CMA on 04/09/25 09:43 UA Urobilinogen 0.2 mg/dL Last Edit by Nba Johnson CMA on 04/09/25 09 :43 UA Protein 0 mg/dL Last Edit by Nba Johnson CMA on 04/09/25 09:43 UA pH 6.0 Last Edit by Nba Johnson CMA on 04/09/25 09:43 UA Blood 25 Med/uL Last Edit by Nba Johnson CMA on 04/09/25 09:43 UA Specific Byers 1.025 Last Edit by Nba Johnson CMA on 04/09/25 09:43 UA Ketone Negative Last Edit by Nba Johnson CMA on 04/09/25 09:43 UA Bilirubin 1 mg/dL Last Edit by Nba Johnson CMA on 04/09/25 09:43 UA Glucose 0 mg/dL Last Edit by Nba Johnson CMA on 04/09/25 09:43 Results Reviewed Results Reviewed: Laboratory Last Values Urine pH (Auto) 6.0 04/09/25 09:42 Specific Byers (Auto) 1.025 04/09/25 09:42 Urine Protein (Auto) 0 mg/dL 04/09/25 09:42 Glucose (UA)(Auto) 0 mg/dL 04/09/25 09:42 Urine Ketones (Auto) Negative 04/09/25 09:42 Urine Blood (Auto) 25 Med/uL 04/09/25 09:42 Urine Nitrite (Auto) Negative 04/09/25 09:42 Urine Bilirubin (Auto) 1 mg/dL 04/09/25 09:42 Urine Urobilinogen (Auto) 0.2 mg/dL 04/09/25 09:42 Leukocyte Esterase (Auto) 0 Ayo/uL 04/09/25 09:42 Coding Level of Care Code Est Pt Level 5 (67868) Diagnoses Seen in emergency room Z76.89 Generalized abdominal pain R10.84 Hypertension, essential I10 Lipid disorder E78.9 Irritable bowel syndrome with both constipation and diarrhea K58.2 Irritable bowel syndrome type: with both diarrhea and constipation Class 2 severe obesity due to excess calories with serious comorbidity and body mass index (BMI) of 38.0 to 38.9 in adult E66.01; Z68.38 Body mass index: BMI 38.0-38.9 Obesity classification: adult class 2 (BMI 35 - 39.9) Serious obesity comorbidity presence: with serious comorbidity Additional Codes PHQ-9 - 72001 - PHQ-9 Billing: Yes ([id number]) Time Spent (min) 40 Comment contacting [facility] for info, face to face with patient and interpretator, coorindation of ca Assessment & Plan Assessment & Plan (1) Seen in emergency room: Code(s): Z76.89 - Persons encountering health services in other specified circumstances Category: Medical (2) Generalized abdominal pain: Code(s): R10.84 - Generalized abdominal pain Category: Medical (3) Hypertension, essential: Code(s): I10 - Essential (primary) hypertension Category: Medical (4) Lipid disorder: Code(s): E78.9 - Disorder of lipoprotein metabolism, unspecified Category: Medical (5) IBS (irritable bowel syndrome): Code(s): K58.9 - Irritable bowel syndrome, unspecified Category: Medical Qualifiers: Irritable bowel syndrome type: with both diarrhea and constipation Qualified Code(s): K58.2 - Mixed irritable bowel syndrome (6) Obesity due to excess calories: Code(s): E66.09 - Other obesity due to excess calories Category: Medical Qualifiers: Body mass index: BMI 38.0-38.9 Obesity classification: adult class 2 (BMI 35 - 39.9) Serious obesity comorbidity presence: with serious comorbidity Qualified Code(s): E66.01 - Morbid (severe) obesity due to excess calories; Z68.38 - Body mass index [BMI] 38.0-38.9, adult Plan History The patient is a 65-year-old female with H/o HTN, Lipid disorder, presenting for follow up after visiting [facility] on 03/30/25, with abdominal pain and nausea. Patient is hearing and speach impaired, we used sign language interpretor for this visit [facility] didnt send us any documents inspite of us requesting them so info is limited and take from patient Abdominal Pain: - Patient reports generlized abdominal pain. and since she has H/o recurrent diverticulitis she went to ER as she was also vomiting - Noted a flare-up four days before hospital admission on March 30, 2025. - Pain was intense enough to prompt a hospital visit. - Previous imaging (CT scan of the abdomen in 2022) confirmed the presence of diverticulitis. - Pain described as all over during this visit, which differs from typical diverticulitis. Problem List - Recurrent diverticulitis - Nausea - Hearing impairment - Essential hypertension - Urinary tract infection (recent) - Hyperlipidemia Diagnostic results - CT scan of the abdomen in 2022 confirmed diverticulitis. - Urine test repeated during the visit showed a small amount of blood, consistent with previous tests. [place] [facility] - Seen by gastroenterology at [facility]. - Previously consulted a urologist for similar symptoms of blood in urine, work up was Negative Plan - A urine test was conducted to confirm the resolution of the urinary tract infection. - No immediate evidence of urinary tract infection, though a small amount of blood was noted in the urine, consistent with prior findings. - Blood tests are ordered to check kidney function. - Patient advised to observe dietary modifications: light, bland meals to manage nausea. - Prescribed a topical cream for itching and irritation as patient complained of vaginal itching - Recommend follow-up in 7 to 10 days to reassess symptoms and review test results. - decline to go to [facility] Orders: Orders AMB Urinalysis Automated 04/09/25 Z13.9 - Encounter for screening, unspecified Comprehensive [place]. Panel Fast 04/09/25 E6. - Morbid (severe) obesity due to excess calories, E78.9 - Disorder of lipoprotein metabolism, unspecified, I10 - Essential (primary) hypertension, K58.2 - Mixed irritable bowel syndrome, Z68.38 - Body mass index [BMI] 38.0-38.9, adult Lipid Panel 04/09/25. - Morbid (severe) obesity due to excess calories, E78.9 - Disorder of lipoprotein metabolism, unspecified, I10 - Essential (primary) hypertension, K58.2 - Mixed irritable bowel syndrome, Z68.38 - Body mass index [BMI] 38.0-38.9, adult TSH reflex Free T4 04/09/25. - Morbid (severe) obesity due to excess calories, E78.9 - Disorder of lipoprotein metabolism, unspecified, I10 - Essential (primary) hypertension, K58.2 - Mixed irritable bowel syndrome, Z68.38 - Body mass index [BMI] 38.0-38.9, adult Complete Blood Count Auto Diff 04/09/25. - Morbid (severe) obesity due to excess calories, E78.9 - Disorder of lipoprotein metabolism, unspecified, I10 - Essential (primary) hypertension, K58.2 - Mixed irritable bowel syndrome, Z68.38 - Body mass index [BMI] 38.0-38.9, adult Medications: New nystatin 1 appl topical .qhs 30 grams 1RF genital itching 30 days
[2025-04-09 09:38] VITALS: BP 122/74; PULSE 85; O2SAT 98; BMI 37.2
== END 2025-04-09 09:54 | disposition home or self-care (01) ==
LOC: HO.HMCC 09:20
PROVIDERS: PCP Internal Medicine; Visit Provider Internal Medicine
DX: Z13.9 Encounter for screening, unspecified (principal)

== ENCOUNTER 2025-04-09 09:20 | Outpatient (REF) | payer MEDICARE, MEDICAID, SELFPAY ==
[2025-04-09 13:17] LABS: MANUAL DIFF FLAG NO
[2025-04-09 13:26] LABS: Hematocrit 45.6 % (37.0-47.0); Hemoglobin 15.6 g/dl (12.0-16.0); Imm Gran Abs Auto 0.03 X10*3/uL (0.00-0.03); Imm Gran Pct Auto 0.4 % (0.0-0.4); Lymphocytes Absolute Auto 2.3 X10*3/uL (1.2-4.9); Mean Corpuscular HGB Conc 34.2 g/dl (31.0-35.0); Mean Corpuscular Hemoglobin 31.9 pg (27.0-33.0); Mean Corpuscular Volume 93.3 fL (80.0-98.0); NRBC Abs Auto 0.000 X10*3/uL (0.0-0.012); NRBC Pct Auto 0.0 /100WBC (0.0-0.2); Platelet Count 336 X10*3/uL (160-400); Red Blood Count 4.89 X10*6/uL (4.20-5.50); White Blood Count 7.9 X10*3/uL (4.8-10.8)
[2025-04-09 14:06] LABS: Alanine Aminotransferase 32 U/L (0-31); Albumin Level 4.4 g/dL (3.5-5.0); Alkaline Phosphatase 56 U/L (39-117); Anion Gap 12 (12-20); Aspartate Amino Transferase 39 U/L (5-31); Blood Urea Nitrogen 17 mg/dL (9-16); Calcium 9.6 mg/dL (8.4-10.2); Carbon Dioxide 33 mmol/L (22-29); Chloride 102 mmol/L (96-108); Cholesterol 198 mg/dL (<200); Estimated Glomerular Filt Rate 58; HDL Cholesterol 37 mg/dL (>40); Potassium 3.7 mmol/L (3.3-5.1); Sodium 143 mmol/L (135-145); Total Protein 7.1 g/dL (6.5-8.0); Triglycerides 178 mg/dL (<150)
== END 2025-04-09 09:21 | disposition home or self-care (01) ==
LOC: HO.HMGCLDS 09:20
PROVIDERS: PCP Internal Medicine; Visit Provider Internal Medicine
DX: I10 Essential (primary) hypertension (principal); R10.9 Unspecified abdominal pain; R11.0 Nausea; R10.84 Generalized abdominal pain; E78.9 Disorder of lipoprotein metabolism, unspecified; K58.2 Mixed irritable bowel syndrome; E66.01 Morbid (severe) obesity due to excess calories; E66.812 Obesity, class 2; Z68.38 Body mass index [BMI] 38.0-38.9, adult; Z76.89 Persons encountering health services in other specified circumstances
CPT/HCPCS: 36415; 80053; 80061; 81003; 84443; 85025; 96127; 99212

== ENCOUNTER 2025-04-21 11:50 | Outpatient (REF) | payer MEDICARE, MEDICAID, SELFPAY ==
--- OUTSIDE RECORDS SUMMARY | 2025-04-20 08:30 | XMS_ITS | Encounter Summary ---
Author Organization [facility] Address [id number] [place] [id number] Care Team Providers Care Mesmerist Name Role Phone Physician, No Pcp Primary Care Provider Unavaila ble Encounter Details Date Type Department Care Team (Late st Contact Info) Description 04/20/2025 8:30 AM EDT Office Visit [facility] [address] [place] [address] Paige Charles PA [address] [place] [address] Social History Tobacco Use Types Packs/Day Years Used Date Smoking Tobacco: Every Day Cigarettes Tobacco Cessation:Ready to Q uit: Not Asked; Counseling Given: Not Answered Alcohol Use Standard Drinks/Week Comments Yes 0 (1 standard drink = 0.6 oz pur e alcohol) occasional Interpersonal Safety Answer Date Record ed Physical Abuse Unrecognized value 03/30/2025 Verbal Abuse Unrecognized value 03/30/2025 Comments Unknown Sex and Gender Information Value Date Recorded Sex Assigned at Not on file Legal Sex Female 9:47 PM EST Gender Identity Not on file Sexual Orientation Not on file documented as of this encounter Last Filed Vital Signs Vital Sign Reading Time Taken Comments Blood Pressure 188/86 04/20/2025 8:39 AM EDT Pulse 69 04/20/2025 8:39 AM EDT Temperature 35.9 C (96.6 F) 04/20/2025 8:39 AM EDT Respiratory Rate - - Oxygen Saturation 99% 04/20/2025 8:39 AM EDT Inhaled Oxygen Concentration - - Weight - - Height - - Body Mass Index - - documented in this encounter Functional Status * Are you deaf or do you have serious difficulty hearing? Answer Date of Assessment Author No 03/30/2025 2:29 PM EDRedman RN * Are you blind or do you have serious difficulty seeing, even when wearing glasses? Answer Date of Assessment Author No 03/30/2025 2:29 PM Brown RN * Do you have serious difficulty walking or climbing stairs? Answer Date of Assessment Author No 03/30/2025 2:29 PM Brown RN * Do you have serious difficulty dressing or bathing? Answer Date of Assessment Author No 03/30/2025 2:29 PM Brown RN * Because of a physical, mental, or emotional condition, do you have serious difficulty doing errandsalone such as visiting the doctor? Answer Date of Assessment Author No 03/30/2025 2:29 PM Brown RN documented as of this encounter Mental Status * Because of a physical, mental, or emotional condition, do you have serious difficulty concentrating, remembering, or making decisions? (5 years old or older) Answer Entry Date Author No 03/30/2025 2:29 PM Brown RN documented in this encounter Ordered Prescriptions Prescription Sig Dispense Quantity Refills Last Filled Start Date End Date tiZANidine (ZANAFLEX) 2 mg tablet 1po hs PRN neck spasm 20 tablet 1 04/20/2025 documented in this encounter Plan of Treatment Upcoming Encounters Date Type Department Care Team (Late st Contact Info) Description 05/19/2025 11:00 AM EST Procedure visit [facility] [address] [phone] Richard Osullivan MD [address] [place] [id number] 07/21/2025 11:00 AM EST Office Visit [facility] [address] [phone] Paige Charles PA [address] [place] [phone] documented as of this encounter Visit Diagnoses Not on filedocumented in this encounter Discontinued Medications Medication Sig Discontinue Reason Start Date End Da te dicyclomine (BENTYL) 10 mg capsuleIndications:Colic ky LLQ abdominal pain Take 1 capsule (10 mg total) by mouth 3 (three) times a day. Therapy completed 04/02/2025 04/20/2025 documented as of this encounter Historical Medications * This list may reflect changes made after this encounter. nystatin (MYCOSTATIN) cream Apply topically. 04/09/2025 added in this encounter Care Teams Mesmerist Relationship Specialty Start Date End Date Physician, No Pcp PCP - General 03/30/25 documented as of this encounter
[2025-04-21 16:33] LABS: Anion Gap 12 (12-20); Blood Urea Nitrogen 16 mg/dL (9-16); Calcium 9.6 mg/dL (8.4-10.2); Carbon Dioxide 32 mmol/L (22-29); Chloride 103 mmol/L (96-108); Estimated Glomerular Filt Rate > 60; Potassium 3.6 mmol/L (3.3-5.1); Sodium 143 mmol/L (135-145)
--- OUTSIDE RECORDS SUMMARY | 2025-04-21 18:15 | XMS_ITS | Clinical Summary ---
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 Active hydroCHLOROthiazi de (MICROZIDE) 12.5 mg capsule Take 1 capsule (12.5 mg total) by mouth 1 (one) time each day. Active simvastatin (ZOCOR) 10 mg tablet Take 1 tablet (10 mg total) by mouth at bedtime. at bedtime Active dilTIAZem CD (CARDIZEM CD) 240 mg 24 hr capsule Take 1 capsule (240 mg total) by mouth 1 (one) time each day. Active ondansetron (ZOFRAN) 4 mg tabletIndications :Chronic migraine without aura without status migrainosus, not intractable 1 p.o. daily as needed for nausea associated with migraine 20 tablet 1 Active aspirin 81 mg EC tablet TAKE ONE TABLET BY MOUTH EVERY DAY 30 tablet 2 Active polyethylene glycol (MIRALAX) 17 gram packet Take 17 g by mouth 1 (one) time each day if needed for constipation. 510 g 025 2024 Active nystatin (MYCOSTATIN) cream Apply topically. 025 Active tiZANidine (ZANAFLEX) 2 mg tablet 1po hs PRN neck spasm 20 tablet 1 025 Active potassium chloride 20 mEq tablet extended release TAKE ONE TABLET BY MOUTH TWICE A DAY FOR 7 DAYS WITH FOOD 024 2024 Discontinued prochlorperazine (COMPAZINE) 10 mg tablet Take 1 tablet (10 mg total) by mouth every 6 (six) hours if needed for nausea. 025 2024 Discontinued ciprofloxacin (CIPRO) 500 mg tabletIndications :Acute diverticulitis Take 1 tablet (500 mg total) by mouth 2 (two) times a day for 7 days. 14 each 025 2024 Discontinued(S top Taking at Discharge) metroNIDAZOLE (FLAGYL) 500 mg tabletIndications :Acute diverticulitis Take 1 tablet (500 mg total) by mouth 3 (three) times a day for 7 days. Do not use mouth wash or consume alcohol until 48 hours after last dose 21 each 025 2024 Discontinued(S top Taking at Discharge) psyllium (METAMUCIL) 3.4 gram packet Take 1 packet by mouth 1 (one) time each day for 14 days. 14 packet 025 2024 dicyclomine (BENTYL) 10 mg capsuleIndication s:Colicky LLQ abdominal pain Take 1 capsule (10 mg total) by mouth 3 (three) times a day. 90 each 2 025 2024 Discontinued(T herapy completed) Active Problems Problem Noted Date Diagnosed Date Irritable bowel syndrome without diarrhea 2024 HLD (hyperlipidemia) 04/02/2025 HTN (hypertension) 04/02/2025 COPD (chronic obstructive pu lmonary disease) ([facility] V24, [facility] V28) 04/02/2025 Deaf 04/02/2025 Adenomatous polyp of colon 04/02/2025 Diverticulitis large intesti ne w/o perforation or abscess w/o bleeding 04/02/2025 Overview (04/02/2025): CT 01/[address] 10/[address] 08/[address] 03/[address] 03/[address] 03/2025 negative for diverticulitis Assessment & Plan (04/02/2025 4:28 PM EDT): History of uncomplicated diverticulitis Recent CT 03/30/2025 [facility] negative for diverticulitis Resolved Problems Problem Noted Date Diagnosed Date Resolved Date UTI (urinary tract infection) 03/30/2025 03/31/2025 Encounters Date Type Department Care Team Description 04/20/2025 8:30 AM EDT Office Visit [facility] [address] [facility] [address] [place] [phone] Paige Charles PA 04/02/2025 1:00 PM EDT Office Visit Gastroenterology - [address] [phone] Marjorie Taylor PA Colinarendra LLQ abdominal pain (Primary Dx); Diverticulitis large intestine w/o perforation or abscess w/o bleeding; Chronic idiopathic constipation 03/30/2025 1:52 PM EDT - 03/31/2025 1:13 PM EDT Hospital Encounter [facility] [address] [place] [phone] Kedar Gary MD Bukalo, Nermina, MD Jones, Christopher, MD Seralathan, Manikandan, MD Acute cystitis without hematuria (Primary Dx); Acute kidney injury (CMS/[facility] V24); Hypokalemia Discharge Disposition: Home or Self Care 03/29/2025 Telephone Gastroenterology - [address] [phone] Emir Leblanc MD 03/24/2025 Telephone Gastroenterology - [address] [phone] Emir Leblanc MD 03/24/2025 Telephone Gastroenterology - [address] [phone] Emir Leblanc MD 03/03/2025 10:00 AM EDT Procedure visit [facility] [address] [facility] [address] [place] [phone] Richard Osullivan MD Chronic migraine without aura without status migrainosus, not intractable (Primary Dx) from Last 3 Months Surgical History Surgery Date Site/Laterality Comments SHOULDER SURGERY Bilateral OTHER SURGICAL HISTORY Right right breast surgery COLONOSCOPY 11/29/2022 - 12/28/2022 10mm TA splenic flexure, sig tics (3 yr) Dr. Leblanc Medical History Medical History Date Comments Hypertension Deaf Migraines Diverticulitis Hyperlipidemia Family History Medical History Relation Name Comments Heart disease Brother Crohn's disease Sister Relation Name Status Comments Brother Sister Social History Tobacco Use Types Packs/Day Years [...] on file Sexual Orientation Not on file Obstetrics History Last Filed Vital Signs Vital Sign Reading Time Taken Comments Blood Pressure 188/86 04/20/2025 8:39 AM EDT Pulse 69 04/20/2025 8:39 AM EDT Temperature 35.9 C (96.6 F) 04/20/2025 8:39 AM EDT Respiratory Rate 16 03/31/2025 1:00 PM EDT Oxygen Saturation 99% 04/20/2025 8:39 AM EDT Inhaled Oxygen Concentration - - Weight 97.4 kg (214 lb 12.8 oz) 025 12:57 PM EDT Height 162.6 cm (5' 4 ) 04/02/2025 12:5 7 PM EDT Body Mass Index 36.87 04/02/2025 12:57 PM EDT Plan of Treatment Upcoming Encounters Date Type Department Care Team (Late st Contact Info) Description 05/19/2025 11:00 AM EST Procedure visit [facility] [address] [facility] [address] [place] [phone] Richard Osullivan MD [address] [place] [address] 07/21/2025 11:00 AM EST Office Visit [facility] [address] [facility] [address] [place] [phone] Paige Charles PA [address] [place] [address] Health Maintenance Due Date Last Done Comments Breast Cancer Screening 1960 Pneumococcal Vaccine: 50+ Years (1 of 2 - PCV) 02/06/1979 Cervical Cancer Screening: P ap Smear 02/06/1981 RSV Immunization Adult Patients (1 - Risk 50-74 years 1-dose series) 02/06/2010 Zoster Vaccines (1 of 2) 02/06/2010 Cholesterol Screening (Lipid Panel) 06/02/2022 Hepatitis C Screening 06/02/2022 Medicare Annual Wellness Visit 06/02/2022 Osteoporosis Screening (Bone Density Screening) 06/02/2022 Social Influencers of Health Screening 06/02/2022 Depression Screening 07/01/2024 COVID-19 Vaccine (4 - 2024-2 6 season) 2025 08/16/2021, 01/21/2021, 12/20/2020 Influenza Vaccine (#1) 2025 Falls Risk Assessment 03/31/2026 03/31/2025 Hypertension/CHF/CAD Annual BMP Blood Test 03/31/2026 03/31/2025, 03/30/2025, 03/30/2025 DTaP,Tdap,and Td Vaccines (3 - Td or Tdap) 12/01/2032 12/01/2022, 12/27/2007 Colorectal Cancer Screening: Colonoscopy 10/27/2034 10/27/2024 HIB Vaccines Aged Out No longer eligi [...] Procedure Name Priority Date/Time Associated Diagnosis Comments ECG ANNOTATED 04/01/2025 MAGNESIUM Routine 03/31/2025 6:14 AM EDT COMPLETE BLOOD COUNT Routine 03/31/2025 6:14 AM EDT BASIC METABOLIC PANEL Routine 03/31/2025 6:14 AM EDT BASIC METABOLIC PANEL STAT 03/30/2025 11:[address] ABDOMEN PELVIS W CONTRAST STAT 03/30/2025 5:04 PM EDT RHYTHM ECG, REPORT Routine 03/30/2025 3: 06 PM EDT ECG 12-LEAD STAT 03/30/2025 3:05 PM EDT AREVALO URINE CULTURE TUBE STAT 03/30/2025 2:46 PM EDT URINALYSIS WITH REFLEX MICROSCOPIC AND CULTURE STAT 03/30/2025 2:46 PM EDT URINALYSIS WITH REFLEX MICROSCOPIC AND CULTURE STAT 03/30/2025 2:46 PM EDT CULTURE URINE STAT 03/30/2025 2:46 PM EDT LACTATE, WITH REFLEX STAT 03/30/2025 2:45 PM EDT MAGNESIUM STAT Add-on 03/30/2025 1:36 PM EDT CBC WITH AUTO DIFFERENTIAL STAT 03/30/2025 1:36 PM EDT COMPREHENSIVE METABOLIC PANEL STAT 03/30/2025 1:36 PM EDT CBC AND DIFFERENTIAL STAT 03/30/2025 1:36 PM EDT EXTERNAL COLONOSCOPY REPORT Routine 10/27/2024 1:56 PM EDT from Last 3 Months or Most Recently Relevant to Health Maintenance Results * ECG-Annotated (04/01/2025) us Provider Onbase MD ECG ORDERABLES Final Result * Complete blood count (03/31/2025 6:14 AM EDT) WBC 10.7 4.8 - 10.8 K/mcL LAB HEMETOLOGY METHOD 03/31/2025 7:44 AM EDT [facility] RBC 4.20 3.80 - 4.80 M/mcL LAB HEMETOLOGY METHOD 03/31/2025 7:44 AM EDT [facility] Hemoglobin 13.1 11.5 - 16.0 g/dL LAB HEMETOLOGY METHOD 03/31/2025 7:44 AM EDT [facility] Hematocrit 38.1 35.0 - 47.0 % LAB HEMETOLOGY METHOD 03/31/2025 7:44 AM EDT [facility] MCV 91.1 79.0 - 98.0 FL LAB HEMETOLOGY METHOD 03/31/2025 7:44 AM EDT [facility] MCH 31.3 27.0 - 32.0 pcg LAB HEMETOLOGY METHOD 03/31/2025 7:44 AM EDT [facility] MCHC 34.4 32.0 - 37.0 g/dL LAB HEMETOLOGY METHOD 03/31/2025 7:44 AM EDT [facility] RDW 12.1 11.0 - 15.0 % LAB HEMETOLOGY METHOD 03/31/2025 7:44 AM EDT [facility] Platelets 277 130 - 400 K/mcL LAB HEMETOLOGY METHOD 03/31/2025 7:44 AM EDT [facility] MPV 10.3 7.0 - 11.0 FL LAB HEMETOLOGY METHOD 03/31/2025 7:44 AM EDT [facility] NRBC 0.0 <1.0 % LAB HEMETOLOGY METHOD 03/31/2025 7:44 AM EDT [facility] NRBC Absolute 0.00 <0.10 K/mcL LAB HEMETOLOGY METHOD 03/31/2025 7:44 AM EDT [facility] Blood Venous blood specimen / Unknown Venipuncture / Unknown 03/31/2025 6:14 AM EDT 03/31/2025 7:09 AM EDT Yris Cason MD LAB BLOOD ORDERABLES Final Res ult Performing Organization Address City/[facility]/ZIP Co de Phone Number [facility] [address] [place] [address], [place] [phone] * Magnesium (03/31/2025 6:14 AM EDT) Only the most recent of2 resultswithin the time period is included. Magnesium 2.1 1.9 - 2.6 mg/dL LAB CHEMISTRY METHOD 03/31/2025 8:07 AM EDT [facility] Blood Venous blood specimen / Unknown Venipuncture / Unknown 03/31/2025 6:14 AM EDT 03/31/2025 7:09 AM EDT Rima PARNELL LAB BLOOD ORDERABLES Final R esult Performing Organization Address City/[facility]/ZIP Co de Phone Number [facility] [address] [place] [address], [place] [phone] * (ABNORMAL) Basic metabolic panel (03/31/2025 6:14 AM EDT) Only the most recent of2 resultswithin the time period is included. Sodium 137 133 - 145 mmol/L LAB CHEMISTRY METHOD 03/31/2025 8:07 AM [facility] Potassium 3.5 3.5 - 5.5 mmol/L LAB CHEMISTRY METHOD 03/31/2025 8:07 AM [facility] Chloride 99 96 - 110 mmol/L LAB CHEMISTRY METHOD 03/31/2025 8:07 AM [facility] CO2 33(H) 21 - 32 mmol/L LAB CHEMISTRY METHOD 03/31/2025 8:07 AM [facility] Anion Gap 5 3 - 11 LAB CHEMISTRY METHOD 03/31/2025 8:07 AM [facility] Glucose 100 70 - 100 mg/dL LAB CHEMISTRY METHOD 03/31/2025 8:07 AM [facility] BUN 15 5 - 25 mg/dL LAB CHEMISTRY METHOD 03/31/2025 8:07 AM [facility] Creatinine 1.06 0.50 - 1.10 mg/dL LAB CHEMISTRY METHOD 03/31/2025 8:07 AM [facility] eGFR 58(L) >=60 mL/min/1. 73m2 LAB CHEMISTRY METHOD 03/31/2025 8:07 AM [facility] Comment:Calculation based on the Chronic Kidney Disease Epidemiology Collaboration (CKD-EPI) equation refit without adjustment for race. BUN/Creatinine Ratio 14.2 LAB CHEMISTRY METHOD 03/31/2025 8:07 AM [facility] Calcium 9.4 8.5 - 10.5 mg/dL LAB CHEMISTRY METHOD 03/31/2025 8:07 AM [facility] Blood Venous blood specimen / Unknown Venipuncture / Unknown 03/31/2025 6:14 AM EDT 03/31/2025 7:09 AM EDT us Yris Caosn MD LAB BLOOD ORDERABLES Final Res ult [facility] ([facility]) [facility] [address] [place] [address], [place] [phone] * CT Abdomen Pelvis w Contrast (03/30/2025 5:04 PM EDT) Anatomical Region Laterality Modality Body Computed Tomogra phy 03/30/2025 5:34 PM EDT Impressions 03/30/2025 5:34 PM EDT Impression: Diverticulosis without signs of diverticulitis. This document has been electronically signed by: Kenneth Ruiz MD on 03/30/2025 17:34:41 Narrative 03/30/2025 5:34 PM EDT INDICATION: Diffuse abdm pain, h/o diverticulitis Exam: CT Abdomen and Pelvis With IV Contrast Comparison: CT/KO/OT/MT/SR - ABDOMEN AND PELVIS C+ CT - 04/17/2023 12:51 PM EDT Findings: The liver density is homogeneous with fatty infiltration No biliary abnormalities The spleen is normal in size No pancreatic ductal dilatation No hydronephrosis. A benign 3.8 cm right renal cortical cyst is present. Normal bowel caliber. Scattered diverticula are present without signs of diverticulitis. The appendix is normal. No free fluid/free air There is arterial vascular calcified plaque Bladder outline is smooth No suspicious skeletal lesions Procedure Note Kenneth Ruiz MD - 03/30/2025 INDICATION: Diffuse abdm pain, h/o diverticulitis Exam: CT Abdomen and Pelvis With IV Contrast Comparison: CT/KO/OT/MT/SR - ABDOMEN AND PELVIS C+ CT - 04/17/2023 12:51 PM EDT Findings: The liver density is homogeneous with fatty infiltration No biliary abnormalities The spleen is normal in size No pancreatic ductal dilatation No hydronephrosis. A benign 3.8 cm right renal cortical cyst is present. Normal bowel caliber. Scattered diverticula are present without signs of diverticulitis. The appendix is normal. No free fluid/free air There is arterial vascular calcified plaque Bladder outline is smooth No suspicious skeletal lesions IMPRESSION: Impression: Diverticulosis without signs of diverticulitis. This document has been electronically signed by: Kenneth Ruiz MD on 03/30/2025 17:34:41 Kedar Gary MD IMG CT PROCEDURES Final Result * RHYTHM ECG, REPORT (03/30/2025 3:06 PM EDT) Narrative Kedar Gary MD - 03/30/2025 3:06 PM EDT Kedar Gary MD 04/02/2025 12:28 AM ECG Rhythm Interpretation and Report Date/Time: 03/30/2025 3:06 PM Performed by: Kedar Gary MD Authorized by: Kedar Gary MD ECG interpreted by ED Physician in the absence of a construction trench digger: yes Interpretation: Interpretation: normal Details: Normal sinus rhythm with a ventricular rate of 62 bpm. Normal MT, QRS, QT, axis. No acute ischemic changes. No changes of hypokalemia. Kedar Gary MD ECG ORDERABLES Final Result * ECG 12 lead (03/30/2025 3:05 PM EDT) Ventricular Rate ECG 62 BPM GEMUSE Atrial Rate 62 BPM GEMUSE P-R Interval 152 ms GEMUSE QRS Duration 98 ms GEMUSE Q-T Interval 438 ms GEMUSE QTc 444 ms GEMUSE P Wave [place] 48 degrees GEMUSE R [place] -11 degrees GEMUSE T [place] 75 degrees GEMUSE ECG Interpretation Normal sinus rhythm Normal ECG When compared with ECG of 19-SEP-1997 18:53, Nonspecific T wave abnormality no longer evident in Inferior leads T wave amplitude has decreased in Anterior leads Confirmed by Edwin BROWNE JAMES ([id number]) on 03/30/2025 4:36:05 PM GEMUSE 03/30/2025 3:05 PM EDT 03/30/2025 4:36 PM EDT Kedar Gary MD ECG ORDERABLES Final Result GEMUSE * (ABNORMAL) Urinalysis with reflex microscopic and culture (03/30/2025 2:46 PM EDT) Specific [place] Urine 1.022 1.003 - 1.030 LAB URINALYSIS - AUTOMATED METHOD 03/30/2025 3:20 PM [facility] pH, Urine 5.0 5.0 - 8.0 pH LAB URINALYSIS - AUTOMATED METHOD 03/30/2025 3:20 PM [facility] Leukocytes, Urine Moderate(A) Negative LAB URINALYSIS - AUTOMATED METHOD 03/30/2025 3:20 PM [facility] Nitrite, Urine Positive(A) Negative LAB URINALYSIS - AUTOMATED METHOD 03/30/2025 3:20 PM [facility] Protein, Urine 100(A) <=Trace mg/dL LAB URINALYSIS - AUTOMATED METHOD 03/30/2025 3:20 PM [facility] Glucose, Urine Negative Negative mg/dL LAB URINALYSIS - AUTOMATED METHOD 03/30/2025 3:20 PM [facility] Ketones, Urine 15(A) Negative mg/dL LAB URINALYSIS - AUTOMATED METHOD 03/30/2025 3:20 PM [facility] Urobilinogen , Urine 1.0 0.2 - 1.0 mg/dL LAB URINALYSIS - AUTOMATED METHOD 03/30/2025 3:20 PM [facility] Bilirubin, Urine Small(A) Negative LAB URINALYSIS - AUTOMATED METHOD 03/30/2025 3:20 PM [facility] Blood, Urine Negative Negative LAB URINALYSIS - AUTOMATED METHOD 03/30/2025 3:20 PM [facility] RBC, Urine 5.0(H) 0 - 4 /HPF LAB URINALYSIS - AUTOMATED METHOD 03/30/2025 3:20 PM [facility] WBC, Urine 75.2(H) 0 - 4 /HPF LAB URINALYSIS - AUTOMATED METHOD 03/30/2025 3:20 PM EDT [facility] Squamous Epithelial, Urine >100(H) 0 - 60 /LPF LAB URINALYSIS - AUTOMATED METHOD 03/30/2025 3:20 PM EDT [facility] Bacteria, Urine Moderate(A) Negative /HPF LAB URINALYSIS - AUTOMATED METHOD 03/30/2025 3:20 PM EDT [facility] Hyaline Casts, Urine 46.6(H) 0 - 3 /LPF LAB URINALYSIS - AUTOMATED METHOD 03/30/2025 3:20 PM EDT [facility] Urine Urine specimen obtained by clean catch procedure / Unknown Non-blood Collection / Unknown 03/30/2025 2:46 PM EDT 03/30/2025 2:50 PM EDT Kedar Gary MD LAB URINE ORDERABLES Final Res ult Performing Organization Address City/[facility]/ZIP Co de Phone Number [facility] [address] [place] [address], [place] [phone] * Arevalo urine culture tube (03/30/2025 2:46 PM EDT) Extra Tube Hold for add-ons. 03/30/2025 4:01 PM EDT [facility] Comment:Auto resulted. Urine Urine specimen obtained by clean catch procedure / Unknown Non-blood Collection / Unknown 03/30/2025 2:46 PM EDT 03/30/2025 2:50 PM EDT us Kedar Gary MD LAB URINE ORDERABLES Final Res ult Performing Organization Address City/[facility]/ZIP Co de Phone Number [facility] [address] [place] [address], [place] [phone] * Culture urine (03/30/2025 2:46 PM EDT) Culture, Urine No growth 03/31/2025 7:38 AM EDT [facility] Urine Urine specimen obtained by clean catch procedure / Unknown Non-blood Collection / Unknown 03/30/2025 2:46 PM EDT 03/30/2025 3:20 PM EDT Kedar Gary MD LAB MICROBIOLOGY - GENERAL ORD ERABLES Final Result Performing Organization Address [facility]/ZIP Co de Phone Number [facility] [address] [place] [address], [place] [phone] * Lactate, with reflex (03/30/2025 2:45 PM EDT) [facility] LACTIC ACID 1.8 0.4 - 2.0 mmol/L LAB CHEMISTRY METHOD 03/30/2025 3:27 PM EDT [facility] Blood Venous blood specimen / Unknown Venipuncture / Unknown 03/30/2025 2:45 PM EDT 03/30/2025 2:50 PM EDT Kedar Gary MD LAB BLOOD ORDERABLES Final Res ult Performing Organization Address [facility]/ZIP Co de Phone Number [facility] [address] [place] [address], [place] [phone] * (ABNORMAL) CBC auto differential (03/30/2025 1:36 PM EDT) [facility] WBC 14.4(H) 4.8 - 10.8 K/[facility] LAB HEMETOLOGY METHOD 03/30/2025 1:54 PM EDT [facility] RBC 5.30(H) 3.80 - 4.80 M/[facility] LAB HEMETOLOGY METHOD 03/30/2025 1:54 PM EDT [facility] Hemoglobin 16.8(H) 11.5 - 16.0 g/dL LAB HEMETOLOGY METHOD 03/30/2025 1:54 PM EDT [facility] Hematocrit 47.1(H) 35.0 - 47.0 % LAB HEMETOLOGY METHOD 03/30/2025 1:54 PM EDT [facility] MCV 89.5 79.0 - 98.0 FL LAB HEMETOLOGY METHOD 03/30/2025 1:54 PM EDT [facility] MCH 31.9 27.0 - 32.0 pcg LAB HEMETOLOGY METHOD 03/30/2025 1:54 PM EDT [facility] MCHC 35.7 32.0 - 37.0 g/dL LAB HEMETOLOGY METHOD 03/30/2025 1:54 PM EDT [facility] RDW 11.9 11.0 - 15.0 % LAB HEMETOLOGY METHOD 03/30/2025 1:54 PM EDT [facility] Platelets 383 130 - 400 K/mcL LAB HEMETOLOGY METHOD 03/30/2025 1:54 PM EDT [facility] MPV 9.8 7.0 - 11.0 FL LAB HEMETOLOGY METHOD 03/30[facility]2025 1:[facility] NRBC 0.0 <1.0 % LAB HEMETOLOGY METHOD 03/30/2025 1:[facility] NRBC Absolute 0.00 <0.10 K/mcL LAB HEMETOLOGY METHOD 03/30/2025 1:54 PM EDT [facility] Neutrophils Relative 76.0 % LAB HEMETOLOGY METHOD 03/30/2025 1:54 PM EDT [facility] Lymphocytes Relative 16.1 % LAB HEMETOLOGY METHOD 03/30/2025 1:54 PM EDT [facility] Monocytes Relative 6.8 % LAB HEMETOLOGY METHOD 03/30/2025 1:54 PM EDT [facility] Eosinophils Relative 0.3 % LAB HEMETOLOGY METHOD 03/30/2025 1:54 PM EDT [facility] Basophils Relative 0.4 % LAB HEMETOLOGY METHOD 03/30/2025 1:54 PM EDT [facility] Immature Granulocytes Relative 0.4 % LAB HEMETOLOGY METHOD 03/30/2025 1:54 PM EDT [facility] Neutrophils Absolute 10.96(H) 1.50 - 7.00 K/mcL LAB HEMETOLOGY METHOD 03/30/2025 1:54 PM EDT [facility] Lymphocytes Absolute 2.33 1.00 - 5.00 K/mcL LAB HEMETOLOGY METHOD 03/30/2025 1:54 PM EDT [facility] Monocytes Absolute 0.98 0.20 - 1.00 K/mcL LAB HEMETOLOGY METHOD 03/30/2025 1:54 PM EDT [facility] Eosinophils Absolute 0.04 0.00 - 0.50 K/mcL LAB HEMETOLOGY METHOD 03/30/2025 1:54 PM EDT [facility] Basophils Absolute 0.06 0.00 - 0.20 K/mcL LAB HEMETOLOGY METHOD 03/30/2025 1:54 PM EDT [facility] Immature Granulocytes Absolute 0.06(H) 0.00 - 0.03 K/mcL LAB HEMETOLOGY METHOD 03/30/2025 1:54 PM EDT [facility] Blood Venous blood specimen / Unknown Venipuncture / Unknown 03/30/2025 1:36 PM EDT 03/30/2025 1:44 PM EDT us Kedar Gary MD LAB BLOOD ORDERABLES Final Res ult [facility] [address] [place] [address], * (ABNORMAL) Comprehensive metabolic panel (03/30/2025 1:36 PM EDT) Sodium 135 133 - 145 mmol/L LAB CHEMISTRY METHOD 03/30/2025 2:45 PM [facility] Potassium 2.9(LL) 3.5 - 5.5 mmol/L LAB CHEMISTRY METHOD 03/30/2025 2:45 PM [facility] Chloride 92(L) 96 - 110 mmol/L LAB CHEMISTRY METHOD 03/30/2025 2:45 PM [facility] CO2 34(H) 21 - 32 mmol/L LAB CHEMISTRY METHOD 03/30/2025 2:45 PM [facility] Anion Gap 9 3 - 11 LAB CHEMISTRY METHOD 03/30/2025 2:45 PM [facility] Glucose 142(H) 70 - 100 mg/dL LAB CHEMISTRY METHOD 03/30/2025 2:45 PM [facility] BUN 15 5 - 25 mg/dL LAB CHEMISTRY METHOD 03/30/2025 2:45 PM [facility] Creatinine 1.52(H) 0.50 - 1.10 mg/dL LAB CHEMISTRY METHOD 03/30/2025 2:45 PM [facility] eGFR 38(L) >=60 mL/min/1. 73m2 LAB CHEMISTRY METHOD 03/30/2025 2:45 PM [facility] Comment:Calculation based on the Chronic Kidney Disease Epidemiology Collaboration (CKD-EPI) equation refit without adjustment for race. BUN/Creatinine Ratio 9.9 LAB CHEMISTRY METHOD 03/30/2025 2:45 PM [facility] Calcium 10.1 8.5 - 10.5 mg/dL LAB CHEMISTRY METHOD 03/30/2025 2:45 PM [facility] AST (SGOT) 68(H) 10 - 42 unit/L LAB CHEMISTRY METHOD 03/30/2025 2:45 PM [facility] ALT (SGPT) 59 10 - 60 unit/L LAB CHEMISTRY METHOD 03/30/2025 2:45 PM EDT [facility] Alkaline Phosphatase 77 42 - 121 unit/L LAB CHEMISTRY METHOD 03/30/2025 2:45 PM EDT [facility] Total Protein 7.6 6.0 - 8.0 g/dL LAB CHEMISTRY METHOD 03/30/2025 2:45 PM EDT [facility] Albumin 4.4 3.2 - 5.0 g/dL LAB CHEMISTRY METHOD 03/30/2025 2:45 PM EDT [facility] Total Bilirubin 1.5(H) 0.0 - 1.4 mg/dL LAB CHEMISTRY METHOD 03/30/2025 2:45 PM EDT [facility] Blood Venous blood specimen / Unknown Venipuncture / Unknown 03/30/2025 1:36 PM EDT 03/30/2025 1:44 PM EDT Kedar Gary MD LAB BLOOD ORDERABLES Final Res ult [facility] [address] [place] [address], * External Colonoscopy Report (10/27/2024 1:56 PM EDT) Anatomical Region Laterality Modality Endoscopy Historical Provider GI~PROCEDURE ORDERABLES F inal Result from Last 3 Months or Most Recently Relevant to Health Maintenance Insurance MEDICARE [place]ICA[place] - [place] Advance Directives * Full Code - Confirmed (Latest Code Status on File) Date Activated Date Inactivated Comments 03/30/2025 8:27 PM 03/31/2025 3:[address] [facility] was ascertained in the following way: Code status discussion: discussion with patient To update the patient's code status, place a code status order. Do not modify or discontinue any currently active code status orders. * Full Code - Default Date Activated Date Inactivated Comments 03/30/2025 5:49 PM 03/30/2025 8:27 PM This is orde r is used when code status has not been discussed with the patient, or code status is otherwise unknown/unconfirmed To update the patient's code status, place a code status order. Do not modify or discontinue any currently active code status orders. Care Teams Tour Bus Driver/Guide Relationship Specialty Start Date End Date Physician, No Pcp PCP - General 03/30/25
== END 2025-04-21 11:51 | disposition home or self-care (01) ==
LOC: HO.HMGCLDS 11:50
PROVIDERS: PCP Internal Medicine; Visit Provider Internal Medicine
DX: I10 Essential (primary) hypertension (principal); K57.92 Diverticulitis of intestine, part unspecified, without perforation or abscess without bleeding; Z79.82 Long term (current) use of aspirin; Z79.899 Other long term (current) drug therapy
CPT/HCPCS: 36415; 80048; 99212

== ENCOUNTER 2025-04-21 11:50 | Outpatient (AMB) | payer MEDICARE, MEDICAID, SELFPAY ==
[2025-04-21 11:53] VITALS: BP 120/64; PULSE 74; O2SAT 98; BMI 36.7
--- NOTE | 2025-04-21 11:53 | A.OFFPC_ITS ---
Vital Signs 04/21/25 11:53 Height 5 ft 4 in Weight 214 lb BMI 36.7 BP 120/64 Blood Pressure Location Lt brachial Position Sitting Pulse 74 Pulse Source Pulse Oximeter Pulse Oximetry (%) 98 Oxygen Delivery Method Room Air Intake Visit Reasons: 7-10 day follow up Damage Inside Adjuster Required: Yes Damage Inside Adjuster Language: Skid Man Name: STEFAN DOMINIQUE [id number] Allergies penicillin V Allergy (Unknown, Verified 04/09/25 09:39) N/V Penicillins (PENICILLINS) Allergy (Unknown, Verified 04/09/25 09:39) IN HISTORY AND DOESN'T REMEMBER carisoprodol (From [employer]) Adverse Reaction (Intermediate, Verified 04/09/25 09:39) VOMITED amoxicillin Allergy (Unknown, Uncoded 02/24/25 11:10) GI upset Medication List - Last Reconciled 04/21/25 by Lupillo Vázquez MD aspirin 81 mg PO DAILY blood pressure monitor As directed [Cane with 4 prongs As directed] [Cpap machine Use As directed] diltiazem HCl CD 240 mg PO DAILY hydrochlorothiazide 12.5 mg PO DAILY losartan 50 mg PO DAILY nystatin 1 appl topical .qhs 30 days potassium chloride 40 mEq (15 mL) PO ONCE 5 days prochlorperazine maleate 10 mg PO BID PRN 10 days simvastatin 10 mg PO BEDTIME Tobacco use date assessed: 02/24/25 Dental Screening Dental Screen Date: 10/13/24 HPI 7-10 day follow up HPI Details Follow-up from last week Generalized abdominal discomfort is better Patient is eating light bland diet Able to move her stools last BM this morning without any pain or bleeding She requested referral to Dr. Leblanc [facility], patient says that her appointment is it until next year She would like to switch the referral to Dr. Alston office which I have placed Labs done few days ago showed GFR of 58, we will be repeating labs again Patient have a longstanding history of hypertension however blood pressure is well-controlled today at 120/64 PFSH Medical History Thoracic disc herniation Generalized arthritis Back pain Urinary urgency Incomplete emptying of bladder Abscess of breast, right COPD (chronic obstructive pulmonary disease) Deafness Hyperlipidemia Palpitations IBS (irritable bowel syndrome) Lipid disorder Hypertension, essential Surgical History History of surgery History of removal of cyst History of colonoscopy Family History Father Dementia Mother No problems noted. Other Mental health disorder Social History Housing: Apartment Alcohol intake: current Alcohol intake frequency: 0-2 drinks per day Patient Tobacco Use Status: Current everyday Tobacco user Tobacco use type: Cigarette Cigarettes Per Day: 10 e-Cigarette/Vaping Use: Never Used Substance Use Type: Marijuana Advance Directives Date on File: 09/13/22 service: No Current occupational status: unemployed and retired Sexual orientation: Straight/Heterosexual Gender identity: Female Cognitive needs: No Hearing needs: Yes Vision needs: Yes Questionnaire Thrive Questionnaire Date Thrive assessed: 04/09/25 I am a: Patient What is your living situation today?: I have a steady place to live Within the past 12 months, did the food you bought not last and you didn't have the money to get more?: Sometimes True THRIVE Score: 1 MARK ANTHONY-7 AMB Questionnaire MARK ANTHONY-7 Date MARK ANTHONY - 7 assessed: 10/13/24 Source: Developed by Drs. Dejan Cruz, Louise Gomez, Leodan Harrison and colleagues, with an educational maria eugenia from [employer]. Review of Systems Const Denies chills and Denies fever(s) ENT Denies epistaxis and Denies nasal discharge Card Denies chest pain Resp Denies chest congestion, Denies cough and Denies hemoptysis GI Denies diarrhea and Denies nausea Skin/Breast Denies rash Neuro Reports no additional complaints Psych Reports no additional complaints Endo Reports no additional complaints Physical exam (Primary Care) Vital Signs: Last Vital Signs Pulse 74 04/21/25 11:53 BP 120/64 04/21/25 11:53 Pulse Ox 98 04/21/25 11:53 Oxygen Delivery Method Room Air 04/21/25 11:53 BMI result Body Mass Index 36.7 Tobacco/Smoking Status: Tobacco use Status Tobacco use date assessed 02/24/25 04/21/25 11:53 Patient Tobacco Use Status Current everyday Tobacco 04/21/25 11:53 Tobacco use type Cigarette 04/21/25 11:53 e-Cigarette/Vaping Use Never Used 04/21/25 11:53 Thrive Assessment: Date of Thrive Assessment Date Thrive assessed 04/09/25 04/21/25 11:53 Const General: cooperative, comfortable and no acute distress Orientation/consciousness: patient oriented x3 HENMT Head: Yes normocephalic Eyes General: appearance normal, both eyes and all related structures Neck Neck: Yes supple Resp Effort & Inspection: normal respiratory effort, no cough and no stridor Cardio Rhythm: regular rhythm Heart sounds: S1 normal heart sound present and S2 normal heart sound present GI Other: Abdomen soft bowel sounds positive no guarding no rebound Skin General skin exam: turgor normal Neuro General: patient oriented x3, tone normal and moves all extremities Extrem Right lower extremity: no edema Left lower extremity: no edema Coding Level of Care Code Est Pt Level 3 (41731) Diagnoses Recurrent diverticulitis K57.92 Assessment & Plan Assessment & Plan (1) Recurrent diverticulitis: Code(s): K57.92 - Diverticulitis of intestine, part unspecified, without perforation or abscess without bleeding Category: Medical Plan Follow-up from last week Generalized abdominal discomfort is better, she has a history of recurrent diverticulitis Her pain was more so on the left side Patient is eating light bland diet Able to move her stools last BM this morning without any pain or bleeding She requested referral to Dr. [facility]bl[facility], patient says that her appointment is it until next year She would like to switch the referral to Dr. Alston office which I have placed Labs done few days ago showed GFR of 58, we will be repeating labs again Patient have a longstanding history of hypertension however blood pressure is well-controlled today at 120/64 Orders: Referrals Gastroenterology Referral K57.92 - Diverticulitis of intestine, part unspecified, without perforation or abscess without bleeding
== END 2025-04-21 12:33 | disposition home or self-care (01) ==
LOC: HO.HMCC 11:51
PROVIDERS: PCP Internal Medicine; Visit Provider Internal Medicine
DX: K57.92 Diverticulitis of intestine, part unspecified, without perforation or abscess without bleeding (principal)

== ENCOUNTER 2025-05-12 09:29 | Outpatient (AMB) | payer MEDICARE, MEDICAID, SELFPAY ==
[2025-05-12 09:33] VITALS: BP 132/94; PULSE 50; O2SAT 98; BMI 36.8
--- NOTE | 2025-05-12 09:33 | MHC.OFFVIS ---
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 The patient has a known diagnosis of sleep apnea. Titration in chart( Trialed at 4-10cm. Apnea Eliminated at 10cm with full face mask F20(M)). Compliance Nurse Required: Yes Accompanied by: Self / Same As Patient Allergies penicillin V Allergy (Unknown, Verified 05/12/25 09:38) N/V Penicillins (PENICILLINS) Allergy (Unknown, Verified 05/12/25 09:38) IN HISTORY AND DOESN'T REMEMBER carisoprodol (From [employer]) Adverse Reaction (Intermediate, Verified 05/12/25 09:38) VOMITED amoxicillin Allergy (Unknown, Uncoded 02/24/25 11:10) GI upset HPI Comments Details: 65 year old deaf female presents for an evaluation of sleep apnea, she is referred to us by Dr. Vázquez. HST and Titration study is reviewed with pt, will start her on [id number] cpap therapy with heated tubing,and Air Fit N20 full face mask medium sized. 03/30/2025 ED [facility] note recent h/o Diverticulosis, fluids and discharge. 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 She snores loudly and wakes herself up, denies gasping for air. She had a stroke 6 years ago, however denies symptoms.Headaches have improved with botox treatments, she usually sleeps it off. She denies acid reflux, denies parasomnias, denies RLS symptoms. Her memory is poor, she forgets names, conversations, daily tasks, uses phone reminders. She smokes 1pk of cigarettes a week, and MJ daily. Alcohol use has decreased due to recent episode of diverticulosis. She does not walk or exercise daily, however is trying to be more mindful of water intake. [facility] Medical History Thoracic disc herniation Generalized arthritis Back pain Urinary urgency Incomplete emptying of bladder Abscess of breast, right COPD (chronic obstructive pulmonary disease) Deafness Hyperlipidemia Palpitations IBS (irritable bowel syndrome) Lipid disorder Hypertension, essential Surgical History History of surgery History of removal of cyst History of colonoscopy Family History Father Dementia Mother No problems noted. Other Mental health disorder Social History Housing: Apartment Alcohol intake: current Alcohol intake frequency: 0-2 drinks per day Patient Tobacco Use Status: Current everyday Tobacco user Tobacco use type: Cigarette Cigarettes Per Day: 10 e-Cigarette/Vaping Use: Never Used Substance Use Type: Marijuana Advance Directives Date on File: 09/13/22 service: No Current occupational status: unemployed and retired Sexual orientation: Straight/Heterosexual Gender identity: Female Cognitive needs: No Hearing needs: Yes Vision needs: Yes Physical Exam Vital Signs: Last Vital Signs Pulse 50 05/12/25 09:33 BP 132/94 H 05/12/25 09:33 Pulse Ox 98 05/12/25 09:33 Oxygen Delivery Method Room Air 05/12/25 09:33 BMI result Body Mass Index 36.8 Const Other: pt is deaf General: cooperative, comfortable and no acute distress Nutritional Appearance: average body habitus and overweight Orientation/consciousness: patient oriented x3 Limitations: other limitations (deaf bilateral hearing deficits) HEENT Face and sinus: Yes face symmetric Teeth and gingiva: other (mallampti score is 4) Eyes Pupils: Equal, round and reactive pupils present Neck Neck: Yes full ROM Resp Effort & Inspection: normal respiratory effort and able to speak in complete sentences Neuro General: patient oriented x3 and moves all extremities Cranial nerves: Yes Equal, round and reactive pupils present, Yes Normal accommodation reflex present, Yes Normal facial strength present, Yes Midline tongue present, Yes Ability to bilaterally rotate head present and Yes Ability to bilaterally elevate shoulders present Cognition (Neuro): normal cognition Gait exam (Neuro): Normal gait present Motor exam (neuro): 5/5 motor strength present throughout and Normal motor muscle tone present throughout Psych Other: speech is difficult to understand as pt is deaf Appearance: well kempt Speech and movement: Slowed speech present (Psych) Attitude: cooperative Results Reviewed Results Reviewed: Titrtation study 10/2024 ED note [place] 03/2025 Assessment & Plan Assessment & Plan (1) NEDA on CPAP: Code(s): G47.33 - Obstructive sleep apnea (adult) (pediatric); Z99.89 - Dependence on other enabling machines and devices Category: Medical (2) Bilateral headaches: Code(s): R51.9 - Headache, unspecified Category: Medical (3) Hearing impaired: Code(s): H91.90 - Unspecified hearing loss, unspecified ear Category: Medical Qualifiers: Hearing loss type: unspecified Laterality: bilateral Qualified Code(s): H91.93 - Unspecified hearing loss, bilateral Plan NEDA Titration study reviewed with pt today. Moderate NEDA. 10/2024 titration completed. Will start therapy at [id number], and Airfit N20 Med sized full face mask, heated hoses, chinstraps. Headaches will monitor. Hearing Impaired Call pt at home on [phone], wait for the steam finisher to come on line then they will contact her and leave message for her if not available. F/u in 3months Patient Instructions: Sleep Hygiene provided: set a scheduled bedtime and wake time to help regulate the circadian rhythm and balance the release of pituitary hormones. Sleep in a dark room, temperatures below 68 degrees, and no devices n bed. Limit caffeinated products 6 hours prior to bed, and limit fluids 2-4 hours prior to bed. Gentle night yoga, diffusing essential oils, and playing soft music can be relaxing. Coding Level of Care Code New Pt Level 4 (27544) Diagnoses NEDA on CPAP G47.33; Z99.89 Bilateral headaches R51.9 Bilateral hearing loss, unspecified hearing loss type H91.93 Hearing loss type: unspecified Laterality: bilateral Sleep Questionnaire Difficulty falling asleep: No Difficulty staying asleep?: Yes Number of arousals: 3x Snoring: Yes Witnessed apneas: No Gasping arousals: No Nocturia: Yes GERD: No Vivid dreams: No Acting out dreams: No Abnormal behavior in sleep: No Abnormal movements in sleep: No Morning headaches: Yes Excessive daytime sleepiness: Yes Daytime naps: Yes (1-2 not daily) Restless legs: No Hallucinations: No Sleep paralysis: No Drop attacks: No Sleep Study: Yes CPAP: No
--- OUTSIDE RECORDS SUMMARY | 2025-05-12 10:33 | XMS_ITS | Clinical Summary ---
Author Organization 175 [facility] Address [address] [place] [address] Phone Care Team Providers Care Hospital Product Specialist Name Role Phone Physician, No Pcp Primary [...] 1 (one) time each day. 5 Active ondansetron (ZOFRAN) 4 mg tabletIndicatio ns:Chronic migraine without aura without status migrainosus, not intractable 1 p.o. daily as needed for nausea associated with migraine 20 tablet 1 5 Active aspirin 81 mg EC tablet TAKE ONE TABLET BY MOUTH EVERY DAY 30 tablet 2 5 Active nystatin (MYCOSTATIN) cream Apply topically. 5 Active tiZANidine (ZANAFLEX) 2 mg tablet 1po hs PRN neck spasm 20 tablet 1 5 Active psyllium (METAMUCIL) 3.4 gram packet Take 1 packet by mouth 1 (one) time each day for 14 days. 14 packet 5 025 polyethylene glycol (MIRALAX) 17 gram packet Take 17 g by mouth 1 (one) time each day if needed for constipation. 510 g 025 dicyclomine (BENTYL) 10 mg capsuleIndicati ons:Colicky LLQ abdominal pain Take 1 capsule (10 mg total) by mouth 3 (three) times a day. 90 each 2 025 Discontinu ed(Therapy completed) Active Problems Problem Noted Date Diagnosed Date Irritable bowel syndrome without diarrhea 2024 HLD (hyperlipidemia) 04/02/2025 HTN (hypertension) 04/02/2025 COPD (chronic obstructive pu lmonary disease) ([facility] V24, [facility] V28) 04/02/2025 Deaf 04/02/2025 Adenomatous polyp of [...] History of uncomplicated diverticulitis Recent CT 03/30/2025 [facility] negative for diverticulitis Resolved Problems Problem Noted Date Diagnosed Date Resolved Date UTI (urinary tract infection) 03/30/2025 03/31/2025 Encounters Date Type Department Care Team Description 04/20/2025 8:30 AM EDT Office Visit [facility] 175 [facility] [address] [place] [address] Paige Charles PA Chronic migraine without aura without status migrainosus, not intractable (Primary Dx); Cerebrovascular accident (CVA), unspecified mechanism ([facility] V24, [facility] V28) 04/02/2025 1:00 PM EDT Office Visit Gastroenterology - [address] [facility] [address] [place] [address] Marjorie Taylor PA Colicky LLQ abdominal pain (Primary Dx); Diverticulitis large intestine w/o perforation or abscess w/o bleeding; Chronic idiopathic constipation 03/30/2025 1:52 PM EDT - 03/31/2025 1:13 PM EDT Hospital Encounter [facility] Urology [address] [place] [phone] Kedar Gary MD Bukalo, Nermina, MD Jones, Christopher, MD Seralathan, Manikandan, MD Acute cystitis without hematuria (Primary Dx); Acute kidney injury ([facility] V24); Hypokalemia Discharge Disposition: Home or Self Care 03/29/2025 Telephone Gastroenterology - [address] [place] [phone] Emir Leblanc MD 03/24/2025 Telephone Gastroenterology - [address] [place] [phone] Emir Leblanc MD 03/24/2025 Telephone Gastroenterology - [address] [place] [phone] Emir Leblanc MD 03/03/2025 10:00 AM EDT Procedure visit [facility] 175 [facility] [address] [place] [phone] Richard Osullivan MD Chronic migraine without aura [...] Description 05/19/2025 11:00 AM EST Procedure visit [facility] [address] [phone] Richard Osullivan MD [address] [place] [address] 07/21/2025 11:00 AM EST Office Visit [facility] [address] [phone] Paige Charles PA [address] [place] [phone] Health Maintenance Due Date Last Done Comments [...] Complete blood count (03/31/2025 6:14 AM EDT) [facility] WBC 10.7 4.8 - 10.8 K/mcL LAB HEMETOLOGY METHOD 03/31/2025 7:44 AM EDT [facility] RBC 4.20 3.80 - 4.80 M/mcL LAB HEMETOLOGY METHOD 03/31[facility]2025 7[facility] Hemoglobin 13.1 11.5 - 16.0 g/dL LAB HEMETOLOGY METHOD 03/31/2025 7:44 [facility] Hematocrit 38.1 35.0 - 47.0 % LAB HEMETOLOGY METHOD 03/31/2025 7:44 AM [facility] MCV 91.1 79.0 - 98.0 FL LAB HEMETOLOGY METHOD 03/31/2025 7:44 AM [facility] MCH 31.3 27.0 - 32.0 pcg LAB HEMETOLOGY METHOD 03/31/2025 7:44 AM [facility] MCHC 34.4 32.0 - 37.0 g/dL LAB HEMETOLOGY METHOD 03/31/2025 7:44 AM [facility] RDW 12.1 11.0 - 15.0 % LAB HEMETOLOGY METHOD 03/31/2025 7:44 AM [facility] Platelets 277 130 - 400 K/mcL LAB HEMETOLOGY METHOD 03/31/2025 7:44 AM [facility] MPV 10.3 7.0 - 11.0 FL LAB HEMETOLOGY METHOD 03/31/2025 7:44 AM [facility] NRBC 0.0 <1.0 % LAB HEMETOLOGY METHOD 03/31/2025 7:44 AM [facility] NRBC Absolute 0.00 <0.10 K/mcL LAB HEMETOLOGY METHOD 03/31/2025 7:44 AM EDT [facility] Blood Venous blood specimen / Unknown Venipuncture / Unknown 03/31/2025 6:14 AM EDT 03/31/2025 7:09 AM EDT us Yris Cason MD LAB BLOOD ORDERABLES Final Res ult Performing Organization Address City/[facility]/ZIP Co de Phone Number [facility] [address] [place] [address], [place] [phone] * Magnesium (03/31/2025 6:14 AM EDT) Only the most recent of2 resultswithin the time period is included. Magnesium 2.1 1.9 - 2.6 mg/dL LAB CHEMISTRY METHOD 03/31/2025 8:07 AM EDT [facility] Blood Venous blood specimen / Unknown Venipuncture / Unknown 03/31/2025 6:14 AM EDT 03/31/2025 7:09 AM EDT us Rima PARNELL LAB BLOOD ORDERABLES Final R esult Performing Organization Address [facility]/ZIP Co de Phone Number [facility] [address] [place] [address], [place] [phone] * (ABNORMAL) Basic metabolic panel (03/31/2025 6:14 AM EDT) Only the most recent of2 resultswithin the time period is included. Sodium 137 133 - 145 mmol/L LAB CHEMISTRY METHOD 03/31/2025 8:07 AM EDT [facility] Potassium 3.5 3.5 - 5.5 mmol/L LAB CHEMISTRY METHOD 03/31/2025 8:07 AM EDT [facility] Chloride 99 96 - 110 mmol/L LAB CHEMISTRY METHOD 03/31/2025 8:07 AM EDT [facility] CO2 33(H) 21 - 32 mmol/L LAB CHEMISTRY METHOD 03/31/2025 8:07 AM [facility] Anion Gap 5 3 - 11 LAB CHEMISTRY METHOD 03/31/2025 8:07 AM [facility] Glucose 100 70 - 100 mg/dL LAB CHEMISTRY METHOD 03/31/2025 8:07 AM [facility] BUN 15 5 - 25 mg/dL LAB CHEMISTRY METHOD 03/31/2025 8:07 AM [facility] Creatinine 1.06 0.50 - 1.10 mg/dL LAB CHEMISTRY METHOD 03/31/2025 8:07 AM [facility] eGFR 58(L) >=60 mL/min/1. 73m2 LAB CHEMISTRY METHOD 03/31/2025 8:07 AM [facility] Comment:Calculation based on the Chronic Kidney Disease Epidemiology Collaboration (CKD-EPI) equation refit without adjustment for race. BUN/Creatinine Ratio 14.2 LAB CHEMISTRY METHOD 03/31/2025 8:07 AM [facility] Calcium 9.4 8.5 - 10.5 mg/dL LAB CHEMISTRY METHOD 03/31/2025 8:07 AM [facility] Blood Venous blood specimen / Unknown Venipuncture / Unknown 03/31/2025 6:14 AM EDT 03/31/2025 7:09 AM EDT us Yris Cason MD LAB BLOOD ORDERABLES Final Res ult [facility] [address] [place] [address], * CT Abdomen Pelvis w Contrast (03/30/2025 [...] Abdomen and Pelvis With IV Contrast Comparison: CT/KO/OT/DE/SR - ABDOMEN AND PELVIS C+ CT - [...] Abdomen and Pelvis With IV Contrast Comparison: CT/KO/OT/DE/SR - ABDOMEN AND PELVIS C+ CT - [...] by: Kenneth Ruiz MD on 03/30/2025 17:34:41 us Kedar Gary MD IMG CT PROCEDURES Final Result * RHYTHM ECG, REPORT (03/30/2025 3:06 PM EDT) Narrative Kedar Gary MD - 03/30/2025 3:06 PM EDT Kedar Gary MD 04/02/2025 12:28 AM ECG Rhythm Interpretation and Report Date/Time: 03/30/2025 3:06 PM Performed by: Kedar Gary MD Authorized by: Kedar Gary MD ECG interpreted by ED Physician in the absence of a merchandise stocker: yes Interpretation: Interpretation: normal Details: Normal sinus rhythm with a ventricular rate of 62 bpm. Normal DE, QRS, QT, axis. No acute ischemic changes. No changes of hypokalemia. us Kedar Gary MD ECG ORDERABLES Final Result * ECG 12 lead (03/30/2025 3:05 PM EDT) [facility] Ventricular Rate ECG 62 BPM GEMUSE Atrial Rate 62 BPM GEMUSE P-R Interval 152 ms GEMUSE QRS Duration 98 ms GEMUSE Q-T Interval 438 ms GEMUSE QTc 444 ms GEMUSE P Wave [place] 48 degrees GEMUSE R [place] -11 degrees GEMUSE T [place] 75 degrees GEMUSE ECG Interpretation Normal sinus rhythm Normal ECG When compared with ECG of 19-SEP-1997 18:53, Nonspecific T wave abnormality no longer evident in Inferior leads T wave amplitude has decreased in Anterior leads Confirmed by Edwin BROWNE JAMES ([id number]) on 03/30/2025 4:36:05 PM GEMUSE 03/30/2025 3:05 PM EDT 03/30/2025 4:36 PM EDT us Kedar Gary MD ECG ORDERABLES Final Result GEMUSE * (ABNORMAL) Urinalysis with reflex microscopic and culture (03/30/2025 2:46 PM EDT) [facility] Specific [place] Urine 1.022 1.003 - 1.030 LAB URINALYSIS - AUTOMATED METHOD 03/30/2025 3:20 PM EDT [facility] pH, Urine 5.0 5.0 - 8.0 pH LAB URINALYSIS - AUTOMATED METHOD 03/30/2025 3:20 PM EDT [facility] Leukocytes, Urine Moderate(A) Negative LAB URINALYSIS - AUTOMATED METHOD 03/30/2025 3:20 PM EDT [facility] Nitrite, Urine Positive(A) Negative LAB URINALYSIS - AUTOMATED METHOD 03/30/2025 3:20 PM [facility] Protein, Urine 100(A) <=Trace mg/dL LAB URINALYSIS - AUTOMATED METHOD 03/30/2025 3:20 PM [facility] Glucose, Urine Negative Negative mg/dL LAB URINALYSIS - AUTOMATED METHOD 03/30/2025 3:20 PM [facility] Ketones, Urine 15(A) Negative mg/dL LAB URINALYSIS - AUTOMATED METHOD 03/30/2025 3:20 PM [facility] Urobilinogen , Urine 1.0 0.2 - 1.0 mg/dL LAB URINALYSIS - AUTOMATED METHOD 03/30/2025 3:20 PM [facility] Bilirubin, Urine Small(A) Negative LAB URINALYSIS - AUTOMATED METHOD 03/30/2025 3:20 PM [facility] Blood, Urine Negative Negative LAB URINALYSIS - AUTOMATED METHOD 03/30/2025 3:20 PM [facility] RBC, Urine 5.0(H) 0 - 4 /HPF LAB URINALYSIS - AUTOMATED METHOD 03/30/2025 3:20 PM [facility] WBC, Urine 75.2(H) 0 - 4 /HPF LAB URINALYSIS - AUTOMATED METHOD 03/30/2025 3:20 PM [facility] Squamous Epithelial, Urine >100(H) 0 - 60 /LPF LAB URINALYSIS - AUTOMATED METHOD 03/30/2025 3:20 PM [facility] Bacteria, Urine Moderate(A) Negative /HPF LAB URINALYSIS - AUTOMATED METHOD 03/30/2025 3:20 PM [facility] Hyaline Casts, Urine 46.6(H) 0 - 3 /LPF LAB URINALYSIS - AUTOMATED METHOD 03/30/2025 3:20 PM [facility] Urine Urine specimen obtained by clean catch procedure / Unknown Non-blood Collection / Unknown 03/30/2025 2:46 PM EDT 03/30/2025 2:50 PM EDT us Kedar Gary MD LAB URINE ORDERABLES Final Res ult Performing Organization Address City/[facility]/ZIP Co de Phone Number [facility] [address] [place] [address], [place] [phone] * Arevalo urine culture tube (03/30/2025 2:46 PM EDT) Extra Tube Hold for add-ons. 03/30/2025 4:01 PM EDT [facility] Comment:Auto resulted. Urine Urine specimen obtained by clean catch procedure / Unknown Non-blood Collection / Unknown 03/30/2025 2:46 PM EDT 03/30/2025 2:50 PM EDT us Kedar Gary MD LAB URINE ORDERABLES Final Res ult Performing Organization Address [facility]/ZIP Co de Phone Number [facility] [address] [place] [address], [place] [phone] * Culture urine (03/30/2025 2:46 PM EDT) Culture, Urine No growth 03/31/2025 7:38 AM EDT [facility] Urine Urine specimen obtained by clean catch procedure / Unknown Non-blood Collection / Unknown 03/30/2025 2:46 PM EDT 03/30/2025 3:20 PM EDT us Kedar Gary MD LAB MICROBIOLOGY - GENERAL ORD ERABLES Final Result Performing Organization Address City/[facility]/ZIP Co de Phone Number [facility] [address] [place] [address], [place] [phone] * Lactate, with reflex (03/30/2025 2:45 PM EDT) LACTIC ACID 1.8 0.4 - 2.0 mmol/L LAB CHEMISTRY METHOD 03/30/2025 3:27 PM EDT [facility] Blood Venous blood specimen / Unknown Venipuncture / Unknown 03/30/2025 2:45 PM EDT 03/30/2025 2:50 PM EDT Kedar Gary MD LAB BLOOD ORDERABLES Final Res ult [facility] [address] [place] [address], * (ABNORMAL) CBC auto differential (03/30/2025 1:36 PM EDT) Pathologist [facility] WBC 14.4(H) 4.8 - 10.8 K/mcL LAB HEMETOLOGY METHOD 03/30/2025 1:54 PM EDT [facility] RBC 5.30(H) 3.80 - 4.80 M/mcL LAB HEMETOLOGY METHOD 03/30/2025 1:54 PM EDT [facility] Hemoglobin 16.8(H) 11.5 - 16.0 g/dL LAB HEMETOLOGY METHOD 03/30/2025 1:54 PM EDT [facility] Hematocrit 47.1(H) 35.0 - 47.0 % LAB HEMETOLOGY METHOD 03/30/2025 1:54 PM EDT [facility] MCV 89.5 79.0 - 98.0 FL LAB HEMETOLOGY METHOD 03/30/2025 1:54 PM EDT [facility] MCH 31.9 27.0 - 32.0 pcg LAB HEMETOLOGY METHOD 03/30/2025 1:54 PM EDT [facility] MCHC 35.7 32.0 - 37.0 g/dL LAB HEMETOLOGY METHOD 03/30/2025 1:54 PM EDT [facility] RDW 11.9 11.0 - 15.0 % LAB HEMETOLOGY METHOD 03/30/2025 1:54 PM EDT [facility] Platelets 383 130 - 400 K/mcL LAB HEMETOLOGY METHOD 03/30/2025 1:54 PM EDT [facility] MPV 9.8 7.0 - 11.0 FL LAB HEMETOLOGY METHOD 03/30/2025 1:54 PM EDT [facility] NRBC 0.0 <1.0 % LAB HEMETOLOGY METHOD 03/30/2025 1:54 PM EDT [facility] NRBC Absolute 0.00 <0.10 K/mcL LAB HEMETOLOGY METHOD 03/30/2025 1:54 PM [facility] Neutrophils Relative 76.0 % LAB HEMETOLOGY METHOD 03/30/2025 1:54 PM EDT [facility] Lymphocytes Relative 16.1 % LAB HEMETOLOGY METHOD 03/30/2025 1:54 PM EDT [facility] Monocytes Relative 6.8 % LAB HEMETOLOGY METHOD 03/30/2025 1:54 PM [facility] Eosinophils Relative 0.3 % LAB HEMETOLOGY METHOD 03/30/2025 1:54 PM EDT [facility] Basophils Relative 0.4 % LAB HEMETOLOGY METHOD 03/30/2025 1:54 PM EDT [facility] Immature Granulocytes Relative 0.4 % LAB HEMETOLOGY METHOD 03/30/2025 1:54 PM EDT [facility] Neutrophils Absolute 10.96(H) 1.50 - 7.00 K/mcL LAB HEMETOLOGY METHOD 03/30/2025 1:54 PM EDT [facility] Lymphocytes Absolute 2.33 1.00 - 5.00 K/mcL LAB HEMETOLOGY METHOD 03/30/2025 1:54 PM EDT [facility] Monocytes Absolute 0.98 0.20 - 1.00 K/[facility] LAB HEMETOLOGY METHOD 03/30/2025 1:54 PM EDT [facility] Eosinophils Absolute 0.04 0.00 - 0.50 K/[facility] LAB HEMETOLOGY METHOD 03/30/2025 1:54 PM EDT [facility] Basophils Absolute 0.06 0.00 - 0.20 K/[facility] LAB HEMETOLOGY METHOD 03/30/2025 1:54 PM EDT [facility] Immature Granulocytes Absolute 0.06(H) 0.00 - 0.03 K/[facility] LAB HEMETOLOGY METHOD 03/30/2025 1:54 PM EDT [facility] Blood Venous blood specimen / Unknown Venipuncture / Unknown 03/30/2025 1:36 PM EDT 03/30/2025 1:44 PM EDT us Kedar Gary MD LAB BLOOD ORDERABLES Final Res ult [facility] [address] [place] [address], * (ABNORMAL) Comprehensive metabolic panel (03/30/2025 1:36 PM EDT) Sodium 135 133 - 145 mmol/L LAB CHEMISTRY METHOD 03/30/2025 2:45 PM EDT [facility] Potassium 2.9(LL) 3.5 - 5.5 mmol/L LAB CHEMISTRY METHOD 03/30/2025 2:45 PM EDT [facility] Chloride 92(L) 96 - 110 mmol/L LAB CHEMISTRY METHOD 03/30/2025 2:45 PM EDT [facility] CO2 34(H) 21 - 32 mmol/L LAB CHEMISTRY METHOD 03/30/2025 2:45 PM [facility] Anion Gap 9 3 - 11 LAB CHEMISTRY METHOD 03/30/2025 2:45 PM [facility] Glucose 142(H) 70 - 100 mg/dL LAB CHEMISTRY METHOD 03/30/2025 2:45 PM [facility] BUN 15 5 - 25 mg/dL LAB CHEMISTRY METHOD 03/30/2025 2:45 PM [facility] Creatinine 1.52(H) 0.50 - 1.10 mg/dL LAB CHEMISTRY METHOD 03/30/2025 2:45 PM [facility] eGFR 38(L) >=60 mL/min/1. 73m2 LAB CHEMISTRY METHOD 03/30/2025 2:45 PM [facility] Comment:Calculation based on the Chronic Kidney Disease Epidemiology Collaboration (CKD-EPI) equation refit without adjustment for race. BUN/Creatinine Ratio 9.9 LAB CHEMISTRY METHOD 03/30/2025 2:45 PM [facility] Calcium 10.1 8.5 - 10.5 mg/dL LAB CHEMISTRY METHOD 03/30/2025 2:45 PM [facility] AST (SGOT) 68(H) 10 - 42 unit/L LAB CHEMISTRY METHOD 03/30/2025 2:45 PM [facility] ALT (SGPT) 59 10 - 60 unit/L LAB CHEMISTRY METHOD 03/30/2025 2:45 PM [facility] Alkaline Phosphatase 77 42 - 121 unit/L LAB CHEMISTRY METHOD 03/30/2025 2:45 PM [facility] Total Protein 7.6 6.0 - 8.0 g/dL LAB CHEMISTRY METHOD 03/30/2025 2:45 PM [facility] Albumin 4.4 3.2 - 5.0 g/dL LAB CHEMISTRY METHOD 03/30/2025 2:45 PM [facility] Total Bilirubin 1.5(H) 0.0 - 1.4 mg/dL LAB CHEMISTRY METHOD 03/30/2025 2:45 PM EDT [facility] Blood Venous blood specimen / Unknown Venipuncture / Unknown 03/30/2025 1:36 PM EDT 03/30/2025 1:44 PM EDT Kedar Gary MD LAB BLOOD ORDERABLES Final Res ult [facility] ([facility]) [facility] [address] [place] [address], [place] [phone] * External Colonoscopy Report (10/27/2024 1:56 PM EDT) Anatomical Region Laterality Modality Endoscopy Historical Provider GI~PROCEDURE ORDERABLES F inal Result from Last 3 Months or Most Recently Relevant to Health Maintenance Insurance * Guarantor: Chante Cruz Account Type Relation to Patient Date of Phone Billing Address Personal/Family Self [address] [place] [id number] MEDICARE [place] Advance Directives * Full Code - Confirmed [...] currently active code status orders. Care Teams Hospital Product Specialist Relationship Specialty Start Date End Date Physician, No Pcp PCP - General 03/30/25
== END 2025-05-12 10:31 | disposition home or self-care (01) ==
LOC: HO.HSMC 09:30
PROVIDERS: PCP Internal Medicine; Visit Provider Physician Assistant Medical
DX: G47.33 Obstructive sleep apnea (adult) (pediatric) (principal); Z99.89 Dependence on other enabling machines and devices; R51.9 Headache, unspecified; H91.93 Unspecified hearing loss, bilateral
CPT/HCPCS: 99204

== ENCOUNTER → 2025-05-12 09:29 | Outpatient (BNVA) | payer MEDICARE, MEDICAID, SELFPAY | PROVIDERS: PCP Internal Medicine; Visit Provider Physician Assistant Medical | DX: G47.33 Obstructive sleep apnea (adult) (pediatric) (principal); Z99.89 Dependence on other enabling machines and devices; R51.9 Headache, unspecified; H91.93 Unspecified hearing loss, bilateral | CPT/HCPCS: 99202 ==

== ENCOUNTER 2025-06-07 13:13 | Outpatient (REF) | payer MEDICARE, MEDICAID, SELFPAY ==
--- OUTSIDE RECORDS SUMMARY | 2025-06-08 02:23 | XMS_ITS | Clinical Summary ---
Author Organization 175 [facility] Address [address] [place] [address] Phone Care Team Providers Care Electronic Gluer Name Role Phone Physician, No Pcp Primary [...] day. 5 Active ondansetron (ZOFRAN) 4 mg tabletIndication s:Chronic [...] neck spasm 20 tablet 1 5 Active Hospital, Clinic, or Other Facility Administered Medication Ordered Dose Route Frequency Start Date End Date Status onabotulinumtoxinA (BOTOX) 200 unit injection 200 UnitsIndications:Chronic migraine without aura without status migrainosus, not intractable 200 Units IM Once 05/19/2025 05/19/2025 Ended Active Problems Problem Noted Date Diagnosed Date Irritable bowel syndrome without diarrhea 2024 HLD (hyperlipidemia) 04/02/2025 HTN (hypertension) 04/02/2025 COPD (chronic obstructive pulmonary disease) 08/2024 Deaf 04/02/2025 Adenomatous polyp of colon 04/02/2025 [...] uncomplicated diverticulitis Recent CT 03/30/2025 [facility] negative for diverticulitis Resolved Problems Problem Noted Date Diagnosed Date Resolved Date UTI (urinary tract infection) 03/30/2025 03/31/2025 Encounters Date Type Department Care Team Description 05/19/2025 11:00 AM EST Procedure visit [facility] 175 [facility] [address] [place] [phone] Richard Osullivan MD Chronic migraine without aura without status migrainosus, not intractable (Primary Dx) 04/20/2025 8:30 AM EDT Office Visit [facility] 175 [facility] [address] [place] [phone] Paige Charles PA Chronic migraine without aura without status migrainosus, not intractable (Primary Dx); Cerebrovascular accident (CVA), unspecified mechanism (CMS/HCC V24, CMS/HCC V28) 04/02/2025 1:00 PM EDT Office Visit Gastroenterology - 299 [facility] 299 [facility] [address] [place] [phone] Marjorie Taylor PA Colicky LLQ abdominal pain (Primary Dx); Diverticulitis large intestine w/o perforation or abscess w/o bleeding; Chronic idiopathic constipation 03/30/2025 1:52 PM EDT - 03/31/2025 1:13 PM EDT Hospital Encounter [facility] [address] [place] [address] Kedar Gary MD Bukalo, Nermina, MD Jones, Christopher, MD Seralathan, Manikandan, MD Acute cystitis without hematuria (Primary Dx); Acute kidney injury (CMS/HCC V24); Hypokalemia Discharge Disposition: Home or Self Care 03/29/2025 Telephone Gastroenterology - [address] [phone] Emir Leblanc MD 03/24/2025 Telephone Gastroenterology - [address] [phone] Emir Leblanc MD 03/24/2025 Telephone Gastroenterology - [address] [phone] Emir Leblanc MD from Last 3 Months Surgical History Surgery [...] Care Team (Late st Contact Info) Description 07/21/2025 11:00 AM EST Office Visit [facility] [address] [phone] Paige Charles PA [address] [place] [phone] 08/18/2025 1:00 PM EST Procedure visit [facility] [address] [phone] Richard Osullivan MD [address] [place] [address] Health Maintenance Due Date Last Done Comments [...] AM EDT) WBC 10.7 4.8 - 10.8 K/[facility] LAB HEMETOLOGY METHOD 03/31/2025 7:44 AM EDT [...] g/dL LAB HEMETOLOGY METHOD [facility] RDW 12.1 11.0 - 15.0 % LAB HEMETOLOGY METHOD 03/31/2025 7:44 AM EDT [facility] Platelets 277 130 - 400 K/mcL LAB HEMETOLOGY METHOD 03/31/2025 7:44 AM EDT [facility] MPV 10.3 7.0 - 11.0 FL LAB HEMETOLOGY METHOD 03/31/2025 7:[facility] NRBC 0.0 <1.0 % LAB HEMETOLOGY METHOD 03/31/2025 7:44 AM EDT [facility] NRBC Absolute 0.00 <0.10 K/mcL LAB HEMETOLOGY METHOD 03/31/2025 7:44 AM [facility] Blood Venous blood specimen / Unknown Venipuncture / Unknown 03/31/2025 6:14 AM EDT 03/31/2025 7:09 AM EDT us Yris Cason MD LAB BLOOD ORDERABLES Final Res ult [facility] [address] [place] [address], [place] [phone] * Magnesium (03/31/2025 6:14 AM EDT) Only the most recent of2 resultswithin the time period is included. Pathologist [facility] Magnesium 2.1 1.9 - 2.6 mg/dL LAB CHEMISTRY METHOD 03/31/2025 8:07 AM EDT [facility] Blood Venous blood specimen / Unknown Venipuncture / Unknown 03/31/2025 6:14 AM EDT 03/31/2025 7:09 AM EDT Rima PARNELL LAB BLOOD ORDERABLES Final R esult [facility] [address] [place] [address], [place] [phone] * (ABNORMAL) Basic metabolic panel (03/31/2025 6:14 AM EDT) Only the most recent of2 resultswithin the time period is included. Pathologist [facility] Sodium 137 133 - 145 mmol/L LAB CHEMISTRY METHOD 03/31/2025 8:07 AM [facility] Potassium 3.5 3.5 - 5.5 mmol/L LAB CHEMISTRY METHOD 03/31/2025 8:07 AM [facility] Chloride 99 96 - 110 mmol/L LAB CHEMISTRY METHOD 03/31/2025 8:07 AM [facility] CO2 33(H) 21 - 32 mmol/L LAB CHEMISTRY METHOD 03/31/2025 8:07 AM [facility] Anion Gap 5 3 - 11 LAB CHEMISTRY METHOD 03/31/2025 8:07 AM [facility] Glucose 100 70 - 100 mg/dL LAB CHEMISTRY METHOD 03/31/2025 8:07 AM [facility] BUN 15 5 - 25 mg/dL LAB CHEMISTRY METHOD 03/31/2025 8:07 AM EDT [facility] Creatinine 1.06 0.50 - 1.10 mg/dL LAB CHEMISTRY METHOD 03/31/2025 8:07 AM EDT [facility] eGFR 58(L) >=60 mL/min/1. 73m2 LAB CHEMISTRY METHOD 03/31/2025 8:07 AM EDT [facility] Comment:Calculation based on the Chronic Kidney Disease Epidemiology Collaboration (CKD-EPI) equation refit without adjustment for race. BUN/Creatinine Ratio 14.2 LAB CHEMISTRY METHOD 03/31/2025 8:07 AM T [facility] Calcium 9.4 8.5 - 10.5 mg/dL LAB CHEMISTRY METHOD 03/31/2025 8:07 AM EDT [facility] Blood Venous blood specimen / Unknown Venipuncture / Unknown 03/31/2025 6:14 AM EDT 03/31/2025 7:09 AM EDT us Yris Cason MD LAB BLOOD ORDERABLES Final Res ult [facility] [address] [place] [address], [place] [phone] * CT Abdomen Pelvis w Contrast (03/30/2025 [...] Abdomen and Pelvis With IV Contrast Comparison: CT/KO/OT/AZ/SR - ABDOMEN AND PELVIS C+ CT - [...] Abdomen and Pelvis With IV Contrast Comparison: CT/KO/OT/AZ/SR - ABDOMEN AND PELVIS C+ CT - [...] RHYTHM ECG, REPORT (03/30/2025 3:06 PM EDT) Kedar High MD - 03/30/2025 3:06 PM EDT Kedar Gary MD 04/02/2025 12:28 AM ECG Rhythm Interpretation and Report Date/Time: 03/30/2025 3:06 PM Performed by: Kedar Gary MD Authorized by: Kedar Gary MD ECG interpreted by ED Physician in the absence of a onion farmer: yes Interpretation: Interpretation: normal Details: Normal sinus rhythm with a ventricular rate of 62 bpm. Normal [place], QRS, QT, axis. No acute ischemic changes. No changes of hypokalemia. Kedar Gary MD ECG ORDERABLES Final Result * ECG 12 lead (03/30/2025 3:05 PM EDT) Pathologist [facility] Ventricular Rate ECG 62 BPM GEMUSE Atrial Rate 62 BPM GEMUSE P-R Interval 152 ms GEMUSE QRS Duration 98 ms GEMUSE Q-T Interval 438 ms GEMUSE QTc 444 ms GEMUSE P Wave [place] 48 degrees GEMUSE R [place] -11 degrees GEMUSE T [place] 75 degrees GEMUSE ECG Interpretation Normal sinus [...] microscopic and culture (03/30/2025 2:46 PM EDT) [facility] Specific [place] Urine 1.022 1.003 - 1.030 LAB URINALYSIS - AUTOMATED METHOD 03/30/2025 3:20 PM EDT [facility] pH, Urine 5.0 5.0 - 8.0 pH LAB URINALYSIS - AUTOMATED METHOD 03/30/2025 3:20 PM [facility] Leukocytes, Urine Moderate(A) Negative LAB URINALYSIS - AUTOMATED METHOD 03/30/2025 3:20 PM EDT [facility] Nitrite, Urine Positive(A) Negative LAB URINALYSIS - AUTOMATED METHOD 03/30/2025 3:20 PM EDT [facility] Protein, Urine 100(A) <=Trace mg/dL LAB URINALYSIS - AUTOMATED METHOD 03/30/2025 3:20 PM [facility] Glucose, Urine Negative Negative mg/dL LAB URINALYSIS - AUTOMATED METHOD 03/30/2025 3:20 PM EDT [facility] Ketones, Urine 15(A) Negative mg/dL LAB URINALYSIS - AUTOMATED METHOD 03/30/2025 3:20 PM EDT [facility] Urobilinogen , Urine 1.0 0.2 - 1.0 mg/dL LAB URINALYSIS - AUTOMATED METHOD 03/30/2025 3:20 PM T [facility] Bilirubin, Urine Small(A) Negative LAB URINALYSIS - AUTOMATED METHOD 03/30/2025 3:20 PM EDT [facility] Blood, Urine Negative Negative LAB URINALYSIS - AUTOMATED METHOD 03/30/2025 3:20 PM EDT [facility] RBC, Urine 5.0(H) 0 - 4 /HPF LAB URINALYSIS - AUTOMATED METHOD 03/30/2025 3:20 PM [facility] WBC, Urine 75.2(H) 0 - 4 /HPF LAB URINALYSIS - AUTOMATED METHOD 03/30/2025 3:20 PM EDT [facility] Squamous Epithelial, Urine >100(H) 0 - 60 /LPF LAB URINALYSIS - AUTOMATED METHOD 03/30/2025 3:20 PM [facility] Bacteria, Urine Moderate(A) Negative /HPF LAB URINALYSIS - AUTOMATED METHOD 03/30/2025 3:20 PM [facility] Hyaline Casts, Urine 46.6(H) 0 - 3 /LPF LAB URINALYSIS - AUTOMATED METHOD 03/30/2025 3:20 PM T [facility] Urine Urine specimen obtained by clean catch procedure / Unknown Non-blood Collection / Unknown 03/30/2025 2:46 PM EDT 03/30/2025 2:50 PM EDT us Kedar Gary MD LAB URINE ORDERABLES Final Res ult [facility] [address] [place] [address], [place] [phone] * Arevalo urine culture tube (03/30/2025 2:46 PM EDT) Pathologist [facility] Extra Tube Hold for add-ons. 03/30/2025 4:01 PM EDT [facility] Comment:Auto resulted. Urine Urine specimen obtained by clean catch procedure / Unknown Non-blood Collection / Unknown 03/30/2025 2:46 PM EDT 03/30/2025 2:50 PM EDT us Kedar Gary MD LAB URINE ORDERABLES Final Res ult [facility] [address] [place] [address], [place] [phone] * Culture urine (03/30/2025 2:46 PM EDT) [facility] Culture, Urine No growth 03/31/2025 7:38 AM EDT [facility] Urine Urine specimen obtained by clean catch procedure / Unknown Non-blood Collection / Unknown 03/30/2025 2:46 PM EDT 03/30/2025 3:20 PM EDT Kedar Gary MD LAB MICROBIOLOGY - GENERAL ORD ERABLES Final Result [facility] [address] [place] [address], [place] [phone] * Lactate, with reflex (03/30/2025 2:45 PM EDT) [facility] LACTIC ACID 1.8 0.4 - 2.0 mmol/L LAB CHEMISTRY METHOD 03/30/2025 3:27 PM EDT [facility] Blood Venous blood specimen / Unknown Venipuncture / Unknown 03/30/2025 2:45 PM EDT 03/30/2025 2:50 PM EDT us Kedar Gary MD LAB BLOOD ORDERABLES Final Res ult [facility] [address] [place] [address], * (ABNORMAL) CBC auto differential (03/30/2025 1:36 PM EDT) WBC 14.4(H) 4.8 - 10.8 K/mcL LAB [...] 1:54 PM EDT [facility] NRBC 0.0 <1.0 % LAB HEMETOLOGY METHOD 03/30/2025 1:54 PM EDT [facility] NRBC Absolute 0.00 <0.10 K/mcL LAB HEMETOLOGY METHOD 03/30/2025 1:54 PM EDT [facility] Neutrophils Relative 76.0 % LAB HEMETOLOGY METHOD 03/30/2025 1:54 PM EDT [facility] Lymphocytes Relative 16.1 % LAB HEMETOLOGY METHOD 03/30/2025 1:54 [facility] Monocytes Relative 6.8 % LAB HEMETOLOGY METHOD 03/30/2025 1:54 PM [facility] Eosinophils Relative 0.3 % LAB HEMETOLOGY METHOD 03/30/2025 1:54 PM [facility] Basophils Relative 0.4 % LAB HEMETOLOGY METHOD 03/30/2025 1:54 PM [facility] Immature Granulocytes Relative 0.4 % LAB HEMETOLOGY METHOD 03/30/2025 1:54 PM [facility] Neutrophils Absolute 10.96(H) 1.50 - 7.00 K/mcL LAB HEMETOLOGY METHOD 03/30/2025 1:54 PM EDT [facility] Lymphocytes Absolute 2.33 1.00 - 5.00 K/mcL LAB HEMETOLOGY METHOD 03/30/2025 1:54 [facility] Monocytes Absolute 0.98 0.20 - 1.00 K/mcL LAB HEMETOLOGY METHOD 03/30/2025 1:54 PM [facility] Eosinophils Absolute 0.04 0.00 - 0.50 [...] Res ult [facility] [address] [place] [address], [place] [phone] * (ABNORMAL) Comprehensive metabolic panel (03/30/2025 1:36 PM EDT) Sodium 135 133 - 145 mmol/L LAB CHEMISTRY METHOD 03/30/2025 2:45 PM [facility] Potassium 2.9(LL) 3.5 - 5.5 mmol/L LAB CHEMISTRY METHOD 03/30/2025 2:45 PM [facility] Chloride 92(L) 96 - 110 mmol/L LAB CHEMISTRY METHOD 03/30/2025 2:45 PM [facility] CO2 34(H) 21 - 32 mmol/L LAB CHEMISTRY METHOD 03/30/2025 2:45 PM [facility] Anion Gap 9 3 - 11 LAB CHEMISTRY METHOD 03/30/2025 2:45 PM [facility] Glucose 142(H) 70 - 100 mg/dL LAB CHEMISTRY METHOD 03/30/2025 2:45 PM [facility] BUN 15 5 - 25 mg/dL LAB CHEMISTRY METHOD 03/30/2025 2:45 PM [facility] Creatinine 1.52(H) 0.50 - 1.10 mg/dL LAB CHEMISTRY METHOD 03/30/2025 2:45 PM [facility] eGFR 38(L) >=60 mL/min/1. 73m2 LAB CHEMISTRY METHOD 03/30/2025 2:45 PM [facility] Comment:Calculation based on the Chronic Kidney Disease Epidemiology Collaboration (CKD-EPI) equation refit without adjustment for race. BUN/Creatinine Ratio 9.9 LAB CHEMISTRY METHOD 03/30/2025 2:45 PM [facility] Calcium 10.1 8.5 - 10.5 mg/dL LAB CHEMISTRY METHOD 03/30/2025 2:45 PM [facility] AST (SGOT) 68(H) 10 - 42 unit/L LAB CHEMISTRY METHOD 03/30/2025 2:45 PM [facility] ALT (SGPT) 59 10 - 60 unit/L LAB CHEMISTRY METHOD 03/30/2025 2:45 PM [facility] Alkaline Phosphatase 77 42 - 121 unit/L LAB CHEMISTRY METHOD 03/30/2025 2:45 PM [facility] Total Protein 7.6 6.0 - 8.0 g/dL LAB CHEMISTRY METHOD 03/30/2025 2:45 PM [facility] Albumin 4.4 3.2 - 5.0 g/dL LAB CHEMISTRY METHOD 03/30/2025 2:45 PM [facility] Total Bilirubin 1.5(H) 0.0 - 1.4 mg/dL LAB CHEMISTRY METHOD 03/30/2025 2:45 PM [facility] Blood Venous blood specimen / Unknown Venipuncture / Unknown 03/30/2025 1:36 PM EDT 03/30/2025 1:44 PM EDT us Kedar Gary MD LAB BLOOD ORDERABLES Final Res ult [facility] [address] [place] [address], * External Colonoscopy Report (10/27/2024 1:56 PM EDT) Anatomical Region Laterality Modality Endoscopy us Historical Provider GI~PROCEDURE ORDERABLES F inal Result from Last 3 Months or Most Recently Relevant to Health Maintenance Insurance [place]ARE [place]ID [place] Advance Directives * Full [...] currently active code status orders. Care Teams Electronic Gluer Relationship Specialty Start Date End Date Physician, No Pcp PCP - General 03/30/25
== END 2025-06-07 13:14 | disposition home or self-care (01) ==
LOC: HO.LNP 13:13
PROVIDERS: PCP Internal Medicine; Visit Provider Urology
DX: R31.29 Other microscopic hematuria (principal); R80.9 Proteinuria, unspecified; R39.9 Unspecified symptoms and signs involving the genitourinary system
CPT/HCPCS: 51798; 81003; 87086; 88112; 99202

== ENCOUNTER 2025-06-07 13:13 | Outpatient (AMB) | payer MEDICARE, MEDICAID, SELFPAY ==
--- NOTE | 2025-06-07 12:54 | MHC.OFFVIS ---
Intake Visit Reasons: Micro hematuria (set(UA+PVR) Intake Note: New patient presents today for initial visit for micro hematuria Urology Medication:Potassium Blood Thinner:Aspirin Antibiotic Allergies:PCN, Amoxicillin PVR:0ml Allergies penicillin V Allergy (Unknown, Verified 06/07/25 13:49) N/V Penicillins (PENICILLINS) Allergy (Unknown, Verified 06/07/25 13:49) IN HISTORY AND DOESN'T REMEMBER carisoprodol (From [facility]) Adverse Reaction (Intermediate, Verified 06/07/25 13:49) VOMITED amoxicillin Allergy (Unknown, Uncoded 02/24/25 11:10) GI upset HPI Comments Details: 06/07/2025--new patient evaluation for microscopic hematuria. PFSH Medical History Thoracic disc herniation Generalized arthritis Back pain Urinary urgency Incomplete emptying of bladder Abscess of breast, right COPD (chronic obstructive pulmonary disease) Deafness Hyperlipidemia Palpitations IBS (irritable bowel syndrome) Lipid disorder Hypertension, essential Surgical History History of surgery History of removal of cyst History of colonoscopy Family History Father Dementia Mother No problems noted. Other Mental health disorder Social History Housing: Apartment Alcohol intake: current Alcohol intake frequency: 0-2 drinks per day Patient Tobacco Use Status: Current everyday Tobacco user Tobacco use type: Cigarette Cigarettes Per Day: 10 e-Cigarette/Vaping Use: Never Used Substance Use Type: Marijuana Advance Directives Date on File: 09/13/22 service: No Current occupational status: unemployed and retired Sexual orientation: Straight/Heterosexual Gender identity: Female Cognitive needs: No Hearing needs: Yes Vision needs: Yes Office Procedures Post Void Residual Post Residual Void Post Void Residual (PVR): 0 [id number] Void Residual by ultrasound Results AMB Urinalysis, Automated UA Leukoctes 0 Ayo/uL Last Edit by Becky Quan on 06/07/25 16:53 UA Nitrite Negative Last Edit by Becky Quan on 06/07/25 16:53 UA Urobilinogen 0.2 mg/dL Last Edit by Becky Quan on 06/07/25 16:53 UA Protein 15 mg/dL Last Edit by Becky Quan on 06/07/25 16:53 UA pH 6.0 Last Edit by Becky Quan on 06/07/25 16:53 UA Blood 10 Med/uL Last Edit by Becky Quan on 06/07/25 16:53 UA Specific [place] 1.015 Last Edit by Becky Quan on 06/07/25 16:53 UA Ketone Negative Last Edit by Becky Quan on 06/07/25 16:53 UA Bilirubin 0 mg/dL Last Edit by Becky Quan on 06/07/25 16:53 UA Glucose 0 mg/dL Last Edit by Becky Quan on 06/07/25 16:53 Assessment & Plan Assessment & Plan Orders: Orders AMB Urinalysis Automated Today Z13.9 - Encounter for screening, unspecified Urine Culture Today R31.9 - Hematuria, unspecified AMB Post Void Residual by ultrasound Today R31.9 - Hematuria, unspecified Urine Cytology Today R31.9 - Hematuria, unspecified Coding CPT Codes Post Residual Void - PVR CPT Code: [id number] Void Residual by ultrasound ([id number])
== END 2025-06-07 14:00 | disposition home or self-care (01) ==
PROVIDERS: PCP Internal Medicine; Visit Provider Urology
DX: Z13.9 Encounter for screening, unspecified (principal)

== ENCOUNTER 2025-06-14 12:52 | Outpatient (REF) | payer MEDICARE, MEDICAID, SELFPAY ==
--- OUTSIDE RECORDS SUMMARY | 2025-06-14 18:50 | XMS_ITS | Clinical Summary ---
Author Organization 175 [facility] Address [address] [place] [address] Phone Care Team Providers Care Vest Tailor Name Role Phone Physician, No Pcp Primary [...] History of uncomplicated diverticulitis Recent CT 03/30/2025 [facility] negative for diverticulitis Resolved Problems Problem Noted Date Diagnosed Date Resolved Date UTI (urinary tract infection) 03/30/2025 03/31/2025 Encounters Date Type Department Care Team Description 05/19/2025 11:00 AM EST Procedure visit [facility] 175 [facility] [address] [place] [phone] Richard Osullivan MD Chronic migraine without aura without status migrainosus, not intractable (Primary Dx) 04/20/2025 8:30 AM EDT Office Visit [facility] 175 [facility] [address] [place] [phone] Paige Charles PA Chronic migraine without aura without status migrainosus, not intractable (Primary Dx); Cerebrovascular accident (CVA), unspecified mechanism (CMS/HCC V24, CMS/HCC V28) 04/02/2025 1:00 PM EDT Office Visit Gastroenterology - 299 [facility] 299 [facility] [address] [place] [phone] Marjorie Taylor PA Colicky LLQ abdominal pain (Primary Dx); Diverticulitis large intestine w/o perforation or abscess w/o bleeding; Chronic idiopathic constipation 03/30/2025 1:52 PM EDT - 03/31/2025 1:13 PM EDT Hospital Encounter [facility] [address] [place] [address] Kedar Gary MD Bukalo, Nermina, MD Jones, Christopher, MD Seralathan, Manikandan, MD Acute cystitis without hematuria (Primary Dx); Acute kidney injury (CMS/HCC V24); Hypokalemia Discharge Disposition: Home or Self Care 03/29/2025 Telephone Gastroenterology - [address] [phone] Emir Leblanc MD 03/24/2025 Telephone Gastroenterology - [address] [phone] Emir Leblanc MD 03/24/2025 Telephone Gastroenterology - [address] [phone] Emir Leblanc MD from Last 3 Months [...] Description 07/21/2025 11:00 AM EST Office Visit [facility] [address] [phone] Paige Charles PA [address] [place] [phone] 08/18/2025 1:00 PM EST Procedure visit [facility] [address] [phone] Richard Osullivan MD [address] [place] [address] Health Maintenance Due Date Last Done Comments [...] AM EDT) WBC 10.7 4.8 - 10.8 K/[facility] LAB HEMETOLOGY METHOD 03/31/2025 7:44 AM EDT [facility] RBC 4.20 3.80 - 4.80 M/mcL LAB HEMETOLOGY METHOD 03/31/2025 7:44 AM EDT [facility] Hemoglobin 13.1 11.5 - 16.0 g/dL LAB HEMETOLOGY METHOD 03/31/2025 7:44 AM EDT [facility] Hematocrit 38.1 35.0 - 47.0 % LAB HEMETOLOGY METHOD 03/31/2025 7:44 AM EDT [facility] MCV 91.1 79.0 - 98.0 FL LAB HEMETOLOGY METHOD 03/31/2025 7:44 AM EDT [facility] MCH 31.3 27.0 - 32.0 pcg LAB HEMETOLOGY METHOD 03/31/2025 7:44 AM EDT [facility] MCHC 34.4 32.0 - 37.0 g/dL LAB HEMETOLOGY METHOD [facility] RDW 12.1 11.0 - 15.0 % LAB HEMETOLOGY METHOD 03/31/2025 7:44 AM EDT [facility] Platelets 277 130 - 400 K/mcL LAB HEMETOLOGY METHOD 03/31/2025 7:44 AM EDT [facility] MPV 10.3 7.0 - 11.0 FL LAB HEMETOLOGY METHOD 03/31[facility]25 [facility] NRBC 0.0 <1.0 % LAB HEMETOLOGY METHOD 03/31/2025 7:44 AM EDT [facility] NRBC Absolute 0.00 <0.10 K/mcL LAB HEMETOLOGY METHOD 03/31/2025 7:44 AM [facility] Blood Venous blood specimen / Unknown Venipuncture / Unknown 03/31/2025 6:14 AM EDT 03/31/2025 7:09 AM EDT us Yris Cason MD LAB BLOOD ORDERABLES Final Res ult [facility] [address] [place] [address], [place] [phone] * Magnesium (03/31/2025 6:14 AM EDT) Only the most recent of2 resultswithin the time period is included. Pathologist [facility] Magnesium 2.1 1.9 - 2.6 mg/dL LAB CHEMISTRY METHOD 03/31/2025 8:07 AM EDT [facility] Blood Venous blood specimen / Unknown Venipuncture / Unknown 03/31/2025 6:14 AM EDT 03/31/2025 7:09 AM EDT Rima PARNELL LAB BLOOD ORDERABLES Final R esult [facility] [address] [place] [address], [place] [phone] * (ABNORMAL) Basic metabolic panel (03/31/2025 6:14 AM EDT) Only the most recent of2 resultswithin the time period is included. Pathologist [facility] Sodium 137 133 - 145 mmol/L LAB CHEMISTRY METHOD 03/31/2025 8:07 AM [facility] Potassium 3.5 3.5 - 5.5 mmol/L LAB CHEMISTRY METHOD 03/31/2025 8:07 AM [facility] Chloride 99 96 - 110 mmol/L LAB CHEMISTRY METHOD 03/31/2025 8:07 AM [facility] CO2 33(H) 21 - 32 mmol/L LAB CHEMISTRY METHOD 03/31/2025 8:07 AM [facility] Anion Gap 5 3 - 11 LAB CHEMISTRY METHOD 03/31/2025 8:07 AM [facility] Glucose 100 70 - 100 mg/dL LAB CHEMISTRY METHOD 03/31/2025 8:07 AM [facility] BUN 15 5 - 25 mg/dL LAB CHEMISTRY METHOD 03/31/2025 8:07 AM EDT [facility] Creatinine 1.06 0.50 - 1.10 mg/dL LAB CHEMISTRY METHOD 03/31/2025 8:07 AM EDT [facility] eGFR 58(L) >=60 mL/min/1. 73m2 LAB CHEMISTRY METHOD 03/31/2025 8:07 AM EDT [facility] Comment:Calculation based on the Chronic Kidney Disease Epidemiology Collaboration (CKD-EPI) equation refit without adjustment for race. BUN/Creatinine Ratio 14.2 LAB CHEMISTRY METHOD 03/31/2025 8:07 AM T [facility] Calcium 9.4 8.5 - 10.5 mg/dL LAB CHEMISTRY METHOD 03/31/2025 8:07 AM EDT [facility] Blood Venous blood specimen / Unknown Venipuncture / Unknown 03/31/2025 6:14 AM EDT 03/31/2025 7:09 AM EDT us Yris Cason MD LAB BLOOD ORDERABLES Final Res ult [facility] [address] [place] [address], [place] [phone] * CT Abdomen Pelvis w Contrast (03/30/2025 [...] Abdomen and Pelvis With IV Contrast Comparison: CT/KO/OT/SC/SR - ABDOMEN AND PELVIS C+ CT - [...] Abdomen and Pelvis With IV Contrast Comparison: CT/KO/OT/SC/SR - ABDOMEN AND PELVIS C+ CT - [...] ED 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 Normal SC, QRS, QT, axis. No acute ischemic changes. No changes of hypokalemia. Kedar Gary MD ECG ORDERABLES Final Result * ECG 12 lead (03/30/2025 3:05 PM EDT) Pathologist [facility] Ventricular Rate ECG 62 BPM GEMUSE Atrial Rate 62 BPM GEMUSE P-R Interval 152 ms GEMUSE QRS Duration 98 ms GEMUSE Q-T Interval 438 ms GEMUSE QTc 444 ms GEMUSE P Wave [place] 48 degrees GEMUSE R [place] -11 degrees GEMUSE T [place] 75 degrees GEMUSE ECG Interpretation Normal sinus rhythm Normal ECG When compared with ECG of 19-SEP-1997 18:53, Nonspecific T wave abnormality no longer evident in Inferior leads T wave amplitude has decreased in Anterior leads Confirmed by Edwin BROWNE JAMES ([id number]) on 03/30/2025 4:36:05 PM GEMUSE 03/30/2025 3:05 PM EDT 03/30/2025 4:36 PM EDT us Kedar Gray MD ECG ORDERABLES Final Result GEMUSE * (ABNORMAL) Urinalysis with reflex microscopic and culture (03/30/2025 2:46 PM EDT) [facility] Specific [place] Urine 1.022 1.003 - 1.030 LAB URINALYSIS - AUTOMATED METHOD 03/30/2025 3:20 PM EDT [facility] pH, Urine 5.0 5.0 - 8.0 pH LAB URINALYSIS - AUTOMATED METHOD 03/30/2025 3:20 PM [facility] Leukocytes, Urine Moderate(A) Negative LAB URINALYSIS - AUTOMATED METHOD 03/30/2025 3:20 PM EDT [facility] Nitrite, Urine Positive(A) Negative LAB URINALYSIS - AUTOMATED METHOD 03/30/2025 3:20 PM EDT [facility] Protein, Urine 100(A) <=Trace mg/dL LAB URINALYSIS - AUTOMATED METHOD 03/30/2025 3:20 PM [facility] Glucose, Urine Negative Negative mg/dL LAB URINALYSIS - AUTOMATED METHOD 03/30/2025 3:20 PM EDT [facility] Ketones, Urine 15(A) Negative mg/dL LAB URINALYSIS - AUTOMATED METHOD 03/30/2025 3:20 PM EDT [facility] Urobilinogen , Urine 1.0 0.2 - 1.0 mg/dL LAB URINALYSIS - AUTOMATED METHOD 03/30/2025 3:20 PM T [facility] Bilirubin, Urine Small(A) Negative LAB URINALYSIS - AUTOMATED METHOD 03/30/2025 3:20 PM EDT [facility] Blood, Urine Negative Negative LAB URINALYSIS - AUTOMATED METHOD 03/30/2025 3:20 PM EDT [facility] RBC, Urine 5.0(H) 0 - 4 /HPF LAB URINALYSIS - AUTOMATED METHOD 03/30/2025 3:20 PM [facility] WBC, Urine 75.2(H) 0 - 4 /HPF LAB URINALYSIS - AUTOMATED METHOD 03/30/2025 3:20 PM EDT [facility] Squamous Epithelial, Urine >100(H) 0 - 60 /LPF LAB URINALYSIS - AUTOMATED METHOD 03/30/2025 3:20 PM [facility] Bacteria, Urine Moderate(A) Negative /HPF LAB URINALYSIS - AUTOMATED METHOD 03/30/2025 3:20 PM [facility] Hyaline Casts, Urine 46.6(H) 0 - 3 /LPF LAB URINALYSIS - AUTOMATED METHOD 03/30/2025 3:20 PM T [facility] Urine Urine specimen obtained by clean catch procedure / Unknown Non-blood Collection / Unknown 03/30/2025 2:46 PM EDT 03/30/2025 2:50 PM EDT us Kedar Gary MD LAB URINE ORDERABLES Final Res ult [facility] [address] [place] [address], [place] [phone] * Arevalo urine culture tube (03/30/2025 2:46 PM EDT) Pathologist [facility] Extra Tube Hold for add-ons. 03/30/2025 4:01 PM EDT [facility] Comment:Auto resulted. Urine Urine specimen obtained by clean catch procedure / Unknown Non-blood Collection / Unknown 03/30/2025 2:46 PM EDT 03/30/2025 2:50 PM EDT us Kedar Gary MD LAB URINE ORDERABLES Final Res ult [facility] [address] [place] [address], [place] [phone] * Culture urine (03/30/2025 2:46 PM EDT) [facility] Culture, Urine No growth 03/31/2025 7:38 AM EDT [facility] Urine Urine specimen obtained by clean catch procedure / Unknown Non-blood Collection / Unknown 03/30/2025 2:46 PM EDT 03/30/2025 3:20 PM EDT Kedar Gary MD LAB MICROBIOLOGY - GENERAL ORD ERABLES Final Result [facility] [address] [place] [address], [place] [phone] * Lactate, with reflex (03/30/2025 2:45 PM EDT) [facility] LACTIC ACID 1.8 0.4 - 2.0 mmol/L LAB CHEMISTRY METHOD 03/30/2025 3:27 PM EDT [facility] Blood Venous blood specimen / Unknown Venipuncture / Unknown 03/30/2025 2:45 PM EDT 03/30/2025 2:50 PM EDT us Kedar Gary MD LAB BLOOD ORDERABLES Final Res ult [facility] [address] [place] [address], * (ABNORMAL) CBC auto differential (03/30/2025 1:36 PM EDT) WBC 14.4(H) 4.8 - 10.8 K/mcL LAB HEMETOLOGY METHOD 03/30/2025 1:54 PM EDT [facility] RBC 5.30(H) 3.80 - 4.80 M/mcL LAB HEMETOLOGY METHOD 03/30/2025 1:54 PM EDT [facility] Hemoglobin 16.8(H) 11.5 - 16.0 g/dL LAB HEMETOLOGY METHOD 03/30/2025 1:54 PM EDT [facility] Hematocrit 47.1(H) 35.0 - 47.0 % LAB HEMETOLOGY METHOD 03/30/2025 1:54 PM EDT [facility] MCV 89.5 79.0 - 98.0 FL LAB HEMETOLOGY METHOD 03/30/2025 1:54 PM EDT [facility] MCH 31.9 27.0 - 32.0 pcg LAB HEMETOLOGY METHOD 03/30/2025 1:54 PM EDT [facility] MCHC 35.7 32.0 - 37.0 g/dL LAB HEMETOLOGY METHOD 03/30/2025 1:54 PM EDT [facility] RDW 11.9 11.0 - 15.0 % LAB HEMETOLOGY METHOD 03/30/2025 1:54 PM EDT [facility] Platelets 383 130 - 400 K/mcL LAB HEMETOLOGY METHOD 03/30/2025 1:54 PM EDT [facility] MPV 9.8 7.0 - 11.0 FL LAB HEMETOLOGY METHOD 03/30/2025 1:54 PM EDT [facility] NRBC 0.0 <1.0 % LAB HEMETOLOGY METHOD 03/30/2025 1:54 PM EDT [facility] NRBC Absolute 0.00 <0.10 K/mcL LAB HEMETOLOGY METHOD 03/30/2025 1:54 PM EDT [facility] Neutrophils Relative 76.0 % LAB HEMETOLOGY METHOD 03/30/2025 1:54 PM EDT [facility] Lymphocytes Relative 16.1 % LAB HEMETOLOGY METHOD [facility] Monocytes Relative 6.8 % LAB HEMETOLOGY METHOD 03/30/2025 1:54 PM [facility] Eosinophils Relative 0.3 % LAB HEMETOLOGY METHOD 03/30/2025 1:[facility] Basophils Relative 0.4 % LAB HEMETOLOGY METHOD 03/30/2025 1:[facility] Immature Granulocytes Relative 0.4 % LAB HEMETOLOGY METHOD 03/30/2025 1:54 PM [facility] Neutrophils Absolute 10.96(H) 1.50 - 7.00 K/mcL LAB HEMETOLOGY METHOD 03/30/2025 1:54 PM EDT [facility] Lymphocytes Absolute 2.33 1.00 - 5.00 K/mcL LAB HEMETOLOGY METHOD 03/30/2025 1:[facility] Monocytes Absolute 0.98 0.20 - 1.00 K/mcL LAB HEMETOLOGY METHOD 03/30/2025 1:[facility] Eosinophils Absolute 0.04 0.00 - 0.50 K/mcL LAB HEMETOLOGY METHOD 03/30/2025 1:54 PM EDT [facility] Basophils Absolute 0.06 0.00 - 0.20 K/mcL LAB HEMETOLOGY METHOD 03/30/2025 1:54 PM EDT [facility] Immature Granulocytes Absolute 0.06(H) 0.00 - 0.03 K/mcL LAB HEMETOLOGY METHOD 03/30/2025 1:54 PM EDT [facility] Blood Venous blood specimen / Unknown Venipuncture / Unknown 03/30/2025 1:36 PM EDT 03/30/2025 1:44 PM EDT us Kedar Gary MD LAB BLOOD ORDERABLES Final Res ult [facility] [address] [place] [address], [place] [phone] * (ABNORMAL) Comprehensive metabolic panel (03/30/2025 1:36 PM EDT) Sodium 135 133 - 145 mmol/L LAB CHEMISTRY METHOD 03/30/2025 2:45 PM [facility] Potassium 2.9(LL) 3.5 - 5.5 mmol/L LAB CHEMISTRY METHOD 03/30/2025 2:45 PM [facility] Chloride 92(L) 96 - 110 mmol/L LAB CHEMISTRY METHOD 03/30/2025 2:45 PM [facility] CO2 34(H) 21 - 32 [...] METHOD 03/30/2025 2:45 PM [facility] Blood Venous blood specimen / Unknown Venipuncture / Unknown 03/30/2025 1:36 PM EDT 03/30/2025 1:44 PM EDT us Kedar Gary MD LAB BLOOD ORDERABLES Final Res ult [facility] [address] [place] [address], * External Colonoscopy Report (10/27/2024 1:56 PM [...] currently active code status orders. Care Teams Vest Tailor Relationship Specialty Start Date End Date Physician, No Pcp PCP - General 03/30/25
== END 2025-06-14 12:53 | disposition home or self-care (01) ==
LOC: HO.HAP 12:52
PROVIDERS: Visit Provider Internal Medicine
DX: Z46.1 Encounter for fitting and adjustment of hearing aid (principal)
CPT/HCPCS: V5266

== ENCOUNTER 2025-06-15 10:20 | Outpatient (AMB) | payer MEDICARE, MEDICAID, SELFPAY ==
[2025-06-15 10:24] VITALS: BP 128/84; PULSE 68; O2SAT 96; BMI 36.6
--- NOTE | 2025-06-15 10:24 | MHC.PC.OV ---
Vital Signs 06/15/25 10:24 Height 5 ft 4 in Intake Visit Reasons: SWV [id number] Allergies penicillin V Allergy (Unknown, Verified 06/07/25 13:49) N/V Penicillins (PENICILLINS) Allergy (Unknown, Verified 06/07/25 13:49) IN HISTORY AND DOESN'T REMEMBER carisoprodol (From [facility]) Adverse Reaction (Intermediate, Verified 06/07/25 13:49) VOMITED amoxicillin Allergy (Unknown, Uncoded 02/24/25 11:10) GI upset Tobacco use date assessed: 02/24/25 Dental Screening Dental Screen Date: 10/13/24 [facility] Medical History Thoracic disc herniation Generalized arthritis Back pain Urinary urgency Incomplete emptying of bladder Abscess of breast, right COPD (chronic obstructive pulmonary disease) Deafness Hyperlipidemia Palpitations IBS (irritable bowel syndrome) Lipid disorder Hypertension, essential Surgical History History of surgery History of removal of cyst History of colonoscopy Family History Father Dementia Mother No problems noted. Other Mental health disorder Social History Housing: Apartment Alcohol intake: current Alcohol intake frequency: 0-2 drinks per day Patient Tobacco Use Status: Current everyday Tobacco user Tobacco use type: Cigarette Cigarettes Per Day: 10 e-Cigarette/Vaping Use: Never Used Substance Use Type: Marijuana Advance Directives Date on File: 09/13/22 service: No Current occupational status: unemployed and retired Sexual orientation: Straight/Heterosexual Gender identity: Female Cognitive needs: No Hearing needs: Yes Vision needs: Yes Questionnaire Thrive Questionnaire Date Thrive assessed: 04/09/25 I am a: Patient What is your living situation today?: I have a steady place to live Within the past 12 months, did the food you bought not last and you didn't have the money to get more?: Sometimes True THRIVE Score: 1 MARK ANTHONY-7 AMB Questionnaire MARK ANTHONY-7 Date MARK ANTHONY - 7 assessed: 10/13/24 Source: Developed by Drs. Dejan Cruz, Louise Gomez, Leodan Harrison and colleagues, with an educational maria eugenia from [employer]. Physical exam (Primary Care) Tobacco/Smoking Status: Tobacco use Status Tobacco use date assessed 02/24/25 04/21/25 11:53 Patient Tobacco Use Status Current everyday Tobacco 04/21/25 11:53 Tobacco use type Cigarette 04/21/25 11:53 e-Cigarette/Vaping Use Never Used 04/21/25 11:53 Thrive Assessment: Date of Thrive Assessment Date Thrive assessed 04/09/25 04/21/25 11:53 Coding
--- NOTE | 2025-06-15 10:25 | A.OFFVIS_ITS ---
Intake Vital Signs 06/15/25 10:24 Height 5 ft 4 in Weight 213 lb BMI 36.6 BP 128/84 Blood Pressure Location Lt brachial Position Sitting Pulse 68 Pulse Source Pulse Oximeter Pulse Oximetry (%) 96 Intake Visit Reasons: [facility] G0439 Patient Registration Manager Required: Yes Patient Registration Manager Language: Brazilian Sign Language Accompanied by: Self / Same As Patient Allergies penicillin V Allergy (Unknown, Verified 06/15/25 10:25) N/V Penicillins (PENICILLINS) Allergy (Unknown, Verified 06/15/25 10:25) IN HISTORY AND DOESN'T REMEMBER carisoprodol (From [facility]) Adverse Reaction (Intermediate, Verified 06/15/25 10:25) VOMITED amoxicillin Allergy (Unknown, Uncoded 02/24/25 11:10) GI upset Medication List - Last Reconciled 06/15/25 by Lupillo Vázquez MD aspirin 81 mg PO DAILY blood pressure monitor As directed [Cane with 4 prongs As directed] [Cpap machine Use As directed] cyclobenzaprine 10 mg PO BEDTIME PRN diltiazem HCl CD 240 mg PO DAILY hydrochlorothiazide 12.5 mg PO DAILY losartan 50 mg PO DAILY nystatin 1 appl topical .qhs 30 days potassium chloride 40 mEq (15 mL) PO ONCE 5 days prochlorperazine maleate 10 mg PO BID PRN 10 days simvastatin 10 mg PO BEDTIME Do you need a note to return to daycare/school/sports/work: No HPI [facility] G0439 HPI Details AWV Medical/social history reviewed Past medical history reviewed [place] of care / care team list updated Surgical/ hospitalization history reviewed Current medications including OTC and supplements reviewed Family history reviewed Tobacco controlled form updated Alcohol use form updated Illicit drug use in social history reviewed Current diagnosis of depression ?screening updated Appropriate PHQ 2/PHQ-9 completed . Vital signs reviewed Alcohol tobacco drug use reviewed and discussed . MMSE completed . ? Fall risk: ?Assessed Fall history: ?None Have you had any falls with injury in the past year?? No Have you had 2 or more falls in the past year?? No Fall risk assessment completed Home safety discussed with the patient Functional ability assessed and discussed and documented Activities of daily living reviewed and appropriate actions taken . HRA filled out by the patient and reviewed by provider and scanned . Appropriate written screening schedule established . Any health advise needed provided . Advance care planning discussed with the patient she will take healthcare proxy paperwork along, MOLST forms filled Examination IPPE/AWE: Balance intact Romberg intact Tandem walk intact walk-in turn intact rise from sit to stand intact . ?Hearing ?Patient is hearing impaired . Medication list reviewed, patient is stable on medications All other providers patient is seeing discussed and noted . HPI Comments History of Present Illness Details History of Present Illness The patient is a 65 year old female presenting with a Medicare wellness visit. Urinary Incontinence: - The patient reports a long-standing hi story of urinary incontinence and increased urinary frequency. - She experiences urine leakage when she goes to the bathroom, which she describes as urgency, as well as when she sneezes or coughs. - The patient is currently under the car e of a specialist for this condition and has an upcoming appointment for bladder evaluation. Medical History: - Urinary incontinence Patient is deaf both ears and need referral to ENT and hearing test for new hearing aids Social History: - Functional Status: The patient reports she is able to drive, do groceries, perform housecleaning, cook, and manage her finances independently. - Tobacco Use: The patient is a current smoker but plans to quit in July. - Caffeine Intake: She no longer drinks a lot of coffee. Diagnostic Results: - Mammogram is up to date. Colon screening Up todate [facility] Medical History Thoracic disc herniation Generalized arthritis Back pain Urinary urgency Incomplete emptying of bladder Abscess of breast, right COPD (chronic obstructive pulmonary disease) Deafness Hyperlipidemia Palpitations IBS (irritable bowel syndrome) Lipid disorder Hypertension, essential Surgical History History of surgery History of removal of cyst History of colonoscopy Family History Father Dementia Mother No problems noted. Other Mental health disorder Social History Housing: Apartment Alcohol intake: current Alcohol intake frequency: 0-2 drinks per day Patient Tobacco Use Status: Current everyday Tobacco user Tobacco use type: Cigarette Cigarettes Per Day: 10 e-Cigarette/Vaping Use: Never Used Substance Use Type: Marijuana Advance Directives Date on File: 09/13/22 service: No Current occupational status: unemployed and retired Sexual orientation: Straight/Heterosexual Gender identity: Female Cognitive needs: No Hearing needs: Yes Vision needs: Yes Questionnaire Medicare Wellness Checkup [age] What gender do you identify with?: female During the past 4 weeks, how much have you been bothered by emotional problems such as feeling anxious, depressed, irritable, sad or downhearted, and blue?: not at all During the past 4 weeks, has your physical & emotional health limited your social activities with family, friends, neighbors, or groups?: not at all During the past 4 weeks, how much bodily pain have you generally had?: very mild pain During the past 4 weeks, was someone available to help you if you needed & wanted help?: no, not at all During the past 4 weeks, what was the hardest physical activity you could do for at least 2 minutes?: moderate Can you get to places out of walking distance without help? (For eg., can you travel alone on buses, taxis or drive your car?): Yes Can you go shopping for groceries or clothes without someone's help?: Yes Can you prepare your own meals?: Yes Can you do your housework without help?: Yes Because of any health problems, do you need the help of another person with your personal care needs such as eating, bathing, dressing or getting around the house?: No Can you handle your own money without help?: Yes During the past 4 weeks, how would you rate your health in general?: good During the past 4 weeks how have things been going for you?: pretty well Are you having difficulties driving your car?: no Do you always fasten your seat belt when you are in a car?: yes, usually During past 4 weeks, have you been bothered by the following: never: Sexual problems?, Trouble eating well? and Problems using the telephone? and seldom: Falling or dizzy when standing up, Teeth or denture problems? and Tiredness or fatigue? Have you fallen 2 or more times in the past year?: No Are you afraid of falling?: Yes Are you a smoker?: yes, and I might quit During the past 4 weeks, how many drinks of wine, beer, or other alcoholic beverages did you have?: no alcohol at all Do you exercise for about 20 minutes 3 or more times a week?: yes, some of the time Have you been given information to help with the following?: no: Hazards in your house that might hurt you? and no: Keeping track of your medications? How often do you have trouble taking medicines the way you have been told to take them?: I always take medicine as prescribed How confident are you that you can control & manage most of your health problems?: somewhat confident What is your race?: White Mini Mental State Exam (MMSE) Orientation What is the (year) (season) (date) (day) (month)?: year, season, date, day and month Where are we (state) (county) (town or city) (hospital) (floor)?: state, county, town or city, hospital/clinic and floor Score Score: 10 Activity of Daily Living Bathing - sponge bath, tub bath or shower: receives no assistance (gets in/out by self, if usual bathing means Dressing - getting clothes from closets & drawers, including inner/outer garments & fasteners.: gets clothes & gets completely dressed without help Toileting - going to the 'toilet room' for urine/bowel elimination & cleaning self/arranging clothes: goes to toilet room, cleans self, arranges clothes without help Transfer: moves in & out of bed and chair without help (may use support object) Continence: controls urination/bowel movements completely by self Feeding: feeds self without help Total Score: 0 Information obtained from: patient Using telephone: independent Traveling: independent Shopping: independent Preparing meals: independent Housework: independent Taking medicine: independent Managing money: independent PHQ-9 Over the last 2 weeks, how often have you been bothered by any of the following problems? 1. Little interest or pleasure in doing things: not at all 2. Feeling down, depressed, or hopeless: several days 3. Trouble falling or staying asleep, or sleeping too much: several days 4. Feeling tired or having little energy: several days 5. Poor appetite or overeating: not at all 6. Feeling bad about yourself - or that you are a failure or have let yourself or your family down: several days 7. Trouble concentrating on things, such as reading the newspaper or watching television: not at all 8. Moving or speaking so slowly that other people could have noticed. Or the opposite - being so fidgety or restless that you have been moving around a lot more than usual: not at all 9. Thoughts that you would be better off or of hurting yourself in some way: not at all Total score: 4 Depression Screening Interpretation: Negative Depression Screening Done: Yes 00224 - PHQ-9 Billing: Yes Source: Developed by Drs. Dejan Cruz, Louise Gomez, Leodan Harrison and colleagues, with an educational maria eugenia from [employer]. Review of Systems Narrative Review of Systems . - General: No fever no chills - Neurological: No headaches no dizziness - Ear nose throat: No sore throat no hearing difficulty no ear pain - Cardiovascular: No syncope, no chest pain, no palpitations - Gastrointestinal: No nausea vomiting or diarrhea - Endocrine: No polyuria polydipsia no heat intolerance - Genitourinary: No dysuria , no blood in urine Physical Exam Exam Exam: Physical Exam - General: No acute distress - HEENT: No acute findings - Neck: Supple - Respiratory system: comfortable in no distress - Gastrointestinal: No pain - Extremities: No new findings - MARRIAGE THERAPIST: Alert awake oriented x3 motor intact - Skin: Normal turgor Vital Signs: Last Vital Signs Pulse 68 06/15/25 10:24 BP 128/84 06/15/25 10:24 Pulse Ox 96 06/15/25 10:24 BMI result Body Mass Index 36.6 Assessment & Plan Assessment & Plan (1) Medicare annual wellness visit, subsequent: Code(s): Z00.00 - Encounter for general adult medical examination without abnormal findings (2) Deafness, bilateral: Code(s): H91.93 - Unspecified hearing loss, bilateral (3) Hypertension, essential: Code(s): I10 - Essential (primary) hypertension (4) Lipid disorder: Code(s): E78.9 - Disorder of lipoprotein metabolism, unspecified (5) Obesity due to excess calories: Code(s): E66.09 - Other obesity due to excess calories Qualifiers: Body mass index: BMI 38.0-38.9 Obesity classification: adult class 2 (BMI 35 - 39.9) Serious obesity comorbidity presence: with serious comorbidity Qualified Code(s): E66.01 - Morbid (severe) obesity due to excess calories; Z68.38 - Body mass index [BMI] 38.0-38.9, adult (6) Hypertensive nephropathy: Code(s): I12.9 - Hypertensive chronic kidney disease with stage 1 through stage 4 chronic kidney disease, or unspecified chronic kidney disease (7) COPD (chronic obstructive pulmonary disease): Code(s): J44.9 - Chronic obstructive pulmonary disease, unspecified Qualifiers: COPD type: emphysema Emphysema type: panlobular Qualified Code(s): J43.1 - Panlobular emphysema (8) Urinary incontinence, mixed: Code(s): N39.46 - Mixed incontinence Plan Problem List - Annual Medicare wellness visit - Urinary incontinence - Tobacco use - Preventative care: Mammogram - Preventative care: Advance care planning - HTN - Lab order needed for next visit Plan - The patient will continue follow-up with a urology specialist for urinary incontinence. - A referral will be placed for an ENT consultation in [place]. - Blood work will be ordered for the patient to complete in three months, around the end of August or early September, before her next follow-up appointment. - The patient was provided with a depression screening questionnaire to complete before leaving. - The patient was advised to complete paperwork for a healthcare proxy and advance directives (MOLST form) and bring them to her next visit. - The patient will schedule a follow-up appointment in three months and another Medicare wellness visit in one year. - continue meds Orders: Orders Complete Blood Count Auto Diff Today E66.01 - Morbid (severe) obesity due to excess calories, E78.9 - Disorder of lipoprotein metabolism, unspecified, I10 - Essential (primary) hypertension, I12.9 - Hypertensive chronic kidney disease with stage 1 through stage 4 chronic kidney disease, or unspecified chronic kidney disease, J43.1 - Panlobular emphysema, N39.46 - Mixed incontinence, Z68.3 8 - Body mass index [BMI] 38.0-38.9, adult Comprehensive Met. Panel Today E66.01 - Morbid (severe) obesity due to excess calories, E78.9 - Disorder of lipoprotein metabolism, unspecified, I10 - Essential (primary) hypertension, I12.9 - Hypertensive chronic kidney disease with stage 1 through stage 4 chronic kidney disease, or unspecified chronic kidney disease, J43.1 - Panlobular emphysema, N39.46 - Mixed incontinence, Z68.38 - Body mass index [BMI] 38.0-38.9, adult LDL Cholesterol Direct Today E66.01 - Morbid (severe) obesity due to excess calories, E78.9 - Disorder of lipoprotein metabolism, unspecified, I10 - Essential (primary) hypertension, I12.9 - Hypertensive chronic kidney disease with stage 1 through stage 4 chronic kidney disease, or unspecified chronic kidney disease, J43.1 - Panlobular emphysema, N39.46 - Mixed incontinence, Z68.38 - Body mass index [BMI] 38.0-38.9, adult Referrals Speech and Hearing Referral H91.93 - Unspecified hearing loss, bilateral Ear/Nose/Throat Referral H91.93 - Unspecified hearing loss, bilateral Quality Reporting (2019) Depression/Bipolar (159/160/161/177) PHQ-9: Total score: 4 Coding Level of Care Code Medicare Subsequent (G0439) Est Pt Level 3 (57252) Diagnoses Medicare annual wellness visit, subsequent Z00.00 Deafness, bilateral H91.93 Hypertension, essential I10 Lipid disorder E78.9 Class 2 severe obesity due to excess calories with serious comorbidity and body mass index (BMI) of 38.0 to 38.9 in adult E66.01; Z68.38 Body mass index: BMI 38.0-38.9 Obesity classification: adult class 2 (BMI 35 - 39.9) Serious obesity comorbidity presence: with serious comorbidity Hypertensive nephropathy I12.9 Panlobular emphysema J43.1 COPD type: emphysema Emphysema type: panlobular Urinary incontinence, mixed N39.46 CPT Codes Advance Care Planning - Time spent: 1-15 minutes, on File ([id number]) Additional Codes PHQ-9 - 50419 - PHQ-9 Billing: Yes ([id number]) Advance Care Planning Forms completed: Health Care Proxy and MOLST Time spent: 1-15 minutes, on File Actual minutes spent: 6
--- OUTSIDE RECORDS SUMMARY | 2025-06-15 12:59 | XMS_ITS | Clinical Summary ---
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 Phone Physician, No Pcp Primary [...] History of uncomplicated diverticulitis Recent CT 03/30/2025 [facility] negative for diverticulitis Resolved Problems Problem Noted Date Diagnosed Date Resolved Date UTI (urinary tract infection) 03/30/2025 03/31/2025 Encounters Date Type Department Care Team Description 05/19/2025 11:00 AM EST Procedure visit [facility] 175 [facility] [address] [place] [phone] Richard Osullivan MD Chronic migraine without aura without status migrainosus, not intractable (Primary Dx) 04/20/2025 8:30 AM EDT Office Visit [facility] 175 [facility] [address] [place] [phone] Paige Charles PA Chronic migraine without aura without status migrainosus, not intractable (Primary Dx); Cerebrovascular accident (CVA), unspecified mechanism (CMS/HCC V24, CMS/HCC V28) 04/02/2025 1:00 PM EDT Office Visit Gastroenterology - 299 [facility] 299 [facility] [address] [place] [phone] Marjorie Taylor PA Colicky LLQ abdominal pain (Primary Dx); Diverticulitis large intestine w/o perforation or abscess w/o bleeding; Chronic idiopathic constipation 03/30/2025 1:52 PM EDT - 03/31/2025 1:13 PM EDT Hospital Encounter [facility] Urology Unit [address] [place] [phone] Kedar Gary MD Bukalo, Nermina, MD Jones, Christopher, MD Seralathan, Manikandan, MD Acute cystitis without hematuria (Primary Dx); Acute kidney injury (CMS/HCC V24); Hypokalemia Discharge Disposition: Home or Self Care 03/29/2025 Telephone Gastroenterology - [address] [phone] Emir Leblanc MD 03/24/2025 Telephone Gastroenterology - [address] [phone] Emir Leblanc MD 03/24/2025 Telephone Gastroenterology - [address] [phone] Emir Leblanc MD from Last 3 Months [...] Description 07/21/2025 11:00 AM EST Office Visit [facility] [address] [phone] Paige Charles PA [address] [place] [phone] 08/18/2025 1:00 PM EST Procedure visit [facility] [address] [phone] Richard Osullivan MD [address] [place] [address] Health Maintenance Due Date Last Done Comments [...] AM EDT) WBC 10.7 4.8 - 10.8 [facility] LAB HEMETOLOGY METHOD 03/31/2025 7:44 AM EDT [facility] RBC 4.20 3.80 - 4.80 M/mcL LAB HEMETOLOGY METHOD 03/31/2025 7:44 AM EDT [facility] Hemoglobin 13.1 11.5 - 16.0 g/dL LAB HEMETOLOGY METHOD 03/31/2025 7:44 AM EDT [facility] Hematocrit 38.1 35.0 - 47.0 % LAB HEMETOLOGY METHOD 03/31/2025 7:44 AM EDT [facility] MCV 91.1 79.0 - 98.0 FL LAB HEMETOLOGY METHOD 03/31/2025 7:44 AM EDT [facility] MCH 31.3 27.0 - 32.0 pcg LAB HEMETOLOGY METHOD 03/31/2025 7:44 AM EDT [facility] MCHC 34.4 32.0 - 37.0 g/dL LAB HEMETOLOGY [facility] RDW 12.1 11.0 - 15.0 % LAB HEMETOLOGY METHOD 03/31/2025 7:44 AM EDT [facility] Platelets 277 130 - 400 K/mcL LAB HEMETOLOGY METHOD 03/31/2025 7:44 AM EDT [facility] MPV 10.3 7.0 - 11.0 FL LAB HEMETOLOGY METHOD 03/[facility] NRBC 0.0 <1.0 % LAB HEMETOLOGY METHOD 03/31/2025 7:44 AM EDT [facility] NRBC Absolute 0.00 <0.10 K/mcL LAB HEMETOLOGY METHOD 03/31/2025 7:44 AM [facility] Blood Venous blood specimen / Unknown Venipuncture / Unknown 03/31/2025 6:14 AM EDT 03/31/2025 7:09 AM EDT us Yris Cason MD LAB BLOOD ORDERABLES Final Res ult [facility] [address] [place] [address], [place] [phone] * Magnesium (03/31/2025 6:14 AM EDT) Only the most recent of2 resultswithin the time period is included. Pathologist [facility] Magnesium 2.1 1.9 - 2.6 mg/dL LAB CHEMISTRY METHOD 03/31/2025 8:07 AM EDT [facility] Blood Venous blood specimen / Unknown Venipuncture / Unknown 03/31/2025 6:14 AM EDT 03/31/2025 7:09 AM EDT Rima PARNELL LAB BLOOD ORDERABLES Final R esult [facility] [address] [place] [address], [place] [phone] * (ABNORMAL) Basic metabolic panel (03/31/2025 6:14 AM EDT) Only the most recent of2 resultswithin the time period is included. Pathologist [facility] Sodium 137 133 - 145 mmol/L LAB CHEMISTRY METHOD 03/31/2025 8:07 AM [facility] Potassium 3.5 3.5 - 5.5 mmol/L LAB CHEMISTRY METHOD 03/31/2025 8:07 AM [facility] Chloride 99 96 - 110 mmol/L LAB CHEMISTRY METHOD 03/31/2025 8:07 AM [facility] CO2 33(H) 21 - 32 mmol/L LAB CHEMISTRY METHOD 03/31/2025 8:07 AM [facility] Anion Gap 5 3 - 11 LAB CHEMISTRY METHOD 03/31/2025 8:07 AM [facility] Glucose 100 70 - 100 mg/dL LAB CHEMISTRY METHOD 03/31/2025 8:07 AM [facility] BUN 15 5 - 25 mg/dL LAB CHEMISTRY METHOD 03/31/2025 8:07 AM EDT [facility] Creatinine 1.06 0.50 - 1.10 mg/dL LAB CHEMISTRY METHOD 03/31/2025 8:07 AM EDT [facility] LAB eGFR 58(L) >=60 mL/min/1. 73m2 LAB CHEMISTRY METHOD 03/31/2025 8:07 AM EDT [facility] Comment:Calculation based on the Chronic Kidney Disease Epidemiology Collaboration (CKD-EPI) equation refit without adjustment for race. BUN/Creatinine Ratio 14.2 LAB CHEMISTRY METHOD 03/31/2025 8:07 AM T [facility] Calcium 9.4 8.5 - 10.5 mg/dL LAB CHEMISTRY METHOD 03/31/2025 8:07 AM EDT [facility] Blood Venous blood specimen / Unknown Venipuncture / Unknown 03/31/2025 6:14 AM EDT 03/31/2025 7:09 AM EDT us Yris Cason MD LAB BLOOD ORDERABLES Final Res ult [facility] [address] [place] [address], [place] [phone] * CT Abdomen Pelvis w Contrast (03/30/2025 [...] Abdomen and Pelvis With IV Contrast Comparison: CT/KO/OT/AL/SR - ABDOMEN AND PELVIS C+ CT - [...] Abdomen and Pelvis With IV Contrast Comparison: CT/KO/OT/AL/SR - ABDOMEN AND PELVIS C+ CT - [...] ED Physician in the absence of a legal support manager: yes Interpretation: Interpretation: normal Details: Normal sinus rhythm with a ventricular rate of 62 bpm. Normal AL, QRS, QT, axis. No acute ischemic changes. No changes of hypokalemia. Kedar Gary MD ECG ORDERABLES Final Result * ECG 12 lead (03/30/2025 3:05 PM EDT) Pathologist [facility] Ventricular Rate ECG 62 BPM GEMUSE Atrial Rate 62 BPM GEMUSE P-R Interval 152 ms GEMUSE QRS Duration 98 ms GEMUSE Q-T Interval 438 ms GEMUSE QTc 444 ms GEMUSE P Wave Elbe 48 degrees GEMUSE R Elbe -11 degrees GEMUSE T Elbe 75 degrees GEMUSE ECG Interpretation Normal sinus [...] microscopic and culture (03/30/2025 2:46 PM EDT) [facility] [place] Urine 1.022 1.003 - 1.030 LAB URINALYSIS - AUTOMATED METHOD 03/30/2025 3:20 PM EDT [facility] pH, Urine 5.0 5.0 - 8.0 pH LAB URINALYSIS - AUTOMATED METHOD 03/30/2025 3:20 PM [facility] Leukocytes, Urine Moderate(A) Negative LAB URINALYSIS - AUTOMATED METHOD 03/30/2025 3:20 PM EDT [facility] Nitrite, Urine Positive(A) Negative LAB URINALYSIS - AUTOMATED METHOD 03/30/2025 3:20 PM EDT [facility] Protein, Urine 100(A) <=Trace mg/dL LAB URINALYSIS - AUTOMATED METHOD 03/30/2025 3:20 PM [facility] Glucose, Urine Negative Negative mg/dL LAB URINALYSIS - AUTOMATED METHOD 03/30/2025 3:20 PM EDT [facility] Ketones, Urine 15(A) Negative mg/dL LAB URINALYSIS - AUTOMATED METHOD 03/30/2025 3:20 PM EDT [facility] Urobilinogen , Urine 1.0 0.2 - 1.0 mg/dL LAB URINALYSIS - AUTOMATED METHOD 03/30/2025 3:20 PM T [facility] Bilirubin, Urine Small(A) Negative LAB URINALYSIS - AUTOMATED METHOD 03/30/2025 3:20 PM EDT [facility] Blood, Urine Negative Negative LAB URINALYSIS - AUTOMATED METHOD 03/30/2025 3:20 PM EDT [facility] RBC, Urine 5.0(H) 0 - 4 /HPF LAB URINALYSIS - AUTOMATED METHOD 03/30/2025 3:20 PM [facility] WBC, Urine 75.2(H) 0 - 4 /HPF LAB URINALYSIS - AUTOMATED METHOD 03/30/2025 3:20 PM EDT [facility] Squamous Epithelial, Urine >100(H) 0 - 60 /LPF LAB URINALYSIS - AUTOMATED METHOD 03/30/2025 3:20 PM [facility] Bacteria, Urine Moderate(A) Negative /HPF LAB URINALYSIS - AUTOMATED METHOD 03/30/2025 3:20 PM [facility] Hyaline Casts, Urine 46.6(H) 0 - 3 /LPF LAB URINALYSIS - AUTOMATED METHOD 03/30/2025 3:20 PM T [facility] Urine Urine specimen obtained by clean catch procedure / Unknown Non-blood Collection / Unknown 03/30/2025 2:46 PM EDT 03/30/2025 2:50 PM EDT us Kedar Gary MD LAB URINE ORDERABLES Final Res ult [facility] [address] [place] [address], [place] [phone] * Arevalo urine culture tube (03/30/2025 2:46 PM EDT) Pathologist [facility] Extra Tube Hold for add-ons. 03/30/2025 4:01 PM EDT [facility] Comment:Auto resulted. Urine Urine specimen obtained by clean catch procedure / Unknown Non-blood Collection / Unknown 03/30/2025 2:46 PM EDT 03/30/2025 2:50 PM EDT us Kedar Gary MD LAB URINE ORDERABLES Final Res ult [facility] [address] [place] [address], [place] [phone] * Culture urine (03/30/2025 2:46 PM EDT) [facility] Culture, Urine No growth 03/31/2025 7:38 AM EDT [facility] Urine Urine specimen obtained by clean catch procedure / Unknown Non-blood Collection / Unknown 03/30/2025 2:46 PM EDT 03/30/2025 3:20 PM EDT Kedar Gary MD LAB MICROBIOLOGY - GENERAL ORD ERABLES Final Result [facility] [address] [place] [address], [place] [phone] * Lactate, with reflex (03/30/2025 2:45 PM EDT) [facility] LACTIC ACID 1.8 0.4 - 2.0 mmol/L LAB CHEMISTRY METHOD 03/30/2025 3:27 PM EDT [facility] Blood Venous blood specimen / Unknown Venipuncture / Unknown 03/30/2025 2:45 PM EDT 03/30/2025 2:50 PM EDT us Kedar Gary MD LAB BLOOD ORDERABLES Final Res ult [facility] [address] [place] [address], * (ABNORMAL) CBC auto differential (03/30/2025 1:36 PM EDT) WBC 14.4(H) 4.8 - 10.8 K/mcL LAB HEMETOLOGY METHOD 03/30/2025 1:54 PM EDT [facility] RBC 5.30(H) 3.80 - 4.80 M/mcL LAB HEMETOLOGY METHOD 03/30/2025 1:54 PM EDT [facility] Hemoglobin 16.8(H) 11.5 - 16.0 g/dL LAB HEMETOLOGY METHOD 03/30/2025 1:54 PM EDT [facility] Hematocrit 47.1(H) 35.0 - 47.0 % LAB HEMETOLOGY METHOD 03/30/2025 1:54 PM EDT [facility] MCV 89.5 79.0 - 98.0 FL LAB HEMETOLOGY METHOD 03/30/2025 1:54 PM EDT [facility] MCH 31.9 27.0 - 32.0 pcg LAB HEMETOLOGY METHOD 03/30/2025 1:54 PM EDT [facility] MCHC 35.7 32.0 - 37.0 g/dL LAB HEMETOLOGY METHOD 03/30/2025 1:54 PM EDT [facility] RDW 11.9 11.0 - 15.0 % LAB HEMETOLOGY METHOD 03/30/2025 1:54 PM EDT [facility] Platelets 383 130 - 400 K/mcL LAB HEMETOLOGY METHOD 03/30/2025 1:54 PM EDT [facility] MPV 9.8 7.0 - 11.0 FL LAB HEMETOLOGY METHOD 03/30/2025 1:54 PM EDT [facility] NRBC 0.0 <1.0 % LAB HEMETOLOGY METHOD 03/30/2025 1:54 PM EDT [facility] NRBC Absolute 0.00 <0.10 K/mcL LAB HEMETOLOGY METHOD 03/30/2025 1:54 PM EDT [facility] Neutrophils Relative 76.0 % LAB HEMETOLOGY METHOD 03/30/2025 1:54 PM EDT [facility] Lymphocytes Relative 16.1 % LAB HEMETOLOGY [facility] Monocytes Relative 6.8 % LAB HEMETOLOGY METHOD 03/30/2025 1:54 PM [facility] Eosinophils Relative 0.3 % LAB HEMETOLOGY METHOD 03/30/2025 1:[facility] Basophils Relative 0.4 % LAB HEMETOLOGY METHOD 03/30/2025 1:[facility] Immature Granulocytes Relative 0.4 % LAB HEMETOLOGY METHOD 03/30/2025 1:54 PM [facility] Neutrophils Absolute 10.96(H) 1.50 - 7.00 K/mcL LAB HEMETOLOGY METHOD 03/30/2025 1:54 PM EDT [facility] Lymphocytes Absolute 2.33 1.00 - 5.00 K/mcL LAB HEMETOLOGY METHOD 03/30/2025 1:[facility] Monocytes Absolute 0.98 0.20 - 1.00 K/mcL LAB HEMETOLOGY METHOD 03/30/2025 1:[facility] Eosinophils Absolute 0.04 0.00 - 0.50 K/mcL LAB HEMETOLOGY METHOD 03/30/2025 1:54 PM EDT [facility] Basophils Absolute 0.06 0.00 - 0.20 K/mcL LAB HEMETOLOGY METHOD 03/30/2025 1:54 PM EDT [facility] Immature Granulocytes Absolute 0.06(H) 0.00 - 0.03 K/mcL LAB HEMETOLOGY METHOD 03/30/2025 1:54 PM EDT [facility] Blood Venous blood specimen / Unknown Venipuncture / Unknown 03/30/2025 1:36 PM EDT 03/30/2025 1:44 PM EDT us Kedar Gary MD LAB BLOOD ORDERABLES Final Res ult [facility] [address] [place] [address], [place] [phone] * (ABNORMAL) Comprehensive metabolic panel (03/30/2025 1:36 PM EDT) Sodium 135 133 - 145 mmol/L LAB CHEMISTRY METHOD 03/30/2025 2:45 PM [facility] Potassium 2.9(LL) 3.5 - 5.5 mmol/L LAB CHEMISTRY METHOD 03/30/2025 2:45 PM [facility] Chloride 92(L) 96 - 110 mmol/L LAB CHEMISTRY METHOD 03/30/2025 2:45 PM [facility] CO2 34(H) 21 - 32 mmol/L LAB CHEMISTRY METHOD 03/30/2025 2:45 PM [facility] Anion Gap 9 3 - 11 LAB CHEMISTRY METHOD 03/30/2025 2:45 PM [facility] Glucose 142(H) 70 - 100 mg/dL LAB CHEMISTRY METHOD 03/30/2025 2:45 PM [facility] BUN 15 5 - 25 mg/dL LAB CHEMISTRY METHOD 03/30/2025 2:45 PM [facility] Creatinine 1.52(H) 0.50 - 1.10 mg/dL LAB CHEMISTRY METHOD 03/30/2025 2:45 PM [facility] eGFR 38(L) >=60 mL/min/1. 73m2 LAB CHEMISTRY METHOD 03/30/2025 2:45 PM [facility] Comment:Calculation based on the Chronic Kidney Disease Epidemiology Collaboration (CKD-EPI) equation refit without adjustment for race. BUN/Creatinine Ratio 9.9 LAB CHEMISTRY METHOD 03/30/2025 2:45 PM [facility] Calcium 10.1 8.5 - 10.5 mg/dL LAB CHEMISTRY METHOD 03/30/2025 2:45 PM [facility] AST (SGOT) 68(H) 10 - 42 unit/L LAB CHEMISTRY METHOD 03/30/2025 2:45 PM [facility] ALT (SGPT) 59 10 - 60 unit/L LAB CHEMISTRY METHOD 03/30/2025 2:45 PM [facility] Alkaline Phosphatase 77 42 - 121 unit/L LAB CHEMISTRY METHOD 03/30/2025 2:45 PM [facility] Total Protein 7.6 6.0 - 8.0 g/dL LAB CHEMISTRY METHOD 03/30/2025 2:45 PM [facility] Albumin 4.4 3.2 - 5.0 g/dL LAB CHEMISTRY METHOD 03/30/2025 2:45 PM [facility] Total Bilirubin 1.5(H) 0.0 - 1.4 mg/dL LAB CHEMISTRY METHOD 03/30/2025 2:45 PM [facility] Blood Venous blood specimen / Unknown Venipuncture / Unknown 03/30/2025 1:36 PM EDT 03/30/2025 1:44 PM EDT us Kedar Gary MD LAB BLOOD ORDERABLES Final Res ult [facility] [address] [place] [address], * External Colonoscopy Report (10/27/2024 1:56 PM [...] currently active code status orders. 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
== END 2025-06-15 11:06 | disposition home or self-care (01) ==
PROVIDERS: PCP Internal Medicine; Visit Provider Internal Medicine
DX: Z00.00 Encounter for general adult medical examination without abnormal findings (principal); I12.9 Hypertensive chronic kidney disease with stage 1 through stage 4 chronic kidney disease, or unspecified chronic kidney disease; E66.01 Morbid (severe) obesity due to excess calories; J43.1 Panlobular emphysema; Z68.38 Body mass index [BMI] 38.0-38.9, adult; H91.93 Unspecified hearing loss, bilateral; I10 Essential (primary) hypertension; E78.9 Disorder of lipoprotein metabolism, unspecified; N39.46 Mixed incontinence

== ENCOUNTER → 2025-06-15 10:20 | Outpatient (BNVA) | payer MEDICARE, MEDICAID, SELFPAY | PROVIDERS: PCP Internal Medicine; Visit Provider Internal Medicine | DX: Z13.31 Encounter for screening for depression (principal) | CPT/HCPCS: 96127 ==